=== PATIENT | female | born 1950 | race Caucasian/White ===

== ENCOUNTER 2017-01-28 19:26 | Inpatient (IN) | payer MEDICARE, OTHER ==
[~2017-01-28] VITALS: Ht 167.6 cm; Wt 48.1 kg
[~2017-01-28 19:26] MED LIST: BUDE1AER2 IH; FURO-570 PO; GLIP10TA12 PO; MULT1TAB12 PO; OMEP20EC6 PO; PRED10TA PO; SPIMDI INH; [UNRECOGNIZED DRUG - CODE] PO; [UNRECOGNIZED DRUG - CODE] PO
--- NOTE | 2017-01-28 19:26 | NUR ---
BIBA TO ER BED 3
[2017-01-28 19:32] VITALS: BP 112/84
[2017-01-28] MEDS ORDERED: NACL 0.9% 1,000 ML IV ONE (19:33)
--- NOTE | 2017-01-28 19:45 | NUR ---
PT IS 66/F BIBA TO ED C/O LOW BS 41MG/DL, D10% WAS GIVEN ENROUTE, WITH AGONAL RESPIRATIONS, DIAPHORETIC, SINUS TACHYCARDIA, GCS OF 3, 10 MINS AFER ADMINISTERING D10% BS OF 71MG/DL. NOW BS OF 107MG/DL, GCS 15. MED HX OF DM, HTN, COPD DENIES D; SKIN IS PINK/WARM/DRY; AAOX4 WITH EVEN AND STEADY GAIT; LUNGS CLEAR BL; HR EVEN AND REGULAR; PT DENIES ANY FEVER, CP, SOB AT THIS TIME; PATIENT STATES PAIN OF 0/10 AT THIS TIME; VSS; PATIENT POSITIONED FOR COMFORT; HOB ELEVATED; BEDRAILS UP X2; BED DOWN. ER MD MADE AWARE OF PT STATUS.
[2017-01-28 20:03] LABS: BASOPHILS % (AUTO) 0.4 % (0.0-2.0); EOSINOPHILS # (AUTO) 0.1 K/uL (0-0.4); EOSINOPHILS % (AUTO) 1.4 % (0.0-4.0); HEMATOCRIT 42.4 % (36-48); HEMOGLOBIN 13.9 g/dL (12.0-16.0); LYMPHOCYTES # (AUTO) 0.4 K/uL (2.5-16.5); LYMPHOCYTES % (AUTO) 6.5 % (20.5-51.1); MEAN CORPUSCULAR HEMOGLOBIN 29 pg (27-31); MEAN CORPUSCULAR HGB CONC 33 g/dL (33-37); MEAN CORPUSCULAR VOLUME 89 fL (80-94); MONOCYTES # (AUTO) 0.5 K/uL (0.8-1.0); MONOCYTES % (AUTO) 7.1 % (1.7-9.3); NEUTROPHILS # (AUTO) 5.7 K/uL (1.8-7.7); NEUTROPHILS % (AUTO) 84.6 % (42.2-75.2); PLATELET COUNT (AUTO) 262 K/uL (140-450); RED BLOOD CELL COUNT(AUTO) 4.77 MIL/uL (4.20-5.40); RED CELL DISTRIBUTION WIDTH 16.5 % (11.6-13.7); WHITE BLOOD COUNT (AUTO) 6.7 K/uL (4.8-10.8)
[2017-01-28 20:20] LABS: INR 1.1 (0.8-1.2); PROTHROMBIN TIME 10.5 secs (10.8-13.4)
[2017-01-28 20:23] LABS: LACTIC ACID 1.8 mmol/L (0.4-2.0)
[2017-01-28] MEDS ORDERED: ALBUTEROL SULFATE/IPRATROPIU 3 ML SOL IH ONE (20:30)
[2017-01-28 20:31] LABS: ANION GAP 9.2 (8-16); CALCIUM 8.5 mg/dL (8.5-10.1); CARBON DIOXIDE 33.7 mmol/L (21-32); CREATININE 0.5 mg/dL (0.6-1.3); POTASSIUM 3.9 mmol/L (3.5-5.1); TOTAL BILIRUBIN 0.2 mg/dL (0.0-1.0); TOTAL PROTEIN, SERUM 6.8 g/dL (6.4-8.2)
[2017-01-28] MEDS ORDERED: DEXTROSE 50% 50 ML SYR IVP ONE (20:35)
[2017-01-28] MEDS ORDERED: SULF500T6 PO (20:37)
--- NOTE | 2017-01-28 20:38 | NUR ---
PT BLOOD GLUCOSE 34. DR ESPINAL MADE AWARE. ORDERS RECIEVED.
[2017-01-28] MEDS ORDERED: methylPREDNISolone SS 80 MG in WATER STERILE 1 ML IV ONE (20:50)
--- NOTE | 2017-01-28 21:29 | NUR ---
Patient will be admitted to care of DR MANZANO . Admited to TELE. Will go to room 112B. Belongings list completed. Report to MARQUEZ SHANNON.
[2017-01-28 21:34] LABS: APPEARANCE,URINE CLEAR (CLEAR); BILIRUBIN,URINE NEGATIVE (NEGATIVE); BLOOD, URINE NEGATIVE (NEGATIVE); COLOR,URINE YELLOW (YELLOW); LEUKOCYTE ESTERASE ,URINE NEGATIVE (NEGATIVE); NITRITE, URINE NEGATIVE (NEGATIVE); PH,URINE 6.5 (5.0-9.0); PROTEIN,URINE NEGATIVE (NEGATIVE); UGLUCOSE TRACE (NEGATIVE); UROBILINOGEN,URINE 0.2 EU/dL (0.2 - 1)
--- NOTE | 2017-01-28 21:35 | NUR ---
PT ARRIVED ON UNIT IN STABLE CONDITION. NO SOB, NO SIGNS OF DISTRESS. PT IA AOX4, AMBULATES WITH ASSIST, GENERALIZED WEAKNESS. SISTER AT BEDSIDE. PT NOTED TO HAVE REDNESS TO UPPER BACK, BRUISE TO RT FRONTAL HEAD, AND BUE BRUISING. PT C/O BILATERAL ARM PAIN, WILL MEDICATE PER MD ORDER. PT WITH PRODUCTIVE COUGH. PT ON 4L O2 NC. PT C/O DIFFICULTY SWALLOWING, WILL MAKE MD AWARE. IV TO LT HAND 20G PATENT, ASYMPTOMATIC, INTACT, SALINE LOCKED. ORIENTED PT TO ROOM AND UNIT. PLAN OF CARE DISCUSSED WITH PT. SAFETY MEASURES IN PLACE. CALL LIGHT WITHIN REACH. WILL CONTINUE TO MONITOR.
[2017-01-28 21:51] LABS: BACTERIA,URINE FEW /HPF (None Seen); RBC,URINE NONE SEEN /HPF (0-5); SQUAMOUS EPITHELIAL CELL,UR None Seen /LPF (0-3 (FEW)); WBC,URINE 0-5 (RARE) /HPF (0-5)
[2017-01-28 22:26] VITALS: BP 150/68
[2017-01-28] MEDS ORDERED: [UNRECOGNIZED DRUG - CODE] PO (22:59)
[2017-01-28] MEDS ORDERED: DICL100T3 PO (23:06)
[2017-01-28] MEDS ORDERED: CEFU-18 PO (23:06)
[2017-01-28] MEDS ORDERED: [UNRECOGNIZED DRUG - CODE] PO (23:06)
[2017-01-28] MEDS ORDERED: LACT1CAP PO (23:06)
--- NOTE | 2017-01-28 23:10 | NUR ---
PT C/O PAIN, DIFFICULTY SWALLOWING, SOB, AND REQUESTING MED RECON TO BE REVIEWED BY MD. CAROL MANZANO TO MAKE AWARE. WAITING FOR CALL BACK.
--- NOTE | 2017-01-28 23:39 | NUR ---
SPOKE WITH MD Adam MANZANO, MD MADE AWARE OF PTS C/O PAIN, SOB, DIFFICULTY SWALLOWING, AND UPDATED MED RECON. MD GAVE ORDERS, WILL CARRY OUT.
[2017-01-28] MEDS ORDERED: KETOROLAC 30 MG/ML VIAL IM PRN (23:40)
[2017-01-29] VITALS: BP 144/70
[2017-01-29] MEDS: DEXT 5% /NACL 0.9% 1,000 ML IV SCH ×3 (00:02→19:40)
[2017-01-29] MEDS ORDERED: KETOROLAC 30 MG/ML VIAL IM/IVP PRN (00:05)
[2017-01-29] MEDS ORDERED: LORazepam 2 MG/ML VIAL IVP PRN (00:10)
[2017-01-29] MEDS ORDERED: IPRATROPIUM 0.02% 0.5 MG/2.5 ML NEBU INH PRN (00:10)
[2017-01-29] MEDS ORDERED: CARISOPRODOL 350 MG TAB PO PRN (00:10)
[2017-01-29] MEDS ORDERED: DEXTROSE 50% 50 ML SYR IVP PRN (00:10)
[2017-01-29] MEDS ORDERED: ONDANSETRON 4 MG/2 ML VIAL IVP PRN (00:10)
[2017-01-29] MEDS ORDERED: ALBUTEROL 0.083% 2.5 MG/3 ML NEBU INH PRN (00:10)
[2017-01-29] MEDS: ALBUTEROL SULFATE/IPRATROPIU 3 ML SOL IH PRN ×2 (00:15→05:11)
[2017-01-29] MEDS ORDERED: KETOROLAC 30 MG/ML VIAL IVP PRN (00:20)
--- NOTE | 2017-01-29 00:25 | NUR ---
CALL FROM ROLANDA IN RADIOLOGY, CAROTID US CANNOT BE DONE UNTIL AM, WILL ENDORSE TO AM NURSE.
--- NOTE | 2017-01-29 00:25 | NUR ---
ASLEEP EASILY AWAKENS BREATH SOUNDS COARSE LABORED BILATERAL SARTURATION 91% ON SUPPLEMENTAL OXYGEN AT 2 LPM VIA NC CXR DATED 01/28/2017 REVIEWED HHN PRN THERAPY GIVEN AT THIS TIME TOLERATED WELL WITHOUT INCIDENT SPECIMEN CUP AT BEDSIDE FOR POSSIBLE SPUTUM CULTURE MIRTHA/RN AWARE
--- NOTE | 2017-01-29 00:30 | NUR ---
VS STABLE. PT ON 3L O2 NC. PT STATES HER PAIN LEVEL IS DECEASING. SISTER AT BEDSIDE. NO SOB, NO SIGNS OF DISTRESS. IV SITE ASYMPTOMATIC, INTACT, IVF RUNNING. PLAN OF CARE DISCUSSED WITH PT AND HER SISTER. SAFETY MEASURES IN PLACE. CALL LIGHT WITHIN REACH. WILL CONTINUE TO MONITOR.
--- NOTE | 2017-01-29 02:34 | NUR ---
PT ASLEEP IN BED. NO SOB, NO SIGNS OF DISTRESS. PT ON 3L O2 NC. IV SITE ASYMPTOMATIC, INTACT, IVF RUNNING. SAFETY MEASURES IN PLACE. CALL LIGHT WITHIN REACH. WILL CONTINUE TO MONITOR.
--- NOTE | 2017-01-29 03:45 | NUR ---
VS STABLE. PT ON 3L O2 NC. PT DENIES PAIN AT THIS TIME. IV SITE ASYMPTOMATIC, INTACT, PATENT, IVF RUNNING. NO SOB, NO SIGNS OF DISTRESS. SAFETY MEASURES IN PLACE. CALL LIGHT WITHIN REACH. WILL CONTINUE TO MONITOR.
[2017-01-29 04:00] VITALS: BP 141/60
--- NOTE | 2017-01-29 04:00 | NUR ---
ASLEEP RESTING WELL NO DISTRESS NOTED
--- NOTE | 2017-01-29 05:05 | NUR ---
ASSISTED PT TO RESTROOM. PT WITH BM. PT C/O SOB. PAGED RT. RT TATI TO SEE PT.
--- NOTE | 2017-01-29 05:10 | NUR ---
ASLEEP EASILY AWAKEN PATIENT C/O OF SOB ASSESSMENT COMPLETED HHN PRN THERAPY GIVEN AT THIS TIME TOLERATED WELL WITHOUT INCIDENT MODERATE MOIST NPC
--- NOTE | 2017-01-29 06:50 | NUR ---
PULMICORT 0.5MG WAS NOT IN PIXIS FOR PT AT 0650
--- NOTE | 2017-01-29 07:09 | NUR ---
ENDORSED PT IN STABLE CONDITION TO MARQUEZ DUBOIS. ALL NEEDS HAVE BEEN MET AT THIS TIME.
--- NOTE | 2017-01-29 07:11 | NUR ---
RECEIVED REPORT FROM MARQUEZ SHANNON. PT IS SLEEPING BUT EASILY AWAKEN, AAO X4, PT HAS BRUISING IN BILATERAL UPPER EXTREMITIES, BRUISE ON RIGHT SIDE OF THE HEAD, IV ON LEFT HAND PATENT AND INTACT INFUSING FLUID WELL. ON O2 3L NC, NO S/S OF RESPIRATORY DISTRESS OR DISCOMFORT NOTED, DISCUSSED PLAN OF CARE, PT VERBALIZED UNDERSTANDING, SAFETY/FALL PRECAUTIONS IN PLACE, CALL LIGHT WITHIN REACH, WILL CONTINUE TO MONITOR.
[2017-01-29 07:12] LABS: BASOPHILS % (AUTO) 0.2 % (0.0-2.0); EOSINOPHILS # (AUTO) 0.1 K/uL (0-0.4); EOSINOPHILS % (AUTO) 1.1 % (0.0-4.0); HEMATOCRIT 36.1 % (36-48); HEMOGLOBIN 11.7 g/dL (12.0-16.0); LYMPHOCYTES # (AUTO) 0.6 K/uL (2.5-16.5); LYMPHOCYTES % (AUTO) 7.3 % (20.5-51.1); MEAN CORPUSCULAR HEMOGLOBIN 29 pg (27-31); MEAN CORPUSCULAR HGB CONC 32 g/dL (33-37); MEAN CORPUSCULAR VOLUME 89 fL (80-94); MONOCYTES # (AUTO) 0.4 K/uL (0.8-1.0); MONOCYTES % (AUTO) 5.2 % (1.7-9.3); NEUTROPHILS # (AUTO) 6.6 K/uL (1.8-7.7); NEUTROPHILS % (AUTO) 86.2 % (42.2-75.2); PLATELET COUNT (AUTO) 224 K/uL (140-450); RED BLOOD CELL COUNT(AUTO) 4.04 MIL/uL (4.20-5.40); RED CELL DISTRIBUTION WIDTH 16.5 % (11.6-13.7)
[2017-01-29 07:15] LABS: ANION GAP 10.9 (8-16); CALCIUM 7.6 mg/dL (8.5-10.1); CARBON DIOXIDE 27.5 mmol/L (21-32); CREATININE 0.5 mg/dL (0.6-1.3); POTASSIUM 3.4 mmol/L (3.5-5.1)
[2017-01-29] MEDS: BLOOD GLUCOSE MONITORING 1 DEV DEV FS SCH ×4 (07:19→21:00)
[2017-01-29 07:26] LABS: WHITE BLOOD COUNT (AUTO) 7.7 K/uL (4.8-10.8)
[2017-01-29 08:00] VITALS: BP 145/72
--- NOTE | 2017-01-29 08:28 | NUR ---
PATIENT HAS BEEN SCREENED AND CATEGORIZED HIGH NUTRITION RISK. PATIENT WILL BE SEEN WITHIN 1-2 DAYS OF ADMISSION. 01/29/17-01/30/[address]
[2017-01-29] MEDS ORDERED: MINERALS PO SCH (09:00)
[2017-01-29] MEDS ORDERED: NON-FORMULARY ITEM (Budesonide/Formoterol Fumarate* (Symbicort 80-4.5 Mcg Inhaler*) 2 PUFF IH SCH (09:00)
[2017-01-29] MEDS: METOPROLOL 50 MG TAB PO SCH ×2 (09:00→22:02)
[2017-01-29] MEDS ORDERED: NON-FORMULARY ITEM (Omeprazole 20 MG) PO SCH (09:00)
[2017-01-29] MEDS ORDERED: [UNRECOGNIZED DRUG - OTHER] PO SCH (09:00)
[2017-01-29] MEDS ORDERED: DICLOFENAC SODIUM 100 MG PO SCH (09:00)
[2017-01-29] MEDS: DICLOFENAC 25 MG TABEC PO SCH (09:00)
[2017-01-29] MEDS ORDERED: NON-FORMULARY ITEM (Tiotropium Bromide* (Spiriva Mdi*) 2 PUFF) INH SCH (09:00)
[2017-01-29] MEDS ORDERED: MULTIVITAMIN PO SCH (09:00)
[2017-01-29] MEDS ORDERED: [UNRECOGNIZED DRUG - OTHER] PO SCH (09:00)
[2017-01-29] MEDS: CYCLOBENZAPRINE 10 MG TAB PO SCH (09:00)
[2017-01-29] MEDS: FUROSEMIDE 40 MG TAB PO SCH (09:00)
[2017-01-29] MEDS ORDERED: PANTOPRAZOLE 40 MG TABEC PO SCH (09:00)
[2017-01-29] MEDS ORDERED: BUDESONIDE 9 MG PO SCH (09:00)
[2017-01-29] MEDS ORDERED: CYCLOBENZAPRINE HCL 15 MG PO SCH (09:00)
[2017-01-29] MEDS: MULTIVITAMIN/MINERALS 1 TAB PO SCH (09:00)
[2017-01-29] MEDS: SACCHAROMYCES 250 MG CAP PO SCH ×2 (09:00→22:03)
[2017-01-29] MEDS: methylPREDNISolone SS 40 MG/ML VIAL IVP SCH ×2 (09:38→22:02)
--- NOTE | 2017-01-29 09:41 | NUR ---
DUE MEDICATION GIVEN. PT TOLERATED WELL. X-RAY TECH AT BEDSIDE.
[2017-01-29] MEDS: BUDESONIDE 0.5 MG/2 ML NEBU INH SCH ×2 (10:27→20:16)
[2017-01-29] MEDS: IPRATROPIUM 0.02% 0.5 MG/2.5 ML NEBU INH SCH ×3 (10:27→20:14)
--- NOTE | 2017-01-29 11:56 | NUR ---
BLOOD SUGAR CHECKED, 149, NO INSULIN COVERAGE NEEDED, CALL LIGHT WITHIN REACH, WILL CONTINUE TO MONITOR.
[2017-01-29 12:00] VITALS: BP 138/66
--- NOTE | 2017-01-29 13:10 | NUR ---
PT IS SLEEPING AT THIS TIME, NO S/S OF RESPIRATORY DISTRESS OR DISCOMFORT NOTED, CALL LIGHT WITHIN REACH, WILL CONTINUE TO MONITOR.
[2017-01-29] MEDS: ALBUTEROL 0.083% 2.5 MG/3 ML NEBU INH SCH ×2 (13:23→20:18)
[2017-01-29 16:00] VITALS: BP 133/59
--- NOTE | 2017-01-29 16:33 | NUR ---
IV ON LEFT HAND LEAKING, DISCONTINUED AND REMOVED, CATHETER TIP INTACT. STARTED NEW IV ON RIGHT FA 22G, PT TOLERATED WELL.
--- NOTE | 2017-01-29 16:50 | NUR ---
BLOOD SUGAR CHECKED, INSULIN COVERAGE NOT GIVEN, PT HAS NO DIET AT THIS TIME.
[2017-01-29] MEDS ORDERED: POTASSIUM CHLORIDE 10 MEQ TABER PO SCH (16:51)
--- NOTE | 2017-01-29 17:03 | NUR ---
* ST NOTE * Bedside Dysphagia and Oral Mechanism exams completed at bedside with Nursing present during former half of evaluation. Pt tolerating 8/8 alternating PO trials of regular solid saltine crackers w/out s/s of aspiration or choking but exhibiting occasional to minimal residue on lingua after PO intake of regular solids. Pt and caregiver/Nursing education completed regarding safe swallow compensatory strategies pt can use to clear oral cavity of pocketed food/residue after PO intake, with pt exhibiting return demonstration of strategies as trained by clinician, and with caregiver/nursing verbalizing understanding of clinician's recommendations. Pt also tolerating 6/6 alternating PO trials of thin liquid apple juice via a straw w/out s/s of aspiration, exhibiting clear voicing WFL w/out wet or gargly vocal quality after PO intake of thin liquids. Because pt exhibiting minimal to occasional residue in oral cavity after PO intake of regular solids at this time, it is recommended pt's PO diet consistency be modified to Mechanical soft textures with thin liquids for all meals, with distal supervision by caregivers/staff during PO intake to assure aspiration precautions are in place. However if pt requests a diet upgrade at a later time, pt is safe for PO intake of regular solids with thin liquids with strict aspiration precautions. Pt and caregiver/nursing education completed regarding results of evaluation; benefits of abiding by recommended PO diet consistency and aspiration precautions; and prognosis for improvement; with pt and caregiver/nursing agreeable with and verbalizing understanding of clinician's recommendations. Pt also exhibiting return demonstration of aspiration precautions as trained by clinician. Recommend: - PO diet consistency of Mechanical soft textures with thin liquids for all meals - Pt is safe for PO intake of regular solids with thin liquids if pt requests for a diet upgrade - Distal supervision by caregivers/staff during PO intake to assure aspiration precautions are in place No further ST follow up recommended at this time. G8996 CJ G8997 CI G8998 CI NOMS Level 2 Time In/Out: 16:15 - 17:00
--- NOTE | 2017-01-29 17:40 | NUR ---
PT IS SLEEPING AT THIS TIME, NO S/S OF RESPIRATORY DISTRESS OR DISCOMFORT NOTED, CALL LIGHT WITHIN REACH, WILL CONTINUE TO MONITOR.
--- NOTE | 2017-01-29 19:15 | NUR ---
RECEIVED REPORT FROM MARQUEZ VIERA/CECELIA AT BEDSIDE. INITIAL ASSESSMENT COMPLETED. PT AAOX4. PT AMBULATES WITH ASSIST. PT HAS IV ACCESS TO RIGHT FOREARM G 22; ASYMPTOMATIC, PATENT AND INTACT INFUSING FLUIDS WELL. PT HAS SOME BRUISING ON BOTH ARMS AND BACK. PT ON 02 2L NC. EXPLAINED PLAN OF CARE TO PT AND SISTER. THEY WANT TO TALK TO DR. MANZANO WHEN HE COMES IN. WILL FOLLOW UP. SAFETY MEASURES IN PLACE. CALL LIGHT WITHIN REACH.
--- NOTE | 2017-01-29 19:15 | NUR ---
ENDORSED PT TO MARQUEZ WHITE. FOR CONTINUITY OF CARE. PT IS STABLE AT THIS TIME.
--- NOTE | 2017-01-29 19:50 | NUR ---
PT HAS SCDS AT BEDSIDE, BUT STATED THAT SHE DOES NOT NEED THEM. SHE STATED THAT SCDS MAKE HER HOT. I EXPLAINED TO HER THE RISKS/BENEFITS OF WEARING THE SCDS BUT PT STILL REFUSES TO WEAR THEM. WILL CONTINUE TO MONITOR PT.
--- NOTE | 2017-01-29 19:55 | NUR ---
PT'S SISTER UPSET STATED THAT PT HAS BEEN ASKING FOR PAIN MEDICATIONS SINCE EARLY IN THE DAY AND HAS NOT RECEIVED ANY; WILL MEDICATE PT ORDERED. CALL LIGHT WITHIN REACH.
[2017-01-29 20:00] VITALS: BP 148/81
--- NOTE | 2017-01-29 20:01 | NUR ---
PT COMPLAINING OF ABDOMINAL PAIN 06/27, VS STABLE WILL MEDICATE ORDERED.
[2017-01-29] MEDS: MORPHINE SULFATE 4 MG/ML SYR IVP PRN (20:03)
--- NOTE | 2017-01-29 20:20 | NUR ---
DR. MANZANO IN TO SEE PT. WILL FOLLOW UP ON ORDERS.
[2017-01-29] MEDS ORDERED: guaiFENesin DM SUGAR FREE 100 MG/5 ML UDBTL PO PRN (20:55)
--- NOTE | 2017-01-29 21:45 | NUR ---
CALLED DR. NATACHA Medina TO ASK HIM IF PT CAN HAVE A DIET. DR. JEAN ORDERED FOR MECHANICAL SOFT DIET. WILL CONTINUE TO MONITOR PT.
[2017-01-29] MEDS: INSULIN LISPRO SLIDING SCALE 100 UNITS/ML VIAL SUBQ PRN (22:14)
--- NOTE | 2017-01-29 22:17 | NUR ---
PT TOLERATED 2100 MEDS WELL. WILL CONTINUE TO MONITOR PT.
--- NOTE | 2017-01-29 22:25 | NUR ---
CALLED DR. NATACHA Medina TO ASK FOR ORDER FOR COUGH MEDICATION. ORDER ROBITUSSIN 10 ML Q6H PRN. WILL FOLLOW UP ON ORDERS.
--- NOTE | 2017-01-29 23:58 | NUR ---
PT COMPLAINING OF ABDOMINAL PAIN 07/28. VS STABLE, WILL MEDICATE ORDERED.
[2017-01-30] VITALS: BP 151/78
[2017-01-30] MEDS: guaiFENesin/CODEINE 100/10MG 5 ML UDC PO PRN (00:01)
[2017-01-30] MEDS: MORPHINE SULFATE 4 MG/ML SYR IVP PRN ×3 (00:01→16:09)
[2017-01-30] MEDS: DEXT 5% /NACL 0.9% 1,000 ML IV SCH ×2 (00:02→13:32)
--- NOTE | 2017-01-30 00:11 | NUR ---
PT MEDICATED FOR PAIN, ALSO PT REQUESTED COUGH MEDICATION. PT STABLE, CALL LIGHT WITHIN REACH.
--- NOTE | 2017-01-30 01:35 | NUR ---
RESPIRATORY THERAPIST AT BEDSIDE. PT STABLE, WILL CONTINUE TO MONITOR PT.
[2017-01-30] MEDS: ALBUTEROL 0.083% 2.5 MG/3 ML NEBU INH SCH ×2 (01:36→06:34)
--- NOTE | 2017-01-30 02:16 | NUR ---
PT AWAKE, WATCHING TV. PT DENIES ANY PAIN AT THIS TIME. CALL LIGHT WITHIN REACH. WILL CONTINUE TO MONITOR PT.
[2017-01-30 04:00] VITALS: BP 135/69
--- NOTE | 2017-01-30 04:10 | NUR ---
CHECKED ON PT VS ARE STABLE, PT STATED THAT SHE FELT HOT. TEMP IS 98.9. PT WAS COVERED WITH SEVERAL BLANKETS. BLANKETS REMOVED, PT COVERED WITH ONLY ONE SHEET. WILL CONTINUE TO MONITOR PT.
[2017-01-30] MEDS: PANTOPRAZOLE 40 MG TABEC PO SCH (05:56)
--- NOTE | 2017-01-30 06:03 | NUR ---
PT COMPLAINING OF ABDOMINAL PAIN 06/27. VS STABLE, WILL MEDICATE ORDERED.
[2017-01-30 06:18] LABS: BASOPHILS % (AUTO) 0.4 % (0.0-2.0); EOSINOPHILS # (AUTO) 0.1 K/uL (0-0.4); HEMATOCRIT 35.6 % (36-48); HEMOGLOBIN 11.4 g/dL (12.0-16.0); LYMPHOCYTES # (AUTO) 1.1 K/uL (2.5-16.5); LYMPHOCYTES % (AUTO) 13.3 % (20.5-51.1); MEAN CORPUSCULAR HEMOGLOBIN 29 pg (27-31); MEAN CORPUSCULAR HGB CONC 32 g/dL (33-37); MEAN CORPUSCULAR VOLUME 90 fL (80-94); MONOCYTES # (AUTO) 0.8 K/uL (0.8-1.0); MONOCYTES % (AUTO) 9.1 % (1.7-9.3); NEUTROPHILS # (AUTO) 6.4 K/uL (1.8-7.7); NEUTROPHILS % (AUTO) 76.2 % (42.2-75.2); PLATELET COUNT (AUTO) 200 K/uL (140-450); RED BLOOD CELL COUNT(AUTO) 3.94 MIL/uL (4.20-5.40); RED CELL DISTRIBUTION WIDTH 17.1 % (11.6-13.7); WHITE BLOOD COUNT (AUTO) 8.4 K/uL (4.8-10.8)
[2017-01-30 06:20] LABS: ANION GAP 8.2 (8-16); CALCIUM 7.5 mg/dL (8.5-10.1); CARBON DIOXIDE 29.9 mmol/L (21-32); CREATININE 0.4 mg/dL (0.6-1.3); POTASSIUM 3.1 mmol/L (3.5-5.1)
[2017-01-30] MEDS: BLOOD GLUCOSE MONITORING 1 DEV DEV FS SCH ×4 (06:21→21:04)
[2017-01-30] MEDS: IPRATROPIUM 0.02% 0.5 MG/2.5 ML NEBU INH SCH (06:34)
[2017-01-30] MEDS: BUDESONIDE 0.5 MG/2 ML NEBU INH SCH (06:45)
--- NOTE | 2017-01-30 06:54 | NUR ---
RT AT BEDSIDE PROVIDING BREATHING TREATMENT FOR PT.
--- NOTE | 2017-01-30 07:14 | NUR ---
ASSUMED CONTINUITY OF CARE. NO SIGNS AND SYMPTOMS OF ACUTE DISTRESS NOTED. INITIAL ASSESSMENT DONE. KEEP COMFORTABLE ON BED. EXPLAINED DIAGNOSIS, PLAN OF CARE, PAIN MANAGEMENT TEACHING, USE OF CALL LIGHT/BED/TV/BATHROOM. VERBALIZED UNDERSTANDING. FALL PRECAUTION APPLIED. CALL LIGHT WITHIN REACH.
--- NOTE | 2017-01-30 07:14 | NUR ---
ENDORSED PT IN STABLE CONDITION TO MARQUEZ ROSS FOR CONTINUITY OF CARE.
--- NOTE | 2017-01-30 07:15 | NUR ---
Patient's Plan of Care was discussed and reviewed with SKI TECHNICIAN: CODY Tidwell
[2017-01-30 08:00] VITALS: BP 141/59
[2017-01-30] MEDS: methylPREDNISolone SS 40 MG/ML VIAL IVP SCH ×2 (08:33→20:56)
[2017-01-30] MEDS: MULTIVITAMIN/MINERALS 1 TAB PO SCH (08:50)
[2017-01-30] MEDS: DICLOFENAC 25 MG TABEC PO SCH (08:50)
[2017-01-30] MEDS: SACCHAROMYCES 250 MG CAP PO SCH ×2 (08:50→20:57)
[2017-01-30] MEDS: METOPROLOL 50 MG TAB PO SCH ×2 (08:51→20:56)
[2017-01-30] MEDS: FUROSEMIDE 40 MG TAB PO SCH (08:51)
[2017-01-30] MEDS: CYCLOBENZAPRINE 10 MG TAB PO SCH (08:51)
--- NOTE | 2017-01-30 09:00 | NUR ---
CALLED DR DALEY'S OFFICE TO INFORM HER ABOUT THE CONSULTATION ORDERED FOR THE PATIENT
--- NOTE | 2017-01-30 09:12 | NUR ---
SPOKE WITH DR TAFOYA AND DR Kevyn MANZANO AND MADE THEM AWARE OF THE CONSULTATION ORDER FOR THE PATIENT. DR MANZANO TO SEE THE PATIENT TODAY
--- NOTE | 2017-01-30 09:23 | NUR ---
PAGED ENMA CRANE REGARDING PT. K LEVEL 3.1. LEFT CALL BACK NUMBER.
--- NOTE | 2017-01-30 09:32 | NUR ---
ENMA CRANE CALLED BACK, INFORMED OF PT. K LEVEL 3.1. GOT T.O., READ BACK AND VERIFIED.
--- NOTE | 2017-01-30 09:37 | NUR ---
SPOKE WITH DR. Adam MANZANO TO CHANGE HHN TX FROM ATROVENT 0.5MG QID AND ALBUTEROL 2.5MG TO DUONEB 3ML Q6
[2017-01-30] MEDS ORDERED: POTASSIUM CHLORIDE 20% 40 MEQ/15 ML UDC PO SCH (10:00)
--- NOTE | 2017-01-30 10:16 | NUR ---
PHYSICAL THERAPIST CAME FOR PT. PT TREATMENT. TOLERATED WELL. NO C/O PAIN. KEEP FREE FROM INJURY.
[2017-01-30] MEDS: INSULIN LISPRO SLIDING SCALE 100 UNITS/ML VIAL SUBQ PRN ×2 (11:39→16:30)
[2017-01-30 12:00] VITALS: BP 143/70
[2017-01-30] MEDS: ALBUTEROL SULFATE/IPRATROPIU 3 ML SOL IH SCH ×2 (12:48→19:16)
--- NOTE | 2017-01-30 13:05 | NUR ---
ENMA CRANE CAME, CHECK PT. CHART, AND SEEN PT..
--- NOTE | 2017-01-30 14:32 | NUR ---
DR. TAFOYA CAME, CHECKED PT. CHART, AND SEEN PT..
[2017-01-30 16:00] VITALS: BP 148/73
--- NOTE | 2017-01-30 16:50 | NUR ---
01/31/16 RD INITIAL ASSESSMENT COMPLETED PLEASE REFER TO NUTRITION ASSESSMENT UNDER CARE ACTIVITY FOR ESTIMATED NUTRITIONAL NEEDS. RD RECOMMENDATIONS: 1. CONTINUE MECHANICAL SOFT DIET TOLERATED PER MD 2. RD TO ADD HEALTH SHAKES TID FOR ADDITIONAL 900 KCAL AND 27 GM PROTEIN DAILY TO AID IN INCREASED KCAL AND PROTEIN INTAKE D/T PT UNDERWEIGHT 3. ENCOURAGE INCREASED PO INTAKES 4. IF/WHEN PT PO INTAKES >50% CONSIDER ADDING CCHO 60 GM TO CURRENT DIET 5. RD PROVIDED PT WITH DM AND ULCERATIVE COLITIS DIET EDUCATION. PT ACCEPTED. 6. RD WILL F/U 3-5 DAYS; MODERATE RISK. JEAN PIERRE REYEZ RD
--- NOTE | 2017-01-30 17:15 | NUR ---
ENMA CRANE CAME, CHECKED PT. CHART, AND SEEN PT.. NO ORDER RECEIVED.
--- NOTE | 2017-01-30 19:03 | NUR ---
BEDSIDE REPORT GIVEN TO CHRISTOPHER PRECIADO -MARQUEZ. IVF INFUSING WELL. IN STABLE CONDITION.
--- NOTE | 2017-01-30 19:15 | NUR ---
RECEIVED REPORT FROM MARQUEZ ROSS AT BEDSIDE. INITIAL ASSESSMENT COMPLETED. PT AAOX4. PT AMBULATES WITH ASSIST. PT HAS IV ACCESS TO RIGHT FOREARM G 22; ASYMPTOMATIC, PATENT AND INTACT INFUSING FLUIDS WELL. PT HAS SOME BRUISING ON BOTH ARMS AND BACK, PT STATED THAT SHE BRUISES EASILY. PT ON 02 2L NC. EXPLAINED PLAN OF CARE TO PT AND SHE VERBALIZES UNDERSTANDING. FALL/SAFETY MEASURES IN PLACE. CALL LIGHT WITHIN REACH. CALL LIGHT WITHIN REACH.
[2017-01-30 20:00] VITALS: BP 140/66
--- NOTE | 2017-01-30 21:04 | NUR ---
PT TOLERATED 2100 MEDS WELL. VS STABLE, PT STABLE; WILL CONTINUE TO MONITOR PT.
--- NOTE | 2017-01-30 23:30 | NUR ---
PT ASKED TO HAVE IV DISCONNECTED TO AMBULATE TO THE RESTROOM. PT BACK IN BED NOW. RESTING COMFORTABLY. CALL LIGHT WITHIN REACH.
[2017-01-31] VITALS: BP 138/75
[2017-01-31] MEDS: ALBUTEROL SULFATE/IPRATROPIU 3 ML SOL IH SCH ×4 (00:14→20:33)
[2017-01-31] MEDS: DEXT 5% /NACL 0.9% 1,000 ML IV SCH ×2 (01:29→11:40)
--- NOTE | 2017-01-31 01:36 | NUR ---
PT SLEEPING AT THIS TIME, NO SIGNS OF DISTRESS NOTED. WILL CONTINUE TO MONITOR PT.
--- NOTE | 2017-01-31 02:29 | NUR ---
PT SLEEPING AT THIS TIME. NO SIGNS OF DISTRESS/DISCOMFORT NOTED. WILL CONTINUE TO MONITOR PT.
[2017-01-31 04:00] VITALS: BP 142/79
--- NOTE | 2017-01-31 04:05 | NUR ---
PT AWAKE, WATCHING TV. PT DENIES PAIN OR DISCOMFORT AT THIS TIME, WILL CONTINUE TO MONITOR PT.
[2017-01-31] MEDS: PANTOPRAZOLE 40 MG TABEC PO SCH (05:46)
--- NOTE | 2017-01-31 05:53 | NUR ---
PT COMPLAINING OF ABDOMINAL PAIN 06/27. VS ARE STABLE, WILL CONTINUE TO MONITOR PT.
[2017-01-31] MEDS: MORPHINE SULFATE 4 MG/ML SYR IVP PRN ×2 (06:00→13:33)
[2017-01-31 06:05] LABS: BASOPHILS % (AUTO) 0.1 % (0.0-2.0); EOSINOPHILS # (AUTO) 0.1 K/uL (0-0.4); HEMATOCRIT 34.6 % (36-48); HEMOGLOBIN 11.2 g/dL (12.0-16.0); LYMPHOCYTES # (AUTO) 0.8 K/uL (2.5-16.5); LYMPHOCYTES % (AUTO) 13.1 % (20.5-51.1); MEAN CORPUSCULAR HEMOGLOBIN 29 pg (27-31); MEAN CORPUSCULAR HGB CONC 32 g/dL (33-37); MEAN CORPUSCULAR VOLUME 89 fL (80-94); MONOCYTES # (AUTO) 0.4 K/uL (0.8-1.0); MONOCYTES % (AUTO) 6.1 % (1.7-9.3); NEUTROPHILS # (AUTO) 4.8 K/uL (1.8-7.7); NEUTROPHILS % (AUTO) 79.7 % (42.2-75.2); PLATELET COUNT (AUTO) 214 K/uL (140-450); RED CELL DISTRIBUTION WIDTH 16.2 % (11.6-13.7); WHITE BLOOD COUNT (AUTO) 6.1 K/uL (4.8-10.8)
[2017-01-31 06:18] LABS: ANION GAP 6.7 (8-16); CALCIUM 7.9 mg/dL (8.5-10.1); CARBON DIOXIDE 33.2 mmol/L (21-32); CREATININE 0.4 mg/dL (0.6-1.3)
[2017-01-31 06:38] LABS: POTASSIUM 2.9 mmol/L (3.5-5.1)
--- NOTE | 2017-01-31 06:49 | NUR ---
CALLED DR. NATACHA Medina TO NOTIFY HIM OF PT'S CRITICAL LAB VALUE OF K 2.9. WILL FOLLOW UP ON ORDERS.
--- NOTE | 2017-01-31 07:10 | NUR ---
AWAKE AND ALERT RESPONSIVE ENCOURAGED DEEP BREATH AND COUGH PATIENT UNABLE TO PTODUCE SECRETIONS PATIENT SWALLOWING SECRETIONS PATIENT C/O NASAL DRYNESS WIHT SUPPLEMENTAL OXYGEN USE POST THERAPY ADDED HUMIDIFIER
[2017-01-31] MEDS: BLOOD GLUCOSE MONITORING 1 DEV DEV FS SCH ×4 (07:23→20:41)
--- NOTE | 2017-01-31 07:30 | NUR ---
Patient's Plan of Care was discussed and reviewed with JAKE: CODY.
--- NOTE | 2017-01-31 07:35 | NUR ---
ENDORSED PT IN STABLE CONDITION TO MARQUEZ ROSS FOR CONTINUITY OF CARE.
[2017-01-31 08:00] VITALS: BP 155/68
[2017-01-31] MEDS ORDERED: KCL 20 MEQ/WATER INJ PREMIX 200 ML IV SCH (08:00)
[2017-01-31] MEDS: methylPREDNISolone SS 40 MG/ML VIAL IVP SCH ×2 (08:32→20:42)
[2017-01-31] MEDS: SACCHAROMYCES 250 MG CAP PO SCH (08:34)
[2017-01-31] MEDS: METOPROLOL 50 MG TAB PO SCH ×2 (08:34→20:43)
[2017-01-31] MEDS: MULTIVITAMIN/MINERALS 1 TAB PO SCH (08:34)
[2017-01-31] MEDS: CYCLOBENZAPRINE 10 MG TAB PO SCH (08:34)
[2017-01-31] MEDS: FUROSEMIDE 40 MG TAB PO SCH ×2 (08:35→08:57)
[2017-01-31] MEDS: DICLOFENAC 25 MG TABEC PO SCH (08:35)
--- NOTE | 2017-01-31 09:07 | NUR ---
PHYSICAL THERAPIST CAME FOR PT. PT TREATMENT. PT. WENT TO PT UNIT FOR PT. EVAL AND TREATMENT.
--- NOTE | 2017-01-31 09:25 | NUR ---
PT. CAME BACK FROM PT EVAL AND TREATMENT. PT JOSEPH REPORTED THAT PT. TOLERATED PT TREATMENT WELL AND HAD 94% TO 95% O2 AT ROOM AIR.
--- NOTE | 2017-01-31 11:12 | NUR ---
SS NOTE: I SPOKE WITH PT BEDSIDE REGARDING HER HOME OXYGEN. SHE STATED THAT SHE ONLY HAS THE CONCENTRATOR AT HOME BECAUSE SHE PREVIOUSLY RECEIVED THE PORTABLE TANK BUT FELT THAT IT WAS TOO HEAVY SO SHE SENT IT BACK. SHE ALSO STATED THAT JONIBRUCE PROVIDED HER CONCENTRATOR. I INQUIRED ABOUT PT GOING TO MD APPTS AND OUTSIDE OF HER HOME, SHE REPORTED THAT SHE FEELS FINE WITHOUT THE OXYGEN AND DOES NOT WANT A PORTABLE TANK SENT TO HER HOUSE. SHE ALSO REPORTED THAT SHE WILL TALK TO HER PCP ABOUT GETTING THE PORTABLE OXYGEN TANK THAT SHE SEES ON TV.
--- NOTE | 2017-01-31 11:58 | NUR ---
RAIN CRANE CAME, CHECKED PT. CHART, SEEN PT.. ALSO INFORMED RAIN CRANE OF LATEST VS AND VS AT 0800. NO ORDER RECEIVED. INFORMED CHARGE NURSE SONYA HARLEY.
[2017-01-31 12:00] VITALS: BP 151/74
[2017-01-31] MEDS ORDERED: POTASSIUM CHLORIDE 20 MEQ, LIDOCAINE 1% 25 MG in NACL 0.9% 250 ML IV SCH (12:00)
--- NOTE | 2017-01-31 13:30 | NUR ---
DR. DALEY CAME, CHECKED PT. CHART AND SEEN PT..
--- NOTE | 2017-01-31 14:16 | NUR ---
CALLED DR. FORRESTER AT AND SPOKE TO CARMINA AND INFORMED OF PT. CONSULT. LEFT MESSAGE AND CALL BACK NUMBER. INFORMED CHARGE NURSE SONYA HARLEY.
[2017-01-31 16:00] VITALS: BP 131/80
--- NOTE | 2017-01-31 16:14 | NUR ---
PAGED ENMA CRANE REGARDING PT. NOT ABLE TO TOLERATE K-RIDER. LEFT CALL BACK NUMBER. INFORMED CHARGE NURSE SONYA HARLEY.
[2017-01-31] MEDS: INSULIN LISPRO SLIDING SCALE 100 UNITS/ML VIAL SUBQ PRN (17:08)
--- NOTE | 2017-01-31 19:20 | NUR ---
BEDSIDE REPORT GIVEN TO ANGELA GARCIA -MARQUEZ. IN STABLE CONDITION. ALSO ENDORSED ABOUT K-RIDER THAT WAS NOT TOLERATED BY PT. AND ENMA CRANE WAS PAGED.
[2017-01-31 20:00] VITALS: BP 150/74
[2017-01-31] MEDS: MORPHINE SULFATE 2 MG/ML SYR IVP PRN (20:43)
--- NOTE | 2017-01-31 20:52 | NUR ---
PM MEDS ADMINISTERED, PATIENT TOLERATED WELL, PATIENT AND SISTER AND BEDSIDE UPSET BECAUSE THE PATIENT COULD NOT TOLERATE THE K-RIDER D/T PAIN, PER DAY SHIFT BACK TENDER PULP DRIER THE DR WAS PAGED. PATIENT AND SISTER ASKING IF PATIENT CAN TAKE POTASSIUM PILLS INSTEAD. IF DOCTOR DOESN'T RESPOND OR NOTHING IS ORDERED, PATIENT'S SISTER SAID SHE WOULD LIKE TO SPEAK TO THE CHARGE NURSE. INFORMED CHARGE NURSE TAMMY BOWER PAGE
--- NOTE | 2017-01-31 21:00 | NUR ---
PAGED DR ENMA MANZANO, AWAITING CALL BACK.
--- NOTE | 2017-01-31 21:22 | NUR ---
NO CALL BACK FROM ENMA CHA, PAGED Kevyn CHA WILL WAIT FOR CALL BACK.
--- NOTE | 2017-01-31 21:50 | NUR ---
NO CALL BACK FROM Kevyn MANZANO, CALLED MD'S CELL, EXPLAINED PATIENT IS UPSET WITH ABOUT NOT BEING SEEN AND WOULD LIKE POTASSIUM PILLS INSTEAD OF THE IV K-RIDER. MD ORDERED K DUR 40 MEQ PO X1. WILL FOLLOW UP WITH ORDER, EXPLAINED TO PATIENT THE DR PUT IN THE ORDER, PATIENT'S SISTER VOICED DISSATISFACTION WITH MD Keith MANZANO BECAUSE "HE HAS BARELY COME IN TO SEE THE PATIENT AND HE WAS NOT DOING ANYTHING ABOUT THE POTASSIUM." AND STATED SHE WOULD LIKE HER SISTER TO HAVE DR Kevyn MANZANO THE PATIENT'S PRIMARY DOCTOR WHILE SHE IS HERE. LET CHARGE NURSE CHELI KNOW THE PATIENT'S SISTERS WISHES AND LET THEM KNOW WE CAN LET THE DOCTORS KNOW IN THE MORNING.
[2017-01-31] MEDS ORDERED: POTASSIUM CHLORIDE 10 MEQ TABER PO SCH (22:00)
[2017-01-31] MEDS: guaiFENesin/CODEINE 100/10MG 5 ML UDC PO PRN (22:24)
[2017-02-01] VITALS: BP 136/61
--- NOTE | 2017-02-01 00:15 | NUR ---
VITAL SIGNS STABLE, NO SOB OR SIGN OF DISTRESS AT THIS TIME. CALL LIGHT WITHIN REACH. WILL CONTINUE TO MONITOR.
[2017-02-01] MEDS: ALBUTEROL SULFATE/IPRATROPIU 3 ML SOL IH SCH ×3 (01:05→12:20)
--- NOTE | 2017-02-01 02:15 | NUR ---
PATIENT SLEEPING, NO SOB OR SIGN OF DISTRESS AT THIS TIME, CALL LIGHT WITHIN REACH. WILL CONTINUE TO MONITOR.
[2017-02-01 04:00] VITALS: BP 150/85
--- NOTE | 2017-02-01 04:30 | NUR ---
PATIENT SLEEPING, NO SOB OR SIGN OF DISTRESS AT THIS TIME VITAL SIGNS STABLE, CALL LIGHT WITHIN REACH. WILL CONTINUE TO MONITOR.
--- NOTE | 2017-02-01 06:00 | NUR ---
BS CHECK 115 NO COVERAGE NEEDED.
[2017-02-01] MEDS: PANTOPRAZOLE 40 MG TABEC PO SCH (06:12)
[2017-02-01] MEDS: BLOOD GLUCOSE MONITORING 1 DEV DEV FS SCH ×3 (06:12→16:32)
--- NOTE | 2017-02-01 07:15 | NUR ---
ENDORSED PATIENT TO DAY SHIFT RN AT BEDSIDE, PATIENT IN STABLE CONDITION, RECEIVING BREATHING TX.
--- NOTE | 2017-02-01 07:16 | NUR ---
RECEIVED REPORT FROM MARQUEZ MILLER. PT IS AAO X4, PT HAS BRUISING IN BILATERAL UPPER EXTREMITIES, BRUISE ON RIGHT SIDE OF THE HEAD, IV ON RIGHT WRIST, PATENT AND INTACT INFUSING FLUID WELL. ON O2 2L NC, NO S/S OF RESPIRATORY DISTRESS OR DISCOMFORT NOTED, DISCUSSED PLAN OF CARE, PT VERBALIZED UNDERSTANDING, SAFETY/FALL PRECAUTIONS IN PLACE, CALL LIGHT WITHIN REACH, WILL CONTINUE TO MONITOR.
[2017-02-01 08:00] VITALS: BP 157/70
[2017-02-01 08:15] LABS: ANION GAP 9.4 (8-16); CALCIUM 8.2 mg/dL (8.5-10.1); CARBON DIOXIDE 33.9 mmol/L (21-32); CREATININE 0.5 mg/dL (0.6-1.3); POTASSIUM 3.3 mmol/L (3.5-5.1)
[2017-02-01] MEDS: FUROSEMIDE 40 MG TAB PO SCH (09:00)
[2017-02-01] MEDS ORDERED: LACTOBACILLUS RHAMNOSUS GG 1 EACH CAP PO SCH (09:00)
[2017-02-01 09:04] LABS: BASOPHILS # (AUTO) 0.1 K/uL (0.00-0.22); BASOPHILS % (AUTO) 2.1 % (0.0-2.0); EOSINOPHILS # (AUTO) 0.1 K/uL (0-0.4); EOSINOPHILS % (AUTO) 1.4 % (0.0-4.0); HEMATOCRIT 33.9 % (36-48); HEMOGLOBIN 11.1 g/dL (12.0-16.0); LYMPHOCYTES # (AUTO) 0.7 K/uL (2.5-16.5); LYMPHOCYTES % (AUTO) 13.4 % (20.5-51.1); MEAN CORPUSCULAR HEMOGLOBIN 29 pg (27-31); MEAN CORPUSCULAR HGB CONC 33 g/dL (33-37); MEAN CORPUSCULAR VOLUME 89 fL (80-94); MONOCYTES # (AUTO) 0.3 K/uL (0.8-1.0); MONOCYTES % (AUTO) 5.8 % (1.7-9.3); NEUTROPHILS # (AUTO) 3.8 K/uL (1.8-7.7); NEUTROPHILS % (AUTO) 77.3 % (42.2-75.2); PLATELET COUNT (AUTO) 194 K/uL (140-450); RED BLOOD CELL COUNT(AUTO) 3.79 MIL/uL (4.20-5.40); RED CELL DISTRIBUTION WIDTH 16.2 % (11.6-13.7)
[2017-02-01] MEDS: METOPROLOL 50 MG TAB PO SCH (09:15)
--- NOTE | 2017-02-01 09:15 | NUR ---
DUE MEDICATIONS GIVEN. PT TOLERATED WELL. CALL LIGHT WITHIN REACH. WILL CONTINUE TO MONITOR.
[2017-02-01] MEDS: methylPREDNISolone SS 40 MG/ML VIAL IVP SCH (09:16)
[2017-02-01] MEDS: MULTIVITAMIN/MINERALS 1 TAB PO SCH (09:16)
[2017-02-01] MEDS: CYCLOBENZAPRINE 10 MG TAB PO SCH (09:17)
[2017-02-01] MEDS: MORPHINE SULFATE 2 MG/ML SYR IVP PRN ×2 (09:18→15:11)
[2017-02-01] MEDS: DICLOFENAC 25 MG TABEC PO SCH (09:19)
[2017-02-01] MEDS ORDERED: POTASSIUM CHLORIDE 10 MEQ TABER PO SCH (10:17)
[2017-02-01] MEDS ORDERED: PRED10TA5 PO (10:20)
[2017-02-01] MEDS ORDERED: ROBAC PO (10:20)
[2017-02-01] MEDS ORDERED: PRED20TA5 PO (10:20)
--- NOTE | 2017-02-01 11:25 | NUR ---
PT IS RESTING ON BED WATCHING TV, ALL NEEDS MET AT THIS TIME, NO S/S OF RESPIRATORY DISTRESS OR DISCOMFORT NOTED, CALL LIGHT WITHIN REACH, WILL CONTINUE TO MONITOR.
--- NOTE | 2017-02-01 11:29 | NUR ---
P.T. NOTES D/C FROM P.T. AFTER TX TODAY; NURSING TO AMBU PATIENT AD ALICIA; O2 SAT ROOM AIR=92%
[2017-02-01 12:00] VITALS: BP 152/84
[2017-02-01] MEDS: INSULIN LISPRO SLIDING SCALE 100 UNITS/ML VIAL SUBQ PRN (12:11)
--- NOTE | 2017-02-01 13:11 | NUR ---
PT IS SLEEPING AT THIS TIME, NO S/S OF RESPIRATORY DISTRESS OR DISCOMFORT NOTED, CALL LIGHT WITHIN REACH, WILL CONTINUE TO MONITOR.
[2017-02-01 16:00] VITALS: BP 157/74
--- NOTE | 2017-02-01 16:00 | NUR ---
PATIENT SISTER KIMBERLYN CALLED AND DISAGREEING ON D/C, SHE SAID THAT PATIENT IS NOT STABLE TO D/C YET AND SHE CANNOT AMBULATE BY HERSELF AND TOO WEAK. SEEN BY PT TODAY AND CHECK NOTES THAT PATIENT IS COOPERATIVE AND AMBULATE WELL. SPOKE TO THE PATIENT THAT SHE REFUSED THE HOME HEALTH THAT THEY OFFERED HER, BUT RIGHT NOW SHE WANTS IT LONG NOT ON SNF. CALLED DR. Kevyn MANZANO AND ORDER TO GO HOME WITH HOME HEALTH. [facility] CALLED .
--- NOTE | 2017-02-01 16:17 | NUR ---
CALLED KIMBERLYN AND MADE AWARE OF THE SET UP, SHE WILL SNOW FENCE ERECTOR PATIENT IN 1 HOUR.
--- NOTE | 2017-02-01 17:00 | NUR ---
INSULIN COVERAGE NOT GIVEN, PT IS DISCHARGED AND WILL BE LEAVING SOON.
--- NOTE | 2017-02-01 17:45 | NUR ---
DISCHARGE INSTRUCTIONS AND PRESCRIPTIONS GIVEN, PT VERBALIZED UNDERSTANDING. REMOVED TELE, ID WRISTBAND, AND IV, CATHETER TIP INTACT, PROVIDED PT WITH NAME AND PHONE NUMBER OF HOME HEALTH. PT LEFT THE UNIT VIA WHEELCHAIR ACCOMPANIED BY SISTER. PT STABLE UPON DISCHARGE.
== END 2017-02-01 17:45 | disposition home or self-care (01) | DRG 191 ==
LOC: MED 19:26 → MTU 20:58
PROVIDERS: ADMIT Preventive Medicine Preventive Medicine/Occupational Environmental Medicine; ATTEND Preventive Medicine Preventive Medicine/Occupational Environmental Medicine
DX: J44.1 Chronic obstructive pulmonary disease with (acute) exacerbation (principal); K51.90 Ulcerative colitis, unspecified, without complications; Z68.1 Body mass index [BMI] 19.9 or less, adult; E44.0 Moderate protein-calorie malnutrition; E11.649 Type 2 diabetes mellitus with hypoglycemia without coma; R22.1 Localized swelling, mass and lump, neck; J32.9 Chronic sinusitis, unspecified; D64.9 Anemia, unspecified; E87.5 Hyperkalemia; I11.9 Hypertensive heart disease without heart failure; E83.52 Hypercalcemia; Z79.52 Long term (current) use of systemic steroids; Z79.84 Long term (current) use of oral hypoglycemic drugs; Z79.899 Other long term (current) drug therapy; Z88.8 Allergy status to other drugs, medicaments and biological substances; Z87.891 Personal history of nicotine dependence; Z83.3 Family history of diabetes mellitus
CPT/HCPCS: 36415; 70450; 71010; 72125; 80048; 80053; 81001; 82948; 83036; 83605; 83690; 83880; 84443; 84484; 85025; 85610; 85651; 86140; 87040; 87081; 87086; 92526; 93005; 93880; 94640; 96361; 96374; 97110; 97116; 97530; 99291; J1815; J1885; J2001; J2270; J2920; J3480; J7030; J7042; J7613; J7620; J7626; J7644; Q0092

== ENCOUNTER 2017-07-30 16:45 | Inpatient (IN) | payer OTHER ==
[~2017-07-30] VITALS: Ht 170.2 cm; Wt 36.3 kg
[~2017-07-30 16:45] MED LIST changes: +CEFU-18 PO; +DICL100T5 PO; -GLIP10TA12 PO; +LACT1CAP PO; -PRED10TA PO; +PRED10TA5 PO; +PRED20TA5 PO; +ROBAC PO; +[UNRECOGNIZED DRUG - CODE] PO; +[UNRECOGNIZED DRUG - CODE] PO; +[UNRECOGNIZED DRUG - CODE] PO; +[UNRECOGNIZED DRUG - CODE] PO; -[UNRECOGNIZED DRUG - CODE] PO; -[UNRECOGNIZED DRUG - CODE] PO
--- NOTE | 2017-07-30 16:52 | NUR ---
Patient BIBA ACLS, transferred to bed 4. Dr. Laurent and RN evaluating patient at bedside.
[2017-07-30] MEDS ORDERED: MAG SULF 2000 MG/WATER PREMIX 50 ML IV ONE (16:55)
[2017-07-30] MEDS ORDERED: IPRATROPIUM 0.02% 0.5 MG/2.5 ML NEBU INH ONE (16:55)
[2017-07-30] MEDS ORDERED: ALBUTEROL 0.083% 2.5 MG/3 ML NEBU INH ONE (16:55)
[2017-07-30] MEDS ORDERED: methylPREDNISolone SS 125 MG/2 ML VIAL IVP ONE (16:55)
[2017-07-30] MEDS ORDERED: LEVOFLOXACIN 750 MG/D5W PREMIX 150 ML IV ONE (16:55)
--- NOTE | 2017-07-30 16:55 | NUR ---
67 F BIBA FOR EVALUATION OF SOB X3 DAYS WITH DRY COUGH; PT HAS HX OF COPD, ON 2L ON NC; RR ARE EVEN AND TACHYPNIC; NAD; PATIENT DENIES ANY RECENT FEVERS; PT ALSO C/O DIFFICULTY EATING SOLID FOOD; PT REPORTS HX OF HIATAL HERNIA; DENIES N/V/D; AOX4; LUNGS CLEAR BL; HR EVEN AND REGULAR; PT DENIES ANY FEVER, CP, SOB, OR COUGH AT THIS TIME; PATIENT STATES PAIN OF 0/10 AT THIS TIME; VSS; PATIENT POSITIONED FOR COMFORT; HOB ELEVATED; BEDRAILS UP X2; BED DOWN. ER MD MADE AWARE OF PT STATUS. RT PAGED. WILL CONTINUE TO MONITOR
[2017-07-30 17:01] VITALS: BP 113/62
--- NOTE | 2017-07-30 17:29 | NUR ---
Breathing treatment administered at bedside by respiratory therapist.
[2017-07-30 17:37] LABS: HEMATOCRIT 36.6 % (36-48); HEMOGLOBIN 11.4 g/dL (12.0-16.0); MEAN CORPUSCULAR HEMOGLOBIN 27 pg (27-31); MEAN CORPUSCULAR HGB CONC 31 g/dL (33-37); MEAN CORPUSCULAR VOLUME 85 fL (80-94); PLATELET COUNT (AUTO) 521 K/uL (140-450); RED CELL DISTRIBUTION WIDTH 15.4 % (11.6-13.7); WHITE BLOOD COUNT (AUTO) 6.5 K/uL (4.8-10.8)
[2017-07-30 17:52] LABS: PROTHROMBIN TIME 11.1 secs (10.8-13.4)
[2017-07-30 17:56] LABS: ANION GAP 16.8 (8-16); CARBON DIOXIDE 22.7 mmol/L (21-32); POTASSIUM 3.5 mmol/L (3.5-5.1); TOTAL BILIRUBIN 0.5 mg/dL (0.0-1.0)
[2017-07-30 18:01] LABS: CREATININE 0.3 mg/dL (0.6-1.3); LYMPHOCYTES % (MANUAL) 21 % (20-46); MONOCYTES % (MANUAL) 4 % (5-12)
--- NOTE | 2017-07-30 18:02 | NUR ---
Patient resting with eyes closed in bed. Vital Signs within normal limits. Respirations even and unlabored.
--- NOTE | 2017-07-30 19:20 | NUR ---
Patient will be admitted to care of [facility]. Admited to Tele. Will go to room 119b. Belongings list completed. Report to Angeline ZAYAS.
--- NOTE | 2017-07-30 19:25 | NUR ---
RECEIVED FROM ER PER ROCIO AWAKE AND ALERT. NO SOB. DENIES PAIN AT THIS TIME. PT. WITH IVF SITE TO LAC PATENT AND GOOD BLOOD RETURN. PT. DX OF COPD EXACERBATION AND CHEST PAIN. TELEMETRY MONITORING. CALL LIGHT WITH IN REACH AND CARE PLANS FOR THE NIGHT DISCUSSED WITH HER. PT. ABLE TO WALK BY HERSELF. INDEPENDENT. WITH 02 AT 2LPM/NC WITH 02 SAT. NO WOUNDS NOTED. SKIN INTACT. TELEMETRY MONITORING. AFEBRILE.
[2017-07-30] MEDS: DEXT 5% /NACL 0.9% 1,000 ML IV SCH (20:10)
[2017-07-30] MEDS ORDERED: LORazepam 2 MG/ML VIAL IVP PRN (20:10)
[2017-07-30] MEDS ORDERED: CARISOPRODOL 350 MG TAB PO PRN (20:10)
[2017-07-30] MEDS ORDERED: ONDANSETRON 4 MG/2 ML VIAL IVP PRN (20:10)
[2017-07-30] MEDS ORDERED: LEVOFLOXACIN 500 MG/D5W PREMIX 100 ML IV SCH (20:15)
[2017-07-30] MEDS ORDERED: NON-FORMULARY ITEM (Budesonide/Formoterol Fumarate* (Symbicort 80-4.5 Mcg Inhaler*) 2 PUFF IH SCH (21:00)
[2017-07-30] MEDS: METOPROLOL 50 MG TAB PO SCH (21:00)
--- NOTE | 2017-07-30 21:09 | NUR ---
SISTER AT BEDSIDE. PT. ABLE TO VERBALIZE NEEDS WELL. ON 02 AT 2LPM/NC. 92 % 02 SAT. BREATHING TREATMENTS ON GOING.
--- NOTE | 2017-07-30 21:30 | NUR ---
PT. REFUSED TO TAKE METOPROLOL MEDICATION RT" NO, I AM NOT TAKING THAT BECAUSE THAT IS NOT MY MEDICINE" ALERT AND AWAKE. ORIENTED X 4. SISTER AT BEDSIDE STATING TOO THAT THE MEDICATION IS NOT HER SISTER"S. EXPLAINED PROS AND CONS OF IT. TELEMETRY MONITORING.
[2017-07-30] MEDS: MORPHINE SULFATE 2 MG/ML SYR IVP PRN (22:08)
[2017-07-31] VITALS: BP 127/57
[2017-07-31] MEDS: ALBUTEROL 0.083% 2.5 MG/3 ML NEBU IH SCH ×4 (00:04→19:17)
[2017-07-31] MEDS: IPRATROPIUM 0.02% 0.5 MG/2.5 ML NEBU IH SCH ×4 (00:04→19:17)
--- NOTE | 2017-07-31 00:12 | NUR ---
LABELED SPUTUM CUP LEFT AT BEDSIDE. INSTRUCTED PATIENT TO COUGH UP SPUTUM NTO CUP AND CALL THE NURSE. PATIENT STATED SHE DOES NOT HAVE COUGH OR PHLEGM
[2017-07-31 01:30] LABS: CREATINE KINASE MB 1.7 ng/mL (0-3.6)
--- NOTE | 2017-07-31 01:30 | NUR ---
TALKED TO RAIN MANZANO/MARKETING FINANCE MANAGER RE: TROPONIN OF PT. AT THIS TIME IS 0.304. " OK" NO FURTHER ORDERS GIVEN. "I WILL SEE HER IN THE MORNING. TELEMETRY MONITORING.
--- NOTE | 2017-07-31 02:15 | NUR ---
PT. SLEEPING WELL. NO RESTLESSNESS NOTED. NO SOB. ON AT 2LPM/NC. CALL LIGHT WITH IN REACH. BED ALARM ON.
[2017-07-31 02:44] LABS: APPEARANCE,URINE CLEAR (CLEAR); BILIRUBIN,URINE 1+ (NEGATIVE); BLOOD, URINE NEGATIVE (NEGATIVE); COLOR,URINE YELLOW (YELLOW); LEUKOCYTE ESTERASE ,URINE NEGATIVE (NEGATIVE); NITRITE, URINE NEGATIVE (NEGATIVE); PH,URINE 5.5 (5.0-9.0); UGLUCOSE NEGATIVE (NEGATIVE)
[2017-07-31 03:45] LABS: RBC,URINE 0-5 (RARE) /HPF (0-5); WBC,URINE 0-5 (RARE) /HPF (0-5)
[2017-07-31 04:26] VITALS: BP 140/69
--- NOTE | 2017-07-31 04:36 | NUR ---
PT. AWAKE AND ALERT AT THIS TIME RT TOK VITAL SIGNS. REQUESTED FOR PAIN RELIEVER RT C/O ESOPHAGEAL BURNING SENSATION. WILL MEDICATE REQUESTED. INFORMED ETL PROGRAMMER OF PT.S NEED TO HAVE MEDICATION RT UNAVAILABILITY IN UNIT.
[2017-07-31] MEDS: MORPHINE SULFATE 2 MG/ML SYR IVP PRN ×3 (04:47→18:10)
--- NOTE | 2017-07-31 04:50 | NUR ---
MEDICATED WITH MORPHINE 2 MG IVP REQUESTED. AWAKE AND ALERT. NO SOB. ON 02 AT 2LPM/NC. BILATERAL SEQUENTIALS IN PLACE.
[2017-07-31] MEDS: DEXT 5% /NACL 0.9% 1,000 ML IV SCH ×2 (06:10→12:15)
--- NOTE | 2017-07-31 07:00 | NUR ---
SLEPT WELL THIS SHIFT. MEDICATED WITH PAIN RELIEVER X 2 . NO SOB EPISODE. ABLE TO VERBALIZE NEEDS WELL. ABLE TO USE CALL LIGHT FOR HELP. TELEMETRY MONITORING. PT. INDEPENDENT AND CAN STAND BY HERSELF. A/O X 4. ROM X 4.
--- NOTE | 2017-07-31 07:03 | NUR ---
RECEIVED REPORT FROM NIGHT RN AT BEDSIDE. PT RESTING IN BED. AAOX4. NO S/S OF ACUTE DISTRESS. IV SITE OUT ON ASSESSMENT. TIP INTACT. RIGHT UPPER CHEST SHANNAN NOTED. PT DENIES PAIN. PLAN OF CARE DISCUSSED WITH PT. TELE BOX IN PLACE. CALL LIGHT WITHIN REACH. WILL CONTINUE TO MONITOR.
[2017-07-31 07:50] VITALS: BP 150/75
--- NOTE | 2017-07-31 08:43 | NUR ---
PATIENT HAS BEEN SCREENED AND CATEGORIZED HIGH NUTRITION RISK. PATIENT WILL BE SEEN WITHIN 1-2 DAYS OF ADMISSION. 07/31/17-08/01/[address]
[2017-07-31] MEDS ORDERED: BUDESONIDE 9 MG PO SCH (09:00)
[2017-07-31] MEDS: FUROSEMIDE 40 MG TAB PO SCH (09:00)
[2017-07-31] MEDS ORDERED: CYCLOBENZAPRINE HCL 15 MG PO SCH (09:00)
[2017-07-31] MEDS ORDERED: NON-FORMULARY ITEM (Tiotropium Bromide* (Spiriva Mdi*) 2 PUFF) INH SCH (09:00)
[2017-07-31] MEDS ORDERED: [UNRECOGNIZED DRUG - OTHER] PO SCH (09:00)
[2017-07-31] MEDS ORDERED: predniSONE 10 MG TAB PO SCH (09:00)
[2017-07-31] MEDS ORDERED: DICLOFENAC 25 MG TABEC PO SCH (09:00)
[2017-07-31 09:40] LABS: HEMOGLOBIN 11.8 g/dL (12.0-16.0); MEAN CORPUSCULAR HEMOGLOBIN 27 pg (27-31); MEAN CORPUSCULAR HGB CONC 32 g/dL (33-37); MEAN CORPUSCULAR VOLUME 85 fL (80-94); PLATELET COUNT (AUTO) 427 K/uL (140-450); RED BLOOD CELL COUNT(AUTO) 4.34 MIL/uL (4.20-5.40); RED CELL DISTRIBUTION WIDTH 15.8 % (11.6-13.7); WHITE BLOOD COUNT (AUTO) 5.1 K/uL (4.8-10.8)
[2017-07-31 09:44] LABS: CREATINE KINASE MB 2.7 ng/mL (0-3.6)
[2017-07-31 09:46] LABS: ANION GAP 11.3 (8-16); CARBON DIOXIDE 28.1 mmol/L (21-32); CREATININE 0.4 mg/dL (0.6-1.3); MAGNESIUM 1.8 mg/dL (1.8-2.4); PHOSPHORUS 2.8 mg/dL (2.5-4.9); POTASSIUM 3.4 mmol/L (3.5-5.1); TOTAL BILIRUBIN 0.3 mg/dL (0.0-1.0)
[2017-07-31] MEDS: METOPROLOL 50 MG TAB PO SCH ×2 (09:59→21:06)
[2017-07-31] MEDS: PANTOPRAZOLE 40 MG TABEC PO SCH (10:00)
[2017-07-31] MEDS: MULTIVITAMIN/MINERALS 1 TAB PO SCH (10:00)
--- NOTE | 2017-07-31 10:00 | NUR ---
AM MEDICATIONS GIVEN WITH EDUCATION. PT TOLERATED WELL. WILL CONTINUE TO MONITOR.
[2017-07-31 10:05] LABS: LYMPHOCYTES % (MANUAL) 13 % (20-46); MONOCYTES % (MANUAL) 5 % (5-12)
[2017-07-31] MEDS ORDERED: MORPHINE TAB ER 30 MG TABER PO PRN (10:10)
--- NOTE | 2017-07-31 10:45 | NUR ---
DR. PECK IN TO SEE PT.
--- NOTE | 2017-07-31 11:47 | NUR ---
PT RESTING IN BED. NO S/S OF ACUTE DISTRESS. PT STATES PAIN IS REDUCED. CALL LIGHT WITHIN REACH. SAFETY MEASURES ENSURED. WILL CONTINUE TO MONITOR.
[2017-07-31 12:00] VITALS: BP 132/71
[2017-07-31] MEDS ORDERED: FLUCONAZOLE 100 MG/NS PREMIX 50 ML IV SCH (12:00)
--- NOTE | 2017-07-31 13:32 | NUR ---
07/31/17 RD INITIAL ASSESSMENT COMPLETED PLEASE REFER TO NUTRITION ASSESSMENT UNDER CARE ACTIVITY FOR ESTIMATED NUTRITIONAL NEEDS. 1. WHEN MEDICALLY FEASIBLE, INITIATE PO DIET - REGULAR DIET 2. RD TO FOLLOW-UP 2-3 DAYS, HIGH RISK SAMANTHA HUTSON RD
--- NOTE | 2017-07-31 13:43 | NUR ---
FOLLOWED UP ON SPUTUM SAMPLE. PT SAID SHE DOESN'T HAVE ANY FLEM. PT IS AWAKE AND ALERT. ALSO PT REFUSED TO DO ABG. I EXPLAINED PURPOSE AND REASON WHY IT WAS ORDERED BUT PT STILL REFUSED. HHN TX GIVEN. WILL CONTINUE TO MONITOR.
--- NOTE | 2017-07-31 15:11 | NUR ---
PT SLEEPING IN BED. NO S/S OF ACUTE DISTRESS. CALL LIGHT WITHIN REACH. SAFETY MEASURES ENSURED. WILL CONTINUE TO MONITOR.
[2017-07-31 16:00] VITALS: BP 131/77
--- NOTE | 2017-07-31 19:17 | NUR ---
ENDORSED PLAN OF CARE TO NIGHT RN. PT REMAINS STABLE.
--- NOTE | 2017-07-31 19:30 | NUR ---
RECEIVED REPORT FROM DAY RN AT BEDSIDE, PATIENT IS AAO X4 ON O2 @2L VIA NC. NO SOB OR SIGN OF DISTRESS. IV TO RIGHT AC PATENT AND INTACT. SKIN INTACT. PATIENT DENIES PAIN, JUST STATED SOME DISCOMFORT IN HER STOMACH. DISCUSSED PLAN OF CARE WITH PATIENT, PT VERBALIZED UNDERSTANDING, SAFETY MEASURES CHECKED, CALL LIGHT WITHIN REACH. WILL CONTINUE TO MONITOR.
--- NOTE | 2017-07-31 19:53 | NUR ---
DR SWANSON CALLED, ORDERED LEVAQUIN 500MG IV DAILY, WILL F/U WITH ORDERS.
[2017-07-31 20:00] VITALS: BP 135/69
[2017-07-31] MEDS ORDERED: methylPREDNISolone SS 40 MG/ML VIAL IVP SCH (21:00)
[2017-07-31] MEDS: SIMVASTATIN 40 MG TAB PO SCH (21:06)
[2017-07-31] MEDS: POTASSIUM CHLORIDE 10 MEQ TABER PO SCH (21:06)
--- NOTE | 2017-07-31 21:09 | NUR ---
Kevyn CHA IN TO SEE PATIENT.
--- NOTE | 2017-07-31 21:18 | NUR ---
PM MEDS ADMINISTERED, MEDS CRUSHED AND MIXED WITH PUDDING PER PATIENT REQUEST. PATIENT STATED WHEN SHE EATS ANYTHING IT HURTS IN HER STERNAL AREA. PATIENT STATES SHE WAS NOT ABLE TO FINISH HER DINNER. CALL LIGHT WITHIN REACH. WILL CONTINUE TO MONITOR
[2017-07-31] MEDS ORDERED: LEVOFLOXACIN 500 MG/D5W PREMIX 100 ML IV SCH (22:00)
--- NOTE | 2017-07-31 22:31 | NUR ---
CALLED DR PECK, LET HIM KNOW DR MANZANO CLEARED PATIENT TO HAVE EGD TOMORROW. DR PECK STATED "OKAY AND KEEP THE PATIENT NPO AFTER MIDNIGHT" WILL F/U WITH ORDERS.
[2017-08-01] VITALS: BP 124/68
[2017-08-01] MEDS: MORPHINE SULFATE 2 MG/ML SYR IVP PRN ×3 (00:35→18:04)
--- NOTE | 2017-08-01 00:35 | NUR ---
VITAL SIGNS STABLE, NO SOB OR SIGN OF DISTRESS, CALL LIGHT WITHIN REACH. WILL CONTINUE TO MONITOR
[2017-08-01] MEDS: ALBUTEROL 0.083% 2.5 MG/3 ML NEBU IH SCH ×4 (01:24→19:00)
[2017-08-01] MEDS: IPRATROPIUM 0.02% 0.5 MG/2.5 ML NEBU IH SCH ×4 (01:24→19:00)
[2017-08-01] MEDS: DEXT 5% /NACL 0.9% 1,000 ML IV SCH ×2 (02:10→03:40)
--- NOTE | 2017-08-01 02:18 | NUR ---
PATIENT SLEEPING, NO SIGN OF DISTRESS, CALL LIGHT WITHIN REACH. WILL CONTINUE TO MONITOR
[2017-08-01 04:00] VITALS: BP 125/68
--- NOTE | 2017-08-01 04:13 | NUR ---
VITAL SIGNS STABLE, NO SOB OR SIGN OF DISTRESS, CALL LIGHT WITHIN REACH. WILL CONTINUE TO MONITOR.
[2017-08-01 06:15] LABS: BASOPHILS # (AUTO) 0.1 K/uL (0.00-0.22); BASOPHILS % (AUTO) 2.1 % (0.0-2.0); EOSINOPHILS # (AUTO) 0.1 K/uL (0-0.4); HEMATOCRIT 36.9 % (36-48); HEMOGLOBIN 11.6 g/dL (12.0-16.0); LYMPHOCYTES % (AUTO) 16.3 % (20.5-51.1); MEAN CORPUSCULAR HEMOGLOBIN 27 pg (27-31); MEAN CORPUSCULAR HGB CONC 31 g/dL (33-37); MEAN CORPUSCULAR VOLUME 86 fL (80-94); MONOCYTES # (AUTO) 0.5 K/uL (0.8-1.0); MONOCYTES % (AUTO) 8.6 % (1.7-9.3); NEUTROPHILS # (AUTO) 4.2 K/uL (1.8-7.7); PLATELET COUNT (AUTO) 435 K/uL (140-450); RED BLOOD CELL COUNT(AUTO) 4.29 MIL/uL (4.20-5.40); RED CELL DISTRIBUTION WIDTH 15.3 % (11.6-13.7); WHITE BLOOD COUNT (AUTO) 5.9 K/uL (4.8-10.8)
[2017-08-01 06:36] LABS: ANION GAP 8.7 (8-16); CARBON DIOXIDE 30.2 mmol/L (21-32); CREATININE 0.4 mg/dL (0.6-1.3)
[2017-08-01 06:56] LABS: POTASSIUM 2.9 mmol/L (3.5-5.1)
--- NOTE | 2017-08-01 07:25 | NUR ---
ENDORSED PATIENT TO DAY RN AT BEDSIDE, PATIENT IN STABLE CONDITION Addendum: 08/01/17 at 0731 by Laury Connolly RN ENDORSED CRITICAL LAB VALUE OF K+ 2.9, REPORTED TO Kevyn CHA NEW ORDERS GIVEN TO DAY RN.
--- NOTE | 2017-08-01 07:27 | NUR ---
RECEIVED REPORT FROM NIGHT NURSE. PT IS AWAKE AND ALERT, SHOWING NO SIGNS OF ACUTE DISTRESS. IV ACCESS PATENT AND ASYMPTOMATIC, BOWEL SOUNDS PRESENT ON ALL FOUR QUADRANT. BOWEL AND BLADDER CONTINENCE. ON 02 2L VIA [place]. PLAN OF CARE DISCUSSED, PT VERBALIZED UNDERSTANDING. BED ON LOW POSITION, BILATERAL HALF SIDE RAILS UP, CALL LIGHT WITHIN REACH. WILL CONTINUE TO MONITOR.
[2017-08-01] MEDS ORDERED: COMMUNICATION ORDER MC ONE (08:40)
[2017-08-01] MEDS: MULTIVITAMIN/MINERALS 1 TAB PO SCH (08:43)
[2017-08-01] MEDS: PANTOPRAZOLE 40 MG TABEC PO SCH (08:44)
[2017-08-01] MEDS: FUROSEMIDE 40 MG TAB PO SCH (08:44)
[2017-08-01] MEDS: LACTOBACILLUS RHAMNOSUS GG 1 EACH CAP PO SCH (08:44)
[2017-08-01] MEDS: POTASSIUM CHLORIDE 10 MEQ TABER PO SCH ×2 (08:55→21:00)
[2017-08-01] MEDS: FELODIPINE 2.5 MG PO SCH (08:56)
[2017-08-01] MEDS: METOPROLOL 50 MG TAB PO SCH ×2 (08:57→21:00)
[2017-08-01] MEDS ORDERED: POTASSIUM CHLORIDE 60 MEQ, LIDOCAINE 1% 25 MG in NACL 0.9% 500 ML IV SCH (09:00)
--- NOTE | 2017-08-01 09:30 | NUR ---
PT IS SITTING UP IN BED, WATCHING TV. SHOWING NO SIGNS OF ACUTE DISTRESS. BED ON LOW POSITION, BILATERAL HALF SIDE RAILS UP, BED ON LOW POSITION, CALL LIGHT WITHIN REACH. WILL CONTINUE TO MONITOR.
[2017-08-01] MEDS ORDERED: fentaNYL 0.05 MG/ML VIAL ONE (10:29)
[2017-08-01] MEDS ORDERED: MIDAZOLAM 2 MG/2 ML VIAL ONE ×2 (10:29)
[2017-08-01] MEDS: POTASSIUM CHLORIDE 60 MEQ, LIDOCAINE 1% 25 MG in NACL 0.9% 500 ML IV SCH ×2 (10:34→21:34)
--- NOTE | 2017-08-01 11:15 | NUR ---
PT AWAKE AND ALERT, GAVE BEDSIDE REPORT TO OR NURSE. TAKEN TO OR VIA GURNEY.
[2017-08-01] MEDS ORDERED: diphenhydrAMINE 50 MG/ML VIAL ONE (11:55)
--- NOTE | 2017-08-01 12:56 | NUR ---
PT BACK FROM OR. RECEIVED REPORT FROM OR NURSE. PT IS GROGGY, SHOWING NO SIGNS OF ACUTE DISTRESS. ON 2L VIA NC. BED ON LOW POSITION, BED ALARM ACTIVATED, CALL LIGHT WITHIN REACH. WILL CONTINUE TO MONITOR.
--- NOTE | 2017-08-01 13:00 | NUR ---
PT AWAKE AND ALERT. REFUSED HHN TX. RN AWARE NO SOB OR DISTRESS NOTED. WILL CONTINUE TO MONITOR.
[2017-08-01] MEDS ORDERED: diphenhydrAMINE 50 MG/ML VIAL IVP ONE (13:10)
[2017-08-01] MEDS ORDERED: MIDAZOLAM 2 MG/2 ML VIAL IVP ONE (13:10)
[2017-08-01] MEDS ORDERED: fentaNYL 0.05 MG/ML VIAL IVP ONE (13:10)
[2017-08-01 13:43] VITALS: BP 106/69
--- NOTE | 2017-08-01 14:51 | NUR ---
PATIENT SLEEPING, NO SIGNS OF ACUTE DISTRESS. BED IN LOW POSITION WITH BILATERAL HALF SIDE RAILS UP, CALL LIGHT WITHIN REACH, BED ALARM ON, WILL CONTINUE TO MONITOR.
[2017-08-01 16:00] VITALS: BP 127/72
--- NOTE | 2017-08-01 16:37 | NUR ---
PT SLEEPING, NO SIGNS OF ACUTE DISTRESS. BED IN LOW POSITION, BED ALARM ON, BILATERAL HALF SIDE RAILS UP, CALL LIGHT WITHIN REACH. WILL CONTINUE TO MONITOR.
--- NOTE | 2017-08-01 18:04 | NUR ---
ADMINISTERED PAIN MEDICATION, PRN ORDERED. NO SIGNS OF ACUTE DISTRESS BED IN LOW POSITION, BILATERAL HALF SIDE RAILS UP, CALL LIGHT WITHIN REACH. WILL CONTINUE TO MONITOR.
--- NOTE | 2017-08-01 19:11 | NUR ---
PT REFUSED HHN, SHE SAID THAT WILL CALL IF NEEDED
--- NOTE | 2017-08-01 19:25 | NUR ---
PT AWAKE AND ALERT, NO SIGNS OF ACUTE DISTRESS. ENDORSED TO RATINGS ANALYST NURSE FOR CONTINUITY OF CARE. BED IN LOW POSITION, BILATERAL HALF SIDE RAILS UP, CALL LIGHT WITHIN REACH, BED ALARM ON.
--- NOTE | 2017-08-01 19:30 | NUR ---
RECEIVED REPORT FROM DAY RN AT BEDSIDE, PATIENT IS AAO X4 ON O2 @2L VIA NC. NO SOB OR SIGN OF DISTRESS. IV TO RIGHT AC PATENT AND INTACT. SKIN INTACT. PATIENT DENIES PAIN. DISCUSSED PLAN OF CARE WITH PATIENT, PT VERBALIZED UNDERSTANDING, SAFETY MEASURES CHECKED, CALL LIGHT WITHIN REACH. WILL CONTINUE TO MONITOR.
[2017-08-01 20:00] VITALS: BP 113/79
--- NOTE | 2017-08-01 20:45 | NUR ---
DR CHENG IN TO SEE PT WITH NEW ORDER BUT CANT ORDER IT DUE TO MEDICATION IS NOT IN THE LIST OF MEDS IN THE [facility]. [facility] WAS CALLED AND ASKED ABOUT THIS MEDICATION BUT WE DONT HAVE IT. PHARMACY ALSO TALKED TO DR CHENG. HEAD OF CONSERVATION WAS NOTIFIED AND STATED HE WILL CALL THE DIESEL SCOOP OPERATOR PHARMACIST.
--- NOTE | 2017-08-01 20:55 | NUR ---
RECEIVED CALL FROM STARR THE DIRECTOR FACILITIES MAINTENANCE PHARMACY AND TOLD HIM ABOUT THE MEDICATION, HE SAID HE WILL CALL MEAGAN THE CONDUCTOR AND ENGINEER.
[2017-08-01] MEDS: SIMVASTATIN 40 MG TAB PO SCH (21:00)
[2017-08-01] MEDS: SIMETHICONE 40 MG/0.6 ML PO SCH (21:00)
--- NOTE | 2017-08-01 21:00 | NUR ---
STARR CALLED BACK AND TALK TO THE CUFF TURNER MACHINE OPERATOR AND THEY WILL TAKE CARE OF IT IN THE MORNING.
[2017-08-01] MEDS ORDERED: LEVOFLOXACIN 250 MG/D5 PREMIX 50 ML IV SCH (22:00)
--- NOTE | 2017-08-01 22:00 | NUR ---
PATIENT REFUSED ALL PO MED, STATED SHE CANT SWALLOW THEM RIGHT NOW, IT HURTS HER TOO MUCH. WILL CONTINUE TO MONITOR
[2017-08-02] VITALS: BP 124/74
--- NOTE | 2017-08-02 00:15 | NUR ---
VITAL SIGNS STABLE, NO SOB OR SIGN OF DISTRESS, CALL LIGHT WITHIN REACH. WILL CONTINUE TO MONITOR
[2017-08-02] MEDS: MORPHINE SULFATE 2 MG/ML SYR IVP PRN ×3 (00:49→17:27)
[2017-08-02] MEDS: ALBUTEROL 0.083% 2.5 MG/3 ML NEBU IH SCH ×4 (01:00→19:10)
[2017-08-02] MEDS: IPRATROPIUM 0.02% 0.5 MG/2.5 ML NEBU IH SCH ×4 (01:00→19:10)
--- NOTE | 2017-08-02 02:20 | NUR ---
PT SLEEPING, NO DISTRESS, WILL CONTINUE TO MONITOR
[2017-08-02 04:00] VITALS: BP 117/73
--- NOTE | 2017-08-02 04:20 | NUR ---
VITAL SIGNS STABLE, NO SIGN OF DISTRESS, WILL CONTINUE TO MONITOR
--- NOTE | 2017-08-02 07:33 | NUR ---
ENDORSED PATIENT TO DAY RN AT BEDSIDE, PATIENT IN STABLE CONDITION
--- NOTE | 2017-08-02 07:34 | NUR ---
RECEIVED BEDSIDE REPORT FROM DENTURE WAXER RN. PT AWAKE AND ALERT, NO SIGNS OF ACUTE DISTRESS. BOWEL SOUNDS ACTIVE IN ALL 4 QUADRANTS. SKIN INTACT. AMBULATORY WITH STANDBY ASSIST. IV PATENT AND ASYMPTOMATIC. PATIENT DENIES PAIN AT THIS TIME. RE-ORIENTED TO HOSPITAL AND TO UNIT, PT VERBALIZED UNDERSTANDING. BED IN LOW POSITION WITH BILATERAL HALF SIDE RAILS UP, CALL LIGHT WITHIN REACH. WILL CONTINUE TO MONITOR.
[2017-08-02 08:00] VITALS: BP 119/76
[2017-08-02] MEDS: PANTOPRAZOLE 40 MG TABEC PO SCH (08:59)
[2017-08-02] MEDS: FUROSEMIDE 40 MG TAB PO SCH (09:00)
[2017-08-02] MEDS: POTASSIUM CHLORIDE 10 MEQ TABER PO SCH ×2 (09:00→21:35)
[2017-08-02] MEDS: METOPROLOL 50 MG TAB PO SCH ×2 (09:00→21:35)
[2017-08-02] MEDS: MULTIVITAMIN/MINERALS 1 TAB PO SCH (09:01)
[2017-08-02] MEDS: FELODIPINE 2.5 MG PO SCH (09:02)
[2017-08-02] MEDS: LACTOBACILLUS RHAMNOSUS GG 1 EACH CAP PO SCH (09:03)
[2017-08-02 09:04] LABS: HEMATOCRIT 38.2 % (36-48); HEMOGLOBIN 12.3 g/dL (12.0-16.0); MEAN CORPUSCULAR HEMOGLOBIN 27 pg (27-31); MEAN CORPUSCULAR HGB CONC 32 g/dL (33-37); MEAN CORPUSCULAR VOLUME 84 fL (80-94); PLATELET COUNT (AUTO) 469 K/uL (140-450); RED BLOOD CELL COUNT(AUTO) 4.55 MIL/uL (4.20-5.40); RED CELL DISTRIBUTION WIDTH 15.2 % (11.6-13.7); WHITE BLOOD COUNT (AUTO) 4.9 K/uL (4.8-10.8)
[2017-08-02] MEDS: SIMETHICONE 40 MG/0.6 ML PO SCH ×4 (09:04→21:00)
[2017-08-02 09:19] LABS: ANION GAP 7.8 (8-16); CARBON DIOXIDE 28.8 mmol/L (21-32); CREATININE 0.4 mg/dL (0.6-1.3); POTASSIUM 3.6 mmol/L (3.5-5.1)
--- NOTE | 2017-08-02 09:20 | NUR ---
PT IN BED WATCHING TV. SHOWING NO SIGNS OF ACUTE DISTRESS. BED IN LOW POSITION. BILATERAL HALF SIDE RAILS UP. CALL LIGHT WITHIN REACH. WILL CONTINUE TO MONITOR.
[2017-08-02 10:11] LABS: LYMPHOCYTES % (MANUAL) 20 % (20-46); MONOCYTES % (MANUAL) 6 % (5-12)
[2017-08-02] MEDS: DEXT 5% /NACL 0.9% 1,000 ML IV SCH (11:50)
--- NOTE | 2017-08-02 11:55 | NUR ---
PAGED DR. MANZANO, Niall. PT STATES SHE HAS DIARRHEA X4 TODAY. WILL WAIT FOR CALL BACK. WILL CONTINUE TO MONITOR.
[2017-08-02 12:00] VITALS: BP 98/51
--- NOTE | 2017-08-02 12:10 | NUR ---
PT SITTING UP IN BED, EATING LUNCH. SHOWING NO SIGNS OF ACUTE DISTRESS. BED IN LOW POSITION. BILATERAL HALF SIDE RAILS UP. CALL LIGHT WITHIN REACH. WILL CONTINUE TO MONITOR.
[2017-08-02] MEDS: HYDROcodone/APAP 5/325 MG 1 TAB TAB PO PRN (12:28)
--- NOTE | 2017-08-02 13:45 | NUR ---
08/02/17 RD FOLLOW-UP ASSESSMENT COMPLETED PLEASE REFER TO NUTRITION ASSESSMENT UNDER CARE ACTIVITY FOR ESTIMATED NUTRITIONAL NEEDS. 1. CONTINUE FULL LIQUID DIET, ADVANCE TOLERATED TO REGULAR DIET 2. RD TO FOLLOW-UP 3-5 DAYS, MODERATE RISK SAMANTHA HUTSON RD
[2017-08-02] MEDS ORDERED: NACL 0.9% IV SCH ×2 (14:00→15:00)
[2017-08-02] MEDS ORDERED: [UNRECOGNIZED DRUG - OTHER] IV SCH ×2 (14:00→15:00)
--- NOTE | 2017-08-02 15:00 | NUR ---
IV LINE ACCIDENTALLY PULLED OUT BY PT. WILL RE START A NEW IV ACCESS SITE.
--- NOTE | 2017-08-02 15:30 | NUR ---
NEW IV ACCESS STARTED BY SONYA CHARGE NURSE, ON RIGHT FOREARM 22G. LINE IS ASYMPTOMATIC AND PATENT. WILL CONTINUE TO MONITOR.
[2017-08-02 16:00] VITALS: BP 112/68
--- NOTE | 2017-08-02 17:10 | NUR ---
PT IS RESTING IN BED, SHOWING NO SIGNS OF ACUTE DISTRESS. BED IN LOW POSITION. BILATERAL HALF SIDE RAILS UP. CALL LIGHT WITHIN REACH. WILL CONTINUE TO MONITOR.
--- NOTE | 2017-08-02 18:44 | NUR ---
PAGED DR MANZANO, Y. AGAIN, NATACHA WAS ON UNIT EARLIER, DIDN'T SEE HIM. WILL CONTINUE TO MONITOR.
--- NOTE | 2017-08-02 19:08 | NUR ---
SPOKE WITH DR MANZANO, ORDERED C-DIFF TOXIN X3. PATIENT POSSIBLY TO TRANSFER TO [facility].
--- NOTE | 2017-08-02 19:45 | NUR ---
ENDORSED PT TO NIGHT NURSE. PT IN STABLE CONDITION.
--- NOTE | 2017-08-02 19:46 | NUR ---
RECEIVED REPORT FROM AM NURSE. PT RESTING IN BED, AOX4, AMBULATORY, ABLE TO VERBALIZE NEEDS. PT DENIES CHEST PAIN, SOB OR S/S OF ACUTE DISTRESS. HORTICULTURE INSTRUCTOR IN PLACE. O2 2L NC ON. SCDs ENSURED. IV ACCESS ASYMPTOMATIC, PATENT AND INTACT. IVF INFUSING WELL. DISCUSSED AND REVIEWED PLAN OF CARE WITH PT. PT VERBALIZED UNDERSTANDING. ALL NEEDS MET. SAFETY MEASURES ENSURED. CALL LIGHT WITHIN REACH. WILL CONTINUE TO MONITOR.
[2017-08-02 20:00] VITALS: BP 113/63
--- NOTE | 2017-08-02 20:45 | NUR ---
SPOKE TO [facility] BED CONTROL IN [facility], NO BED AT THIS TIME. Dr. Turner aware Addendum: 08/02/17 at 2048 by Danielle Conklin CM Spoke to Nataliya dobbs at 1700 about tele bed to transfer and she said no tele bed available, no chemo nurse available shawn
[2017-08-02] MEDS: SIMVASTATIN 40 MG TAB PO SCH (21:34)
--- NOTE | 2017-08-02 21:41 | NUR ---
PT REFUSED DUE MED MYLICON DESPITE EDUCATION, PT STATED "I DON'T NEED THAT RIGHT NOW." ADMINISTERED REMAINING DUE MEDS WITH EDUCATION. PT VERBALIZED UNDERSTANDING, TOLERATED MEDS WELL. ALL NEEDS MET. SAFETY MEASURES ENSURED. CALL LIGHT WITHIN REACH. WILL CONTINUE TO MONITOR.
[2017-08-03] VITALS: BP 104/62
[2017-08-03] MEDS: MORPHINE SULFATE 2 MG/ML SYR IVP PRN ×3 (00:06→17:32)
--- NOTE | 2017-08-03 00:12 | NUR ---
PT C/O PAIN. SEE PAIN ASSESSMENT. ADMINISTERED MORPHINE IVP PRN WITH EDUCATION ORDERED. PT VERBALIZED UNDERSTANDING, TOLERATED MEDS WELL. ALL NEEDS MET. SAFETY MEASURES ENSURED. CALL LIGHT WITHIN REACH. WILL CONTINUE TO MONITOR.
[2017-08-03] MEDS: ALBUTEROL 0.083% 2.5 MG/3 ML NEBU IH SCH ×3 (01:00→18:59)
[2017-08-03] MEDS: IPRATROPIUM 0.02% 0.5 MG/2.5 ML NEBU IH SCH ×3 (01:00→18:59)
--- NOTE | 2017-08-03 02:01 | NUR ---
PT SLEEPING COMFORTABLY, AROUSABLE. NO S/S OF ACUTE DISTRESS. ALL NEEDS MET. IVF INFUSING WELL. SAFETY MEASURES ENSURED. CALL LIGHT WITHIN REACH. WILL CONTINUE TO MONITOR.
--- NOTE | 2017-08-03 03:58 | NUR ---
PT SLEEPING COMFORTABLY, AROUSABLE. NO S/S OF ACUTE DISTRESS. PT SEEN WITH O2 2L NC AT BEDSIDE. PT REFUSED O2 2L NC DESPITE EDUCATION. SPO2 94% AT ROOM AIR, RR 18 UNLABORED. PT DENIES SOB, CONDITION STABLE. ALL NEEDS MET. IVF INFUSING WELL. SAFETY MEASURES ENSURED. CALL LIGHT WITHIN REACH. WILL CONTINUE TO MONITOR.
[2017-08-03 04:00] VITALS: BP 114/58
[2017-08-03] MEDS: SIMETHICONE 40 MG/0.6 ML PO SCH (07:01)
--- NOTE | 2017-08-03 07:02 | NUR ---
PT HAS REFUSED HER ABG FOR THE MORNING
--- NOTE | 2017-08-03 07:30 | NUR ---
ENDORSED PLAN OF CARE TO AM NURSE. CONDITION STABLE.
--- NOTE | 2017-08-03 07:30 | NUR ---
RECEIVED PT FROM ELECTRICAL CONTROLS DESIGNER RN, PT AOX4, ON O2 NC 2L/MIN, NO SOB, PT ABLE TO AMBULATE TO BATHROOM, IV SITE INTACT AND PATENT. NO C/O PAIN AT THIS TIME. POC EXPLAINED TO PT, PT VERBALIZED UNDERSTANDING, VITALS STABLE AT THIS TIME.WILL CONTINUE TO MONITOR PT.
[2017-08-03 08:00] VITALS: BP 106/61
[2017-08-03] MEDS: METOPROLOL 50 MG TAB PO SCH ×2 (08:30→21:19)
[2017-08-03] MEDS: MULTIVITAMIN/MINERALS 1 TAB PO SCH (08:31)
[2017-08-03] MEDS: LACTOBACILLUS RHAMNOSUS GG 1 EACH CAP PO SCH (08:31)
[2017-08-03] MEDS: POTASSIUM CHLORIDE 10 MEQ TABER PO SCH ×2 (08:31→21:21)
[2017-08-03] MEDS: FELODIPINE 2.5 MG PO SCH (08:32)
[2017-08-03] MEDS: PANTOPRAZOLE 40 MG TABEC PO SCH (08:32)
[2017-08-03] MEDS: FUROSEMIDE 40 MG TAB PO SCH (09:00)
--- NOTE | 2017-08-03 09:00 | NUR ---
PT REFUSED LASIX 40 MG , PT STATED SHE DOES NOT WANT TO GO BATHROOM FREQUENTLY, IT IS TIRED TO GO BATHROOM.
--- NOTE | 2017-08-03 11:42 | NUR ---
SPOKE WITH [facility] REGARDING TRANSFER PATIENT THEY HAVE ALL PATIENT'S INFORMATION BUT THERE IS NO BED AVAILABLE AT THIS TIME.
[2017-08-03] MEDS ORDERED: SIMETHICONE 80 MG TAB.CHEW PO SCH (11:44)
--- NOTE | 2017-08-03 11:55 | NUR ---
LUNCH TRAY SERVED.
[2017-08-03 12:00] VITALS: BP 118/59
[2017-08-03] MEDS: DEXT 5% /NACL 0.9% 1,000 ML IV SCH (12:10)
--- NOTE | 2017-08-03 13:15 | NUR ---
ASSISTED PT TO BATHROOM, PT HAD LIQUID STOOL, SEND SPECIMEN TO LAB FOR C-DIFF CHECK
[2017-08-03] MEDS: HYDROcodone/APAP 5/325 MG 1 TAB TAB PO PRN ×2 (13:18→21:20)
[2017-08-03 16:00] VITALS: BP 108/60
--- NOTE | 2017-08-03 16:10 | NUR ---
PT RESTING IN BED, NO S/S OF RESPIRATORY DISTRESS NOTED. VITALS TAKEN, IN NORMAL RANGE.
--- NOTE | 2017-08-03 17:15 | NUR ---
PT'S SISTER AT BEDSIDE.
[2017-08-03] MEDS: SIMETHICONE 80 MG TAB.CHEW PO SCH ×2 (17:31→21:00)
--- NOTE | 2017-08-03 19:30 | NUR ---
RECEIVED REPORT FROM AM NURSE. PT RESTING IN BED, AOX4, AMBULATORY, ABLE TO VERBALIZE NEEDS. PT DENIES CHEST PAIN, SOB OR S/S OF ACUTE DISTRESS. SALES OFFICE COORDINATOR IN PLACE. O2 2L NC ON. SCDs ENSURED. IV ACCESS ASYMPTOMATIC, PATENT AND INTACT. IVF INFUSING WELL. DISCUSSED AND REVIEWED PLAN OF CARE WITH PT. PT VERBALIZED UNDERSTANDING. ALL NEEDS MET. SAFETY MEASURES ENSURED. CALL LIGHT WITHIN REACH. WILL CONTINUE TO MONITOR.
--- NOTE | 2017-08-03 19:36 | NUR ---
RECEIVED REPORT FROM DAY NURSE. PT IS IN STABLE CONDITION. NO S/S OF DISTRESS NOTED. PT IS AA0X4, PT IS ON 2L 02 VIA NC, PT HAS IV TO R FA 20 G, INFUSING WELL, DRY AND INTACT. PT SKIN IS IN TACT. INITIAL ASSESSMENT COMPLETED, PLAN OF CARE DISCUSSED WITH PT. PT VERBALIZED UNDERSTANDING. ALL SAFETY PRECAUTIONS MET, CALL LIGHT WITHIN REACH, WILL CONTINUE TO MONITOR. Addendum: 08/04/17 at 2301 by Indiana Espinoza RN WRONG DATE, THIS IS FOR 08/04/17
[2017-08-03 20:00] VITALS: BP 123/68
[2017-08-03] MEDS: SIMVASTATIN 40 MG TAB PO SCH (21:20)
--- NOTE | 2017-08-03 21:23 | NUR ---
PT REFUSED DUE MED MYLICON DESPITE EDUCATION, PT STATED "HOLD THAT, I DON'T NEED THAT RIGHT NOW." ADMINISTERED REMAINING DUE MEDS WITH EDUCATION. PT VERBALIZED UNDERSTANDING. PT TOLERATED WELL. ALL NEEDS MET. SAFETY MEASURES ENSURED. CALL LIGHT WITHIN REACH. WILL CONTINUE TO MONITOR. Addendum: 08/03/17 at 2341 by Satish Ramirez RN PT C/O PAIN. SEE PAIN ASSESSMENT. ADMINISTERED NORCO PO PRN ORDERED. PT TOLERATED WELL.
--- NOTE | 2017-08-03 23:13 | NUR ---
PT RESTING COMFORTABLY, SPO2 97% AT O2 2L NC, NO SOB OR S/S OF ACUTE DISTRESS. ALL NEEDS MET. IVF INFUSING WELL. SAFETY MEASURES ENSURED. CALL LIGHT WITHIN REACH.
[2017-08-04] VITALS: BP 107/58
[2017-08-04] MEDS: HYDROcodone/APAP 5/325 MG 1 TAB TAB PO PRN ×2 (01:19→09:33)
--- NOTE | 2017-08-04 01:19 | NUR ---
PT C/O PAIN. SEE PAIN ASSESSMENT. ADMINISTERED PAIN MED ORDERED. PT TOLERATED WELL. ALL NEEDS MET. SAFETY MEASURES ENSURED. CALL LIGHT WITHIN REACH. WILL CONTINUE TO MONITOR.
[2017-08-04] MEDS: ALBUTEROL 0.083% 2.5 MG/3 ML NEBU IH SCH ×4 (02:09→18:59)
[2017-08-04] MEDS: IPRATROPIUM 0.02% 0.5 MG/2.5 ML NEBU IH SCH ×4 (02:09→18:59)
[2017-08-04 04:00] VITALS: BP 135/60
[2017-08-04] MEDS: MORPHINE SULFATE 2 MG/ML SYR IVP PRN ×2 (05:00→20:07)
[2017-08-04] MEDS: SIMETHICONE 80 MG TAB.CHEW PO SCH ×4 (06:49→20:15)
--- NOTE | 2017-08-04 07:15 | NUR ---
ENDORSED PLAN OF CARE TO AM NURSE. CONDITION STABLE.
--- NOTE | 2017-08-04 07:17 | NUR ---
RECEIVED PATIENT REPORT AT BEDSIDE FROM NIGHT NURSE. PATIENT IS AAOX4 AND SHOWS NO S/S OF ACUTE DISTRESS ON O2 @ 2L NC. PATIENT STATES 6/10 LOWER ABD PAIN AND ESOPHAGEAL PAIN. IV NOTED ON THE R FA WITH IVF'S INFUSING WELL. ST ON TELE MONITOR AND ASYMPTOMATIC. SKIN IS INTACT. PATIENT IS AWARE OF POC FOR TODAY AND VERBALIZED UNDERSTANDING. THE BED IS LOWERED WITH CALL LIGHT WITHIN REACH. WILL CONTINUE TO MONITOR.
[2017-08-04 07:33] LABS: BASOPHILS # (AUTO) 0.2 K/uL (0.00-0.22); BASOPHILS % (AUTO) 2.9 % (0.0-2.0); EOSINOPHILS % (AUTO) 0.7 % (0.0-4.0); HEMOGLOBIN 10.9 g/dL (12.0-16.0); LYMPHOCYTES # (AUTO) 1.5 K/uL (2.5-16.5); LYMPHOCYTES % (AUTO) 25.1 % (20.5-51.1); MEAN CORPUSCULAR HEMOGLOBIN 26 pg (27-31); MEAN CORPUSCULAR HGB CONC 31 g/dL (33-37); MEAN CORPUSCULAR VOLUME 85 fL (80-94); MONOCYTES # (AUTO) 0.6 K/uL (0.8-1.0); MONOCYTES % (AUTO) 10.5 % (1.7-9.3); NEUTROPHILS # (AUTO) 3.6 K/uL (1.8-7.7); NEUTROPHILS % (AUTO) 60.8 % (42.2-75.2); PLATELET COUNT (AUTO) 518 K/uL (140-450); RED BLOOD CELL COUNT(AUTO) 4.15 MIL/uL (4.20-5.40); RED CELL DISTRIBUTION WIDTH 15.4 % (11.6-13.7); WHITE BLOOD COUNT (AUTO) 5.9 K/uL (4.8-10.8)
[2017-08-04 07:43] LABS: ANION GAP 9.4 (8-16); CARBON DIOXIDE 28.3 mmol/L (21-32); POTASSIUM 3.7 mmol/L (3.5-5.1)
[2017-08-04 07:47] LABS: CREATININE 0.3 mg/dL (0.6-1.3)
[2017-08-04 08:00] VITALS: BP 135/63
[2017-08-04] MEDS: POTASSIUM CHLORIDE 10 MEQ TABER PO SCH ×2 (09:29→20:12)
[2017-08-04] MEDS: LACTOBACILLUS RHAMNOSUS GG 1 EACH CAP PO SCH (09:29)
[2017-08-04] MEDS: FUROSEMIDE 40 MG TAB PO SCH (09:30)
--- NOTE | 2017-08-04 09:30 | NUR ---
ADMINISTERED SCHEDULED MEDICATIONS ONE AT A TIME. PATIENT TOLERATED ACTIVITY WELL. PATIENT STATED PAIN OF 6/10 GAVE NORCO 5/325 MG PO. WILL REASSESS PAIN IN ONE HOUR.
[2017-08-04] MEDS: FELODIPINE 2.5 MG PO SCH (09:31)
[2017-08-04] MEDS: METOPROLOL 50 MG TAB PO SCH ×2 (09:31→20:15)
[2017-08-04] MEDS: PANTOPRAZOLE 40 MG TABEC PO SCH (09:31)
[2017-08-04] MEDS: MULTIVITAMIN/MINERALS 1 TAB PO SCH (09:32)
--- NOTE | 2017-08-04 10:30 | NUR ---
PATIENT STATED PAIN LEVEL IS THE SAME. PATIENT SAYS " I HAVE HAD CHRONIC PAIN SINCE THE . I'VE LIVED WITH IT MY WHOLE LIFE." PATIENT WAS ASKED IF SHE NEEDED A STRONGER PAIN MEDICATION. PATIENT REFUSED AND SAID SHE WOULD LET HCP KNOW IF SHE DECIDES TO HAVE A STRONGER PAIN MEDICATIONS. PATIENT STATED THAT SHE DID NOT WAS TO TAKE MORPHINE AND ONLY NORCO SHE IS OKAY WITH TAKING. WILL CONTINUE TO MONITOR.
--- NOTE | 2017-08-04 11:30 | NUR ---
PATIENT REFUSED MEDICATION. Addendum: 08/04/17 at 1215 by Sveta Burleson RN PATIENT REFUSED MYLICON [address] MANZANO WAS NOTIFIED. NO NEW ORDERS.
[2017-08-04 12:00] VITALS: BP 102/51
[2017-08-04] MEDS: DEXT 5% /NACL 0.9% 1,000 ML IV SCH (12:10)
--- NOTE | 2017-08-04 12:20 | NUR ---
PATIENT IS SITTING AT THE SIDE OF THE BED AND IS EATING LUNCH HOWEVER SHE STATES SHE CANNOT EAT TOMATO SOUP. [facility] WAS CALLED AND LEFT MESSAGE FOR AN ALTERNATIVE SOUP.
[2017-08-04] MEDS ORDERED: HYDROcodone/APAP 10/325 MG 1 TAB TAB PO PRN (13:25)
--- NOTE | 2017-08-04 13:34 | NUR ---
PATIENT C/O 8/10 LOWER ABD PAIN BUT DOES NOT WANT MORPHINE. PAGED DR MANZANO AND ORDERED NORCO 10/[address] ORDERS.
--- NOTE | 2017-08-04 14:07 | NUR ---
ADMINISTERED NORCO 10/325 MG HARLEY FOR LOWER ABD PAIN 06/27 WILL REASSESS IN ONE HR.
--- NOTE | 2017-08-04 15:05 | NUR ---
PATIENT STATES HER PAIN IS THE SAME AROUND 6-8 LOWER ABD PAIN AND DOES NOT CHANGE MUCH. PATIENT STATED SHE IS DOING WELL WITH PAIN MEDICATION AND WILL CALL WHEN SHE NEEDS PAIN MEDICATION. THE BED IS LOWERED WITH CALL LIGHT WITHIN REACH.
[2017-08-04 16:00] VITALS: BP 102/55
--- NOTE | 2017-08-04 17:30 | NUR ---
PATIENT IS SHOWS NO S/S OF ACUTE DISTRESS ON O2 @ 2L NC. THE BED IS LOWERED WITH CALL LIGHT WITHIN REACH. ALL NEEDS MET AT THIS TIME WILL CONTINUE TO MONITOR.
--- NOTE | 2017-08-04 19:35 | NUR ---
GAVE REPORT TO NIGHT NURSE AT BEDSIDE. PATIENT ENDORSED IN STABLE CONDITION.
--- NOTE | 2017-08-04 19:36 | NUR ---
RECEIVED REPORT FROM DAY NURSE. PT IS IN STABLE CONDITION. NO S/S OF DISTRESS NOTED. PT IS AA0X4, PT IS ON 2L 02 VIA NC, PT HAS IV TO R FA 20 G, INFUSING WELL, DRY AND INTACT. PT SKIN IS IN TACT. INITIAL ASSESSMENT COMPLETED, PLAN OF CARE DISCUSSED WITH PT. PT VERBALIZED UNDERSTANDING. ALL SAFETY PRECAUTIONS MET, CALL LIGHT WITHIN REACH, WILL CONTINUE TO MONITOR.
[2017-08-04 20:00] VITALS: BP 116/57
--- NOTE | 2017-08-04 20:07 | NUR ---
PT STATED SHE WAS IN 9/10 PAIN, WILL MEDICATE PER MD ORDERS.
[2017-08-04] MEDS: SIMVASTATIN 40 MG TAB PO SCH (20:12)
--- NOTE | 2017-08-04 20:12 | NUR ---
DUE MEDICATIONS GIVEN, PT TOLERATED WELL. METOPROLOL WAS HELD DUE TO PTS BP 116/57 AND BECAUSE MORPHINE WAS GIVEN 2006. MYLICON WAS NOT GIVEN BECAUSE PT REFUSED THE MEDICATION AND SAID, "I DO NOT FEEL LIKE I NEED THAT ONE, I HAVE NO GAS RIGHT NOW." PT EDUCATED ON MEDICATION AND VERBALIZED UNDERSTANDING. ALL SAFETY PRECAUTIONS MET, CALL LIGHT WITHIN REACH, WILL CONTINUE TO MONITOR.
--- NOTE | 2017-08-04 20:37 | NUR ---
CHECKED IN ON PT. PT RESTING COMFORTABLY IN BED. PT DENIES ANY PAIN. ALL SAFETY PRECAUTIONS MET, CALL LIGHT WITHIN REACH, WILL CONTINUE TO MONITOR.
--- NOTE | 2017-08-04 22:45 | NUR ---
ASSISTED PT IN THE RESTROOM, PT STATED SHE FELT TOO WEAK TO GET UP ON HER OWN. PT USED RESTROOM AND I ASSISTED WITH AMBULATION. PT NOW SAFELY BACK IN BED.
--- NOTE | 2017-08-04 22:56 | NUR ---
CAME AND ASKED ABOUT PT'S TRANSFER TO [facility].I SAID NO BED AVAILABLE YET.HE GAVE ME THE NAME OF ANOTHER MED THAT CAN GIVE IT TO PT INSTEAD OF [facility].THE NAME OF NEW MED IS FOSCAR[facility] IV.I WILL ENDORSE TO AM CHARGE NURSE.
[2017-08-05] VITALS: BP 120/41
[2017-08-05] MEDS: IPRATROPIUM 0.02% 0.5 MG/2.5 ML NEBU IH SCH ×4 (00:12→19:38)
[2017-08-05] MEDS: ALBUTEROL 0.083% 2.5 MG/3 ML NEBU IH SCH ×4 (00:12→19:38)
--- NOTE | 2017-08-05 01:40 | NUR ---
CHECKED IN ON PT. PT STATED SHE "FELT LIKE SHE IS HAVING TROUBLE BREATHING." PTS 02 SAT: 92%. PAGED RT TO COME ASSESS.
--- NOTE | 2017-08-05 01:55 | NUR ---
RT IN TO SEE PT. PATIENT PLACED ON 35% VENTURI MASK, O2 SAT: 92%, WILL CONTINUE TO MONITOR.
--- NOTE | 2017-08-05 01:58 | NUR ---
PATIENT PLACED ON 35% VENTURI MASK, BS CLEAR SAO2 92% HR 113 RR-24
--- NOTE | 2017-08-05 02:10 | NUR ---
WANTS WARM COMPRESS APPLIED ON HER ABDOMEN TO RELIEVE PAIN SHE DOES AT HOME. WILL CALL
[2017-08-05] MEDS: MORPHINE SULFATE 2 MG/ML SYR IVP PRN ×3 (02:17→17:28)
--- NOTE | 2017-08-05 02:17 | NUR ---
PT STATES SHE FEELS, "MUCH BETTER NOW WITH VENTURI MASK." PT STATED SHE IS IN PAIN 8/10 IN ABDOMEN, WILL MEDICATE PER MD ORDERS.
--- NOTE | 2017-08-05 02:48 | NUR ---
PT RESTING COMFORTABLY IN BED WITH NO C/O PAIN, CALL LIGHT WITHIN REACH, WILL CONTINUE TO MONITOR.
[2017-08-05 04:00] VITALS: BP 110/65
--- NOTE | 2017-08-05 04:10 | NUR ---
PT CALLED TO USE BEDPAN, PROVIDED PT WITH BEDPAN. PT HAD VERY SMALL AMOUNT OF BLOOD ON TISSUE AFTER WHIPPING AND SMALL AMOUNT NOTED IN UNDERWEAR. NO BLOOD IN THE URINE NOTED. NOTIFIED CHARGE NURSE JACKELYN, SHE SAID TO MONITOR FOR NOW. ALL SAFETY PRECAUTIONS MET, CALL LIGHT WITHIN REACH WILL CONTINUE TO MONITOR
--- NOTE | 2017-08-05 05:30 | NUR ---
PT CALLED FOR BEDPAN, BEDPAN PROVIDED, PT VOIDED, NO BLOOD NOTED AT THIS TIME. WILL CONTINUE TO MONITOR. CALL LIGHT WITHIN REACH.
[2017-08-05] MEDS: SIMETHICONE 80 MG TAB.CHEW PO SCH ×4 (06:34→20:53)
--- NOTE | 2017-08-05 07:19 | NUR ---
ENDORSED PLAN OF CARE TO DAY NURSE, PT IN STABLE CONDITION. NO S/S OF DISTRESS NOTED
--- NOTE | 2017-08-05 07:20 | NUR ---
RECEIVED PATIENT REPORT AT BEDSIDE FROM NIGHT NURSE. PATIENT IS AAOX4 AND SHOWS NO S/S OF ACUTE DISTRESS ON VENTURI MASK AT 11LPM. PATIENT HAS SLIGHT FEVER AT 100.0 F. PATIENT STATES 8/10 LOWER ABD PAIN AND ESOPHAGEAL PAIN. PATIENT BP IS LOW WILL REASSESS AND GIVE PRN PAIN MEDICATION WHEN APPROPRIATE. IV NOTED ON THE R FA WITH IVF'S INFUSING WELL. ST ON TELE MONITOR AND ASYMPTOMATIC. SKIN IS INTACT. PATIENT IS AWARE OF POC FOR TODAY AND VERBALIZED UNDERSTANDING. THE BED IS LOWERED WITH CALL LIGHT WITHIN REACH. WILL CONTINUE TO MONITOR.
[2017-08-05 08:00] VITALS: BP 110/49
[2017-08-05] MEDS: LACTOBACILLUS RHAMNOSUS GG 1 EACH CAP PO SCH (08:50)
[2017-08-05] MEDS: FUROSEMIDE 40 MG TAB PO SCH (08:51)
[2017-08-05] MEDS: POTASSIUM CHLORIDE 10 MEQ TABER PO SCH ×2 (08:51→20:54)
[2017-08-05] MEDS: METOPROLOL 50 MG TAB PO SCH ×2 (08:52→20:56)
[2017-08-05] MEDS: FELODIPINE 2.5 MG PO SCH (08:52)
[2017-08-05] MEDS: PANTOPRAZOLE 40 MG TABEC PO SCH (08:52)
[2017-08-05] MEDS: MULTIVITAMIN/MINERALS 1 TAB PO SCH (08:53)
[2017-08-05] MEDS: ACETAMINOPHEN 325 MG TAB PO PRN (08:53)
--- NOTE | 2017-08-05 08:55 | NUR ---
ADMINISTERED SCHEDULED MEDICATIONS. PATIENT TOOK ONE BY ONE WITH SIPS OF MILK. PATIENT WAS GIVEN ICE BAG FOR COOLING MEASURES FOR 100.0 F TEMPERATURE AND WAS ALSO GIVEN TYLENOL 650 MG PO. WILL CONTINUE TO MONITOR.
--- NOTE | 2017-08-05 10:30 | NUR ---
PATIENT TEMPERATURE IS NOW 98.6 FAHRENHEIT. PATIENT SHOWS NO S/S OF ACUTE DISTRESS WITH VENTURI MASK AT 35% AND 11 LPM. WILL CONTINUE TO MONITOR. THE BED IS IN LOW POSITION WITH CALL LIGHT WITHIN REACH.
[2017-08-05] MEDS: guaiFENesin/CODEINE 100/10MG 5 ML UDC PO PRN ×2 (11:10→17:32)
--- NOTE | 2017-08-05 11:10 | NUR ---
ADMINISTERED MORPHINE 2 MG IVP FOR 8/10 LOWER ABD PAIN. WILL REASSESS IN 30 MIN.
--- NOTE | 2017-08-05 11:39 | NUR ---
PATIENT STATES PAIN LEVEL IS 7/10 AT LOWER ABD. PATIENT STATES "I AM FINE AND THE MORPHINE HELPS, I'LL LET YOU KNOW WHEN I NEED ANOTHER PAIN MEDICATION." WILL CONTINUE TO MONITOR.
[2017-08-05 12:00] VITALS: BP 102/55
--- NOTE | 2017-08-05 13:11 | NUR ---
RT SAW PT AND PT IS NOW ON OXYMIZER NC WITH 6LPM. PATIENT IS AAOX4 AND SHOWS NO S/S OF ACUTE DISTRESS. WILL CONTINUE TO MONITOR.
[2017-08-05 13:16] LABS: HEMATOCRIT 35.9 % (36-48); HEMOGLOBIN 11.3 g/dL (12.0-16.0); MEAN CORPUSCULAR HEMOGLOBIN 27 pg (27-31); MEAN CORPUSCULAR HGB CONC 32 g/dL (33-37); MEAN CORPUSCULAR VOLUME 84 fL (80-94); PLATELET COUNT (AUTO) 570 K/uL (140-450); RED BLOOD CELL COUNT(AUTO) 4.25 MIL/uL (4.20-5.40); RED CELL DISTRIBUTION WIDTH 15.4 % (11.6-13.7); WHITE BLOOD COUNT (AUTO) 18.9 K/uL (4.8-10.8)
[2017-08-05 13:42] LABS: LYMPHOCYTES % (MANUAL) 4 % (20-46); MONOCYTES % (MANUAL) 3 % (5-12)
[2017-08-05 13:46] LABS: ALBUMIN 1.8 g/dL (3.4-5.0); ANION GAP 7.3 (8-16); CARBON DIOXIDE 30.4 mmol/L (21-32); CREATININE 0.5 mg/dL (0.6-1.3); POTASSIUM 3.7 mmol/L (3.5-5.1); TOTAL BILIRUBIN 0.7 mg/dL (0.0-1.0)
--- NOTE | 2017-08-05 14:15 | NUR ---
PATIENT IS SLEEPING AND SHOWS NO S/S OF ACUTE DISTRESS ON OXYMIZER 6 LPM. BED IS LOWERED WITH CALL LIGHT WITHIN REACH.
[2017-08-05 16:00] VITALS: BP 113/58
--- NOTE | 2017-08-05 17:38 | NUR ---
PATIENT STATED LOWER ABD PAIN AT 8/10. ADMINISTERED MORPHINE 2 MG IV. WILL REASSESS IN 30 MIN.
--- NOTE | 2017-08-05 19:30 | NUR ---
GAVE PATIENT REPORT AT BEDSIDE TO NIGHT NURSE. PATIENT ENDORSED IN STABLE CONDITION.
--- NOTE | 2017-08-05 19:31 | NUR ---
RECD. RESTING IN BED, AWAKE, A/OX4, ON 02 OXYMIZER AT 6 LITERS, 02 SAT - 97%. NO SOB NOTED. IV SALINE LOCK AT THE RIGHT FOREARM G22, PATENT AND INTACT. SAFETY MEASURES ENFORCED. INSTRUCTED TO CALL NURSE WHEN NEEDING HELP. PLAN OF CARE FOR THE SHIFT DISCUSSED. VERBALIZED UNDERSTANDING. DENIES PAIN 0/10.
--- NOTE | 2017-08-05 20:00 | NUR ---
Patient's Plan of Care was discussed and reviewed with ORDERING MACHINE OPERATOR: KAN LOYOLA
[2017-08-05] MEDS: PSEUDOEPHEDRINE 30 MG TAB PO SCH (20:54)
[2017-08-05] MEDS: SIMVASTATIN 40 MG TAB PO SCH (20:56)
[2017-08-05] MEDS ORDERED: AMITRIPTYLINE 25 MG TAB PO SCH (21:00)
--- NOTE | 2017-08-05 21:25 | NUR ---
DR. SWANSON CAME AND CHECKED PATIENT, WILL FOLLOW UP NEW ORDERS.
--- NOTE | 2017-08-05 21:30 | NUR ---
APPLIED HEATING PAD ON THE ABDOMEN. FEELS BETTER.
[2017-08-05 23:21] VITALS: BP 117/59
[2017-08-06] MEDS ORDERED: PIPERACILLIN/TAZOBACTAM 3.375 GM VIAL IV ONE ×2 (00:45→06:32)
[2017-08-06 00:50] VITALS: BP 123/57
[2017-08-06] MEDS: PIPER/TAZO 3.375GM/D5W PREMIX 50 ML IV SCH ×4 (00:50→17:29)
[2017-08-06] MEDS: MORPHINE SULFATE 2 MG/ML SYR IVP PRN ×3 (00:51→16:27)
[2017-08-06] MEDS: PROMETH/CODEINE 6.25-10MG/5ML 5 ML UDC PO PRN ×2 (00:59→09:31)
--- NOTE | 2017-08-06 01:00 | NUR ---
COMPLAINT OF UNABLE TO SLEEP DUE TO COUGHING. MEDICATED WITH PROMETHAZINE WITH CODEINE ORDERED.
[2017-08-06] MEDS: IPRATROPIUM 0.02% 0.5 MG/2.5 ML NEBU IH SCH ×4 (01:24→20:09)
[2017-08-06] MEDS: ALBUTEROL 0.083% 2.5 MG/3 ML NEBU IH SCH ×4 (01:25→20:09)
--- NOTE | 2017-08-06 02:00 | NUR ---
RESTING COMFORTABLY IN BED, NO COUGHING NOTED.
--- NOTE | 2017-08-06 06:00 | NUR ---
SENT UA SPECIMEN FOR URINE CULTURE TO LABORATORY.
[2017-08-06 06:14] LABS: APPEARANCE,URINE CLEAR (CLEAR); BILIRUBIN,URINE NEGATIVE (NEGATIVE); BLOOD, URINE NEGATIVE (NEGATIVE); COLOR,URINE YELLOW (YELLOW); LEUKOCYTE ESTERASE ,URINE NEGATIVE (NEGATIVE); NITRITE, URINE NEGATIVE (NEGATIVE); UGLUCOSE NEGATIVE (NEGATIVE)
[2017-08-06 06:17] LABS: HEMATOCRIT 33.7 % (36-48); HEMOGLOBIN 10.9 g/dL (12.0-16.0); MEAN CORPUSCULAR HEMOGLOBIN 28 pg (27-31); MEAN CORPUSCULAR HGB CONC 32 g/dL (33-37); MEAN CORPUSCULAR VOLUME 85 fL (80-94); PLATELET COUNT (AUTO) 546 K/uL (140-450); RED BLOOD CELL COUNT(AUTO) 3.96 MIL/uL (4.20-5.40); RED CELL DISTRIBUTION WIDTH 15.6 % (11.6-13.7)
[2017-08-06 06:40] LABS: ANION GAP 10.5 (8-16); CARBON DIOXIDE 29.1 mmol/L (21-32); CREATININE 0.5 mg/dL (0.6-1.3); POTASSIUM 3.6 mmol/L (3.5-5.1)
--- NOTE | 2017-08-06 06:57 | NUR ---
DUE ZOSYN FOR THE SHIFT INFUSED BY MARQUEZ RODAS. TOLERATED WELL. PATIENT RESTING COMFORTABLY IN BED.
--- NOTE | 2017-08-06 07:34 | NUR ---
HAD TO STOP HHN TX BECAUSE PT'S HR WENT FROM 106 TO 129. RN AWARE . PT IS AWAKE AND ALERT. BS RHONCHI. PT REFUSED SXN AND SAID GAVE HER COUGH MEDICINE. I EXPLAINED THAT COUGH MEDICINE IS NOT TO CLEAR SECRETIONS BUT PT SAID SHE DOESN'T WANT TO. WILL CONTINUE TO MONITOR.
--- NOTE | 2017-08-06 07:35 | NUR ---
REPORT Addendum: 08/06/17 at 1302 by Priya Villegas RN REPORT RECEIVED FROM SCRUM PROJECT MANAGER, PT AWAKE ALERT, RESP EVEN UNLABORED ON 6L O2 OXYMIZER, SKIN WARM DRY COLOR WNL, INITIAL ASSESSMENT COMPLETED, PLAN OF CARE REVIEWED, PT VERBALIZED FULL UNDERSTANDING, CALL JAVIER WITHIN REACH, SIDE RAILS UP, RESP TECH AT BEDSIDE AT THIS TIME.
[2017-08-06 07:58] LABS: RBC,URINE NONE SEEN /HPF (0-5); WBC,URINE 0-5 (RARE) /HPF (0-5)
[2017-08-06 08:00] VITALS: BP 125/83
[2017-08-06 08:22] LABS: LYMPHOCYTES % (MANUAL) 7 % (20-46); MONOCYTES % (MANUAL) 5 % (5-12)
[2017-08-06] MEDS: PSEUDOEPHEDRINE 30 MG TAB PO SCH (08:26)
[2017-08-06] MEDS: MULTIVITAMIN/MINERALS 1 TAB PO SCH (08:26)
[2017-08-06] MEDS: PANTOPRAZOLE 40 MG TABEC PO SCH (08:27)
[2017-08-06] MEDS: METOPROLOL 50 MG TAB PO SCH (08:27)
[2017-08-06] MEDS: LACTOBACILLUS RHAMNOSUS GG 1 EACH CAP PO SCH (08:27)
[2017-08-06] MEDS: SIMETHICONE 80 MG TAB.CHEW PO SCH ×3 (08:28→17:29)
[2017-08-06] MEDS: POTASSIUM CHLORIDE 10 MEQ TABER PO SCH (08:28)
[2017-08-06] MEDS ORDERED: LORATADINE 10 MG TAB PO SCH (09:00)
[2017-08-06] MEDS: FUROSEMIDE 40 MG TAB PO SCH (09:00)
[2017-08-06] MEDS: ACETAMINOPHEN 325 MG TAB PO PRN (09:30)
[2017-08-06] MEDS: FELODIPINE 2.5 MG PO SCH (10:55)
--- NOTE | 2017-08-06 13:03 | NUR ---
PER DR MORALEZ ON THE PHONE, CALLED FOR PATHOLOGY RESULT FOR ESOPHAGEAL BIOPSY LAST WEEK, NO ANSWER, MESSAGE LEFT AT [phone]. WILL CALL AGAIN.
--- NOTE | 2017-08-06 13:04 | NUR ---
IV SITE LEAKING, SMALL ECCHYMOSIS NOTED AT IV SITE, ANTIBIOTIC INFUSION STOPPED, WILL START NEW IV.
--- NOTE | 2017-08-06 16:10 | NUR ---
V/S WITHIN NORMAL LIMITS. PATIENT COMPLAINS OF ABDOMINAL PAIN 07/28. DENIES NAUSEA/VOMITING. ABDOMEN FLAT, SOFT, NON-DISTENDED. WILL MEDICATE WITH MORPHINE. PT REMAINS ON 6L OXIMIZER. RESPIRATIONS EVEN, UNLABORED. O2 SAT 93%. PATIENT TO BE TRANSFERRED TO [facility] WHEN BED READY. AWAITING CONFIRMATION FROM CASE MANAGEMENT. PATIENT AWARE OF PLAN. CALL JAVIER WITHIN REACH, SAFETY MEASURES IN PLACE. WILL CONTINUE TO MONITOR.
--- NOTE | 2017-08-06 18:15 | NUR ---
Patient will go to [facility] on the 4 th floor room 408B. orlando Joe will be the accepting doctor. occupational therapy co director at [facility]30 [facility]. spoke to Joanna and said to send after 730 pm.
--- NOTE | 2017-08-06 19:22 | NUR ---
REPORT GIVEN TO SQUARE CUTTER NURSE. PATIENT IN STABLE CONDITION.
--- NOTE | 2017-08-06 19:30 | NUR ---
RECEIVED REPORT FROM AM NURSE. PT RESTING IN BED, AOX4, AMBULATORY, ABLE TO VERBALIZE NEEDS. PT DENIES CHEST PAIN, SOB OR S/S OF ACUTE DISTRESS. SPO2 92% AT O2 5L OXYMIZER, RR 22 UNLABORED. SCDs ENSURED. IV ACCESS ASYMPTOMATIC, PATENT AND INTACT. SALINE LOCKED AT THIS TIME. DISCUSSED AND REVIEWED PLAN OF CARE WITH PT. PT TO BE TRANSFERRED TO [facility]. PT VERBALIZED UNDERSTANDING. ALL NEEDS MET. SAFETY MEASURES ENSURED. CALL LIGHT WITHIN REACH. WILL CONTINUE TO MONITOR.
[2017-08-06 20:00] VITALS: BP 104/45
[2017-08-06 20:35] VITALS: BP 104/45
--- NOTE | 2017-08-06 20:55 | NUR ---
CALLED REPORT TO MARQUEZ LY FROM [facility]. WAS MADE AWARE THAT PT IS GOING TO ROOM 497B, BUT IS SUBJECT TO CHANGE. DISCUSSED AND REVIEWED PLAN OF CARE, ENDORSED PLAN OF CARE TO RECEIVING RN.
--- NOTE | 2017-08-06 21:12 | NUR ---
REPORT GIVEN TO [facility] TRANSPORT HERE TO LAVATORY ATTENDANT PT. TRANSFER RECORDS WITH CD GIVEN. DISCHARGE INSTRUCTIONS GIVEN TO PT AND SIGNED. PT SPO2 93% AT O2 5L OXYMIZER, NO SOB, CONDITION STABLE. IV ACCESS ASYMPTOMATIC, PATENT AND INTACT, SALINE LOCKED. BELONGINGS CHECKED AND KEPT WITH PT.
--- NOTE | 2017-08-06 21:15 | NUR ---
PT DISCHARGED, PICKED UP BY [facility]SPORT AT THIS TIME. CONDITION STABLE.
== END 2017-08-06 21:15 | disposition short-term general hospital (02) | DRG 871 ==
LOC: MED 16:45 → MTU 20:12
PROVIDERS: ADMIT Preventive Medicine Preventive Medicine/Occupational Environmental Medicine; ATTEND Preventive Medicine Preventive Medicine/Occupational Environmental Medicine
PROC: 0DB58ZX Excision of Esophagus, Via Natural or Artificial Opening Endoscopic, Diagnostic (ICD-10-PCS; principal; 2017-08-01 11:30)
DX: A41.9 Sepsis, unspecified organism (principal); J96.00 Acute respiratory failure, unspecified whether with hypoxia or hypercapnia; E43 Unspecified severe protein-calorie malnutrition; J18.9 Pneumonia, unspecified organism; B25.8 Other cytomegaloviral diseases; K22.10 Ulcer of esophagus without bleeding; J44.1 Chronic obstructive pulmonary disease with (acute) exacerbation; E11.65 Type 2 diabetes mellitus with hyperglycemia; D75.89 Other specified diseases of blood and blood-forming organs; K21.0 Gastro-esophageal reflux disease with esophagitis; R12 Heartburn; R19.7 Diarrhea, unspecified; E83.51 Hypocalcemia; F17.210 Nicotine dependence, cigarettes, uncomplicated; E83.52 Hypercalcemia; D64.9 Anemia, unspecified; Y95 Nosocomial condition; I10 Essential (primary) hypertension; G89.4 Chronic pain syndrome; E78.5 Hyperlipidemia, unspecified; Z79.891 Long term (current) use of opiate analgesic; Z90.49 Acquired absence of other specified parts of digestive tract; Z88.8 Allergy status to other drugs, medicaments and biological substances
CPT/HCPCS: 36415; 71010; 74220; 80048; 80053; 81001; 82550; 82553; 83735; 83880; 84100; 84484; 85025; 85610; 85651; 85730; 86140; 87040; 87070; 87081; 87086; 88305; 88312; 88342; 93005; 94640; 96365; 96367; 96375; 99285; J1200; J1450; J1956; J2001; J2250; J2270; J2543; J2930; J3010; J3475; J3480; J7030; J7042; J7060; J7512; J7613; J7644; Q0092

== ENCOUNTER 2018-06-21 16:46 | Inpatient (IN) | payer OTHER ==
[~2018-06-21] VITALS: Ht 170.2 cm; Wt 45.4 kg
[2018-06-21 16:46] VITALS: BP 147/72
[~2018-06-21 16:46] MED LIST changes: +METO100T23 PO; -[UNRECOGNIZED DRUG - CODE] PO
--- NOTE | 2018-06-21 16:48 | NUR ---
PT BIBA ALS TO BED 3
--- NOTE | 2018-06-21 16:50 | NUR ---
68Y/ F BIBA C/O SOB. PT STATES " SHE CAME FROM HOME WITH SUDDEN ONSET OF SOB." ALBUTEROL/ATROV. RESP. TX GIVEN FIELD WITH RESP. WHEEZES. POX FIELD 96%-98% WITH TX. DAUGHTER AT BEDSIDE. PT DENIES N/V/D; SKIN IS PINK/WARM/DRY; AAOX4 WITH EVEN AND STEADY GAIT; HR EVEN AND REGULAR; PT DENIES ANY FEVER, CP, OR COUGH AT THIS TIME; PATIENT STATES PAIN OF 8/10 AT THIS TIME; VSS; PATIENT POSITIONED FOR COMFORT; HOB ELEVATED; BEDRAILS UP X1; BED DOWN. ER MD MADE AWARE OF PT STATUS. HX: COPD,HTN,HIGH CHOL. HOME O2 AT 3LNC. COMPLAINING EPIGASTRIC PAIN
--- NOTE | 2018-06-21 16:51 | NUR ---
PT CAME IN WITH IV SITE MANAGEMENT ON RIGHT FOREARM 20G
[2018-06-21] MEDS ORDERED: ALBU-118 IH (17:26)
[2018-06-21] MEDS ORDERED: AMLO5TAB PO (17:26)
[2018-06-21] MEDS ORDERED: POTA10TE30 PO (17:26)
[2018-06-21] MEDS ORDERED: ATRN INH (17:26)
[2018-06-21] MEDS ORDERED: SIMV40TA1 PO (17:26)
[2018-06-21] MEDS ORDERED: MSCON30 PO (17:26)
[2018-06-21] MEDS ORDERED: ALBU2.5V IH (17:26)
[2018-06-21] MEDS ORDERED: NACL 0.9% 2,000 ML IV SCH (17:29)
[2018-06-21] MEDS ORDERED: methylPREDNISolone SS 125 MG/2 ML VIAL IVP ONE (17:30)
[2018-06-21] MEDS ORDERED: ALBUTEROL 0.083% 2.5 MG/3 ML NEBU INH ONE ×2 (17:30)
[2018-06-21] MEDS ORDERED: MORPHINE SULFATE 2 MG/ML SYR IM ONE (17:30)
[2018-06-21] MEDS ORDERED: IPRATROPIUM 0.02% 0.5 MG/2.5 ML NEBU INH ONE ×2 (17:30)
[2018-06-21] MEDS ORDERED: AZITHROMYCIN 500 MG in DEXTROSE 5% 250 ML IV ONE (17:30)
[2018-06-21] MEDS ORDERED: PIPERACILLIN/TAZOBACTAM 3.375 GM in DEXT 5% MINI-BAG PLUS 50 ML IV ONE (17:30)
[2018-06-21] MEDS ORDERED: ONDANSETRON 4 MG/2 ML VIAL IVP ONE (17:30)
--- NOTE | 2018-06-21 17:34 | NUR ---
Patient being evaluated by physician at bedside.
[2018-06-21] MEDS ORDERED: PIPERACILLIN/TAZOBACTAM 3.375 GM VIAL IV ONE (17:43)
[2018-06-21] MEDS ORDERED: AZITHROMYCIN 500 MG INJ VIAL IV ONE (17:44)
--- NOTE | 2018-06-21 17:48 | NUR ---
PT HAS REFUSED ABG AND DR. SKINNER NOTIFIED
--- NOTE | 2018-06-21 18:01 | NUR ---
# 8 FR Urinary catheter inserted utilizing sterile technique. Immediate return of 30 mlYELLOW urine noted. Urine sample collected and sent to lab. Pt tolerated procedure WELL
--- NOTE | 2018-06-21 18:03 | NUR ---
PT ASSISTED ONTO BEDPAN, ONE SOFT STOOL NOTED.
[2018-06-21] MEDS ORDERED: NACL 0.9% 1,000 ML IV SCH (18:13)
[2018-06-21 18:14] LABS: BASOPHILS % (AUTO) 0.2 % (0.0-2.0); EOSINOPHILS % (AUTO) 0.2 % (0.0-4.0); HEMATOCRIT 39.4 % (36-48); HEMOGLOBIN 12.5 g/dL (12.0-16.0); LYMPHOCYTES # (AUTO) 0.7 K/uL (2.5-16.5); LYMPHOCYTES % (AUTO) 8.7 % (20.5-51.1); MEAN CORPUSCULAR HEMOGLOBIN 26 pg (27-31); MEAN CORPUSCULAR HGB CONC 32 g/dL (33-37); MEAN CORPUSCULAR VOLUME 83.4 fL (80-94); MONOCYTES # (AUTO) 0.6 K/uL (0.8-1.0); NEUTROPHILS # (AUTO) 6.8 K/uL (1.8-7.7); NEUTROPHILS % (AUTO) 83.9 % (42.2-75.2); PLATELET COUNT (AUTO) 242 K/uL (140-450); RED BLOOD CELL COUNT(AUTO) 4.73 MIL/uL (4.20-5.40); RED CELL DISTRIBUTION WIDTH 17.2 % (11.6-13.7); WHITE BLOOD COUNT (AUTO) 8.1 K/uL (4.8-10.8)
[2018-06-21] MEDS ORDERED: ONDANSETRON 4 MG/2 ML VIAL IM/IVP PRN (18:15)
[2018-06-21] MEDS ORDERED: DOCUSATE SODIUM 100 MG GELCAP PO PRN (18:15)
[2018-06-21] MEDS ORDERED: HYDROcodone/APAP 7.5/325 MG 1 TAB PO PRN (18:15)
[2018-06-21 18:25] LABS: PROTHROMBIN TIME 10.4 secs (10.8-13.4)
[2018-06-21 18:27] LABS: MAGNESIUM 1.5 mg/dL (1.8-2.4)
[2018-06-21 18:39] LABS: ANION GAP 13.4 (8-16); CARBON DIOXIDE 30.2 mmol/L (21-32); CREATININE 0.6 mg/dL (0.6-1.3); TOTAL BILIRUBIN 0.3 mg/dL (0.0-1.0)
[2018-06-21 18:43] LABS: POTASSIUM 2.6 mmol/L (3.5-5.1)
[2018-06-21] MEDS ORDERED: MAG SULF 2000 MG/WATER PREMIX 50 ML IV ONE (18:50)
[2018-06-21] MEDS ORDERED: POTASSIUM CHLORIDE 10 MEQ TABER PO ONE (18:50)
[2018-06-21] MEDS ORDERED: POTASSIUM CHL 40 MEQ/ D5-1/2NS 1,000 ML IV ONE ×2 (18:50)
[2018-06-21 18:55] LABS: APPEARANCE,URINE CLEAR (CLEAR); BILIRUBIN,URINE 1+ (NEGATIVE); BLOOD, URINE NEGATIVE (NEGATIVE); COLOR,URINE YELLOW (YELLOW); LEUKOCYTE ESTERASE ,URINE NEGATIVE (NEGATIVE); NITRITE, URINE NEGATIVE (NEGATIVE); UGLUCOSE NEGATIVE (NEGATIVE)
--- NOTE | 2018-06-21 18:57 | NUR ---
Note brock in ED - 06/21/18 at 1919 by MEDCS1 HUMPHREY TO MARQUEZ DOHERTY ABOUT FOLLOWING UP ON MAG AND K IV MEDS. K AND MAG MEDS NOT STARTED ON PT BECAUSE PT HAS ANTTIBIOTIC RUNNNING AT THIS TIME.
--- NOTE | 2018-06-21 18:57 | NUR ---
Patient will be admitted to care of DR. LIZ. Admited to TELE FLOOR. Will go to room 111-A. Belongings list completed. Report to MARQUEZ DOHERTY.
[2018-06-21 18:58] LABS: ACETONE, SERUM NEGATIVE (NEGATIVE)
[2018-06-21 19:04] LABS: RBC,URINE 0-5 (RARE) /HPF (0-5); WBC,URINE 0-5 (RARE) /HPF (0-5)
[2018-06-21 19:10] VITALS: BP 149/58
--- NOTE | 2018-06-21 19:10 | NUR ---
FROM ER. CAME BY LEIWILEY ACCOMPANIED BY SISTER. PT IS AWAKE,ALERT AND ORIENTED X4. WITH O23L/NC. PT SAID SHE IN ON O23L/AT HOME. ON TELE MONITOR. SKIN INTACT. NO SOB NOTED AT THIS TIME. PT HAS COPD EXACERBATION, AND PNEUMONITIS. ALSO WITH DEHYDRATION. MAGNESIUM AND K LEVEL ARE LOW. PLAN OF CARE DISCUSSED AND VERBALIZED UNDERSTANDING. HAS IV ZITHROMAX IVPB STILL INFUSING ON THE RT AC #20 IV ACCESS. ER NURSE SAID PT STILL NEED 1L NS BOLUS. ORIENTED TO HOSPITAL ROUTINE. BED ON LOWEST POSITION, CALL LIGHT PLACED WITHIN EASY REACH. PT WITH MILD WEAKNESS. INITIATE HIGH RISK FOR FALL PROTOCOL. INSTRUCTED TO CALL IF NEED ASSISTANCE. WILL CONTINUE TO MONITOR AND FOLLOW UP ALL ADMIT ORDERS.
[2018-06-21 19:41] LABS: MAGNESIUM 1.5 mg/dL (1.8-2.4); PHOSPHORUS 2.4 mg/dL (2.5-4.9); THYROID STIMULATING HORMONE 0.29 uIU/mL (0.34-3.74)
--- NOTE | 2018-06-21 20:00 | NUR ---
PT/FAMILY REQUESTED TO SEE MD. DR. STREET ,RESIDENT CAME AND TALKED TO BOTH PT/AND FAMILY.
--- NOTE | 2018-06-21 20:10 | NUR ---
MRSA NARES SPECIMEN COLLECTED AND SEND TO LAB.
[2018-06-21] MEDS ORDERED: LIDOCAINE VISCOUS 2% 20 ML UDC PO PRN (20:25)
[2018-06-21] MEDS: MORPHINE SULFATE 2 MG/ML SYR IVP PRN (20:29)
[2018-06-21] MEDS ORDERED: KCL 20 MEQ/WATER INJ PREMIX 200 ML IV SCH (20:30)
[2018-06-21] MEDS ORDERED: ALBUTEROL SULFATE/IPRATROPIU 3 ML SOL IH PRN (20:55)
[2018-06-21] MEDS ORDERED: MAG SULF 2000 MG/WATER PREMIX 100 ML IV SCH (21:00)
[2018-06-21] MEDS ORDERED: guaiFENesin DM 200/20 MG-10 ML 10 ML UDC PO PRN (21:00)
[2018-06-21] MEDS ORDERED: CARISOPRODOL 350 MG PO SCH (21:00)
[2018-06-21] MEDS ORDERED: BISMUTH SUBSALICYLATE 15 ML UDBTL PO SCH (21:30)
[2018-06-21] MEDS ORDERED: PANTOPRAZOLE 40 MG TABEC PO SCH (21:30)
[2018-06-21] MEDS: DEXT 5% / NACL 0.9% 500 ML IV SCH (21:30)
--- NOTE | 2018-06-21 21:30 | NUR ---
PEPTO BISMOL NOT AVAILABLE. DR. STREET MADE AWARE .HE SAID OK NOT TO GIVE TONIGHT AND LONG PT GET THE PROTONIX PO.
--- NOTE | 2018-06-21 22:30 | NUR ---
ASSISTED UP TO BATHROOM . VOIDED WELL. PT WITH MILD WEAKNESS. BUT ABLE TO AMBULATE WITH STANDBY ASSISTANCE.
--- NOTE | 2018-06-21 22:45 | NUR ---
SCD MACHINE APPLIED TO BOTH LOWER LEGS PER ORDER. PT MADE AWARE OF THE BENEFIT OF THE MACHINE AND VERBALIZED UNDERSTANDING.
--- NOTE | 2018-06-22 00:20 | NUR ---
AWAKE. NO C/O ANY PAIN NOTED. VITAL SIGNS STABLE.
[2018-06-22 00:21] VITALS: BP 141/57
[2018-06-22] MEDS ORDERED: KCL 20 MEQ/WATER INJ PREMIX 200 ML IV SCH (02:00)
--- NOTE | 2018-06-22 02:20 | NUR ---
CLARIFIED WITH DR. STREET,RESIDENT MD ABOUT THE SECOND 40MEQ RIDER . HE SAID TO CONTINUE GIVING THE OTHER 40 MEQ IVPB NOW.
[2018-06-22] MEDS: MORPHINE SULFATE 2 MG/ML SYR IVP PRN ×4 (02:29→21:55)
--- NOTE | 2018-06-22 02:40 | NUR ---
CALLED PHARMACY AND CLARIFIED ABOUT THE SOLU -MEDROL IVP ORDERED. THEY WILL ADJUST TIME .
[2018-06-22] MEDS: DEXT 5% / NACL 0.9% 500 ML IV SCH ×2 (03:09→06:32)
[2018-06-22] MEDS: BISMUTH SUBSALICYLATE 15 ML UDBTL PO SCH ×6 (04:00→20:13)
[2018-06-22 04:18] VITALS: BP 156/71
[2018-06-22 06:23] LABS: HEMATOCRIT 35.2 % (36-48); HEMOGLOBIN 11.2 g/dL (12.0-16.0); MEAN CORPUSCULAR HEMOGLOBIN 27 pg (27-31); MEAN CORPUSCULAR HGB CONC 32 g/dL (33-37); MEAN CORPUSCULAR VOLUME 83.4 fL (80-94); PLATELET COUNT (AUTO) 207 K/uL (140-450); RED BLOOD CELL COUNT(AUTO) 4.22 MIL/uL (4.20-5.40); WHITE BLOOD COUNT (AUTO) 7.4 K/uL (4.8-10.8)
--- NOTE | 2018-06-22 06:30 | NUR ---
INSTRUCTED PT THE NEED TO COLLECT SPUTUM FOR CULTURE. SPECIMEN BOTTLE AT BEDSIDE. VERBALIZED UNDERSTANDING.
[2018-06-22 06:33] LABS: ANION GAP 10.7 (8-16); CARBON DIOXIDE 29.4 mmol/L (21-32); CREATININE 0.4 mg/dL (0.6-1.3); POTASSIUM 4.1 mmol/L (3.5-5.1)
--- NOTE | 2018-06-22 06:34 | NUR ---
PATIENT HAS BEEN SCREENED AND CATEGORIZED HIGH NUTRITION RISK. PATIENT WILL BE SEEN WITHIN 1-2 DAYS OF ADMISSION. 06/21/18-06/22/18 CONNIE PETERSON MS, RDN
[2018-06-22] MEDS: ALBUTEROL SULFATE/IPRATROPIU 3 ML SOL IH SCH ×3 (06:41→19:05)
--- NOTE | 2018-06-22 06:44 | NUR ---
NEW IVF D5NS 270 ML STARTED AFTER THE K RIDER WAS ALL GIVEN.
[2018-06-22] MEDS: BUDESONIDE 0.5 MG/2 ML NEBU INH SCH ×2 (06:50→19:05)
--- NOTE | 2018-06-22 07:15 | NUR ---
ENDORSED PT IN STABLE CONDITION TO AM NURSE FOR CONTINUITY OF CARE.
--- NOTE | 2018-06-22 07:20 | NUR ---
RECEIVED REPORT FROM NIGHT RN AT PT BEDSIDE. PATIENT SLEEPING, AWAKENS TO NAME. DENIES DISCOMFORT AT THIS TIME. ALERT AND ORIENTED. FOLLOWS COMMANDS. PATIENT IS ON 2L NC, NO ACUTE DISTRESS NOTED. CALL LIGHT WITHIN REACH. OFFLOADED PRESSURE AREAS. IV SITE PATENT AND INTACT.
[2018-06-22] MEDS: LACTOBACILLUS RHAMNOSUS GG 1 EACH CAP PO SCH ×3 (07:30→15:26)
[2018-06-22 07:41] LABS: BASOPHILS % (MANUAL) 0 % (0-2); EOSINOPHILS % (MANUAL) 0 % (0-4); LYMPHOCYTES % (MANUAL) 6 % (20-46); MONOCYTES % (MANUAL) 2 % (5-12)
--- NOTE | 2018-06-22 07:53 | NUR ---
PT REFUSED ABG AND DR. NAVA NOTIFIED
[2018-06-22 08:00] VITALS: BP 146/66
--- NOTE | 2018-06-22 08:00 | NUR ---
ROUNDED WITH DR. LIZ. PATIENT RESTING IN BED. MADE AWARE OF CURRENT PLAN OF CARE. IN AGREEMENT. PATIENT MADE AWARE OF NPO STATUS FOR PROCEDURE. IN AGREEMENT.
[2018-06-22] MEDS: CARISOPRODOL 350 MG TAB PO SCH ×2 (09:00→20:25)
[2018-06-22] MEDS: amLODIPine 5 MG TAB PO SCH (09:00)
[2018-06-22] MEDS ORDERED: PANTOPRAZOLE 40 MG TABEC PO SCH (09:00)
[2018-06-22] MEDS: CALCIUM CARBONATE 500 MG TAB PO SCH (09:00)
[2018-06-22] MEDS ORDERED: PANTOPRAZOLE 40 MG INJ VIAL IVP SCH (09:00)
[2018-06-22] MEDS: methylPREDNISolone SS 40 MG/ML VIAL IVP SCH ×2 (09:00→15:30)
--- NOTE | 2018-06-22 09:48 | NUR ---
06/22/18 RD INITIAL ASSESSMENT COMPLETED PLEASE REFER TO NUTRITION ASSESSMENT UNDER CARE ACTIVITY FOR ESTIMATED NUTRITIONAL NEEDS. RD RECOMMENDATIONS: 1. CONTINUE ON PUREE DIET TOLERATED. DIETARY AND NURSING TO ENCOURAGE PO INTAKES TOLERATED. 2. CONSULT RDN PRN. 3. RD WILL F/U 2-3 DAYS; HIGH RISK. CONNIE PETERSON, , RDN
--- NOTE | 2018-06-22 10:20 | NUR ---
PATIENT SCHEDULED FOR CT ABD WITH CONTRAST. MD SPOKE WITH PATIENT REGARDING PLAN OF CARE, IN AGREEMENT. PATIENT KEPT NPO STATUS, DUE MEDICATIONS HELD AT THIS TIME.
--- NOTE | 2018-06-22 11:39 | NUR ---
PATIENT SLEEPING, NO ACUTE DISTRESS NOTED.
[2018-06-22 12:00] VITALS: BP 154/59
--- NOTE | 2018-06-22 13:14 | NUR ---
PT IS STILL UNABLE TO GIVE SPUTUM SAMPLE AT THIS TIME
[2018-06-22 13:34] LABS: CHOL/HDL RATIO 2.7 (1-4.5)
--- NOTE | 2018-06-22 14:00 | NUR ---
PATIENT TAKEN OFF UNIT FOR CT SCAN.
[2018-06-22] MEDS: DEXT 5% /NACL 0.9% 1,000 ML IV SCH ×2 (15:11→22:38)
--- NOTE | 2018-06-22 15:20 | NUR ---
PATIENT CONTINUED ON PUREE DIET. PATIENT TOLERATING PO DIET, NO ACUTE DISTRESS NOTED.
[2018-06-22 16:00] VITALS: BP 126/57
--- NOTE | 2018-06-22 17:45 | NUR ---
PATIENT SEEN BY DR. PECK AT BEDSIDE. PATIENT SCHEDULED FOR EGD TOMORROW. MD SPOKE WITH PATIENT REGARDING CURRENT PLAN OF CARE, IN AGREEMENT.
[2018-06-22] MEDS ORDERED: SIMETHICONE 80 MG TAB.CHEW PO SCH (19:00)
--- NOTE | 2018-06-22 19:23 | NUR ---
SBAR REPORT GIVEN TO RN BESSY AT PT BEDSIDE. PATIENT DENIES DYSPHAGIA AT THIS TIME. NO ACUTE DISTRESS NOTED.
--- NOTE | 2018-06-22 19:24 | NUR ---
RECEIVED PT IN STABLE CONDITION FROM AM NURSE. AWAKE,ALERT AND ORIENTED X4. ON TELE MONITOR -SR. WITH NO SOB NOTED. ON O22L/NC. DENIES ANY PAIN AT THIS TIME. HAS IVF INFUSING WELL ON THE RT AC#20. CLEAR AND PATENT. STILL WITH OCCASIONAL NON PRODUCTIVE COUGH. STILL NEED SPUTUM SPECIMEN FOR CULTURE. PLAN OF CARE DISCUSSED AND VERBALIZED UNDERSTANDING. BED ON ,OW POSITION. CALL LIGHT WITHIN EASY REACH. WILL CONTINUE TO MONITOR.
[2018-06-22 19:32] VITALS: BP 151/61
[2018-06-22] MEDS: PANTOPRAZOLE 40 MG INJ VIAL IVP SCH (20:14)
[2018-06-22] MEDS: SIMVASTATIN 40 MG TAB PO SCH (20:15)
[2018-06-22] MEDS: AMITRIPTYLINE 25 MG TAB PO SCH (20:16)
--- NOTE | 2018-06-22 21:43 | NUR ---
PT FOR EGD SANTOS . PT AWARE ABOUT THE PROCEDURE AND SIGNED CONSENT. TO BE NPO AFTER MIDNIGHT.
[2018-06-22] MEDS ORDERED: SIMETHICONE 40 MG/0.6 ML PO PRN (22:00)
--- NOTE | 2018-06-22 22:55 | NUR ---
MADE ROUNDS. PT IS ASLEEP. NO S/S OF ANY OF ANY DISCOMFORT NOR PAIN NOTED.
[2018-06-23] VITALS (7 sets, daily range): BP systolic 135–155; BP diastolic 53–70
[2018-06-23] MEDS: methylPREDNISolone SS 40 MG/ML VIAL IVP SCH (00:04)
--- NOTE | 2018-06-23 00:05 | NUR ---
PT INSTRUCTED TO BE NPO AFTER MN FOR EGD. PT VERBALIZED UNDERSTANDING.
--- NOTE | 2018-06-23 01:43 | NUR ---
PT HR ON THE MONITOR ON LOW 41. CHECKED ON PT. PT SAID SHE IS OK. NO S/S OF ANY DISTRESS NOTED. WILL CONTINUE TO MONITOR.
--- NOTE | 2018-06-23 04:10 | NUR ---
PT VITAL SIGNS STABLE . HR STILL ON LOW 48/MIN. PT SAID SHE IS OK NO CHEST PAIN OR ANY DISCOMFORT NOTED.
[2018-06-23] MEDS: DEXT 5% /NACL 0.9% 1,000 ML IV SCH (04:35)
--- NOTE | 2018-06-23 06:05 | NUR ---
IV ACCESS ON THE RT AC LEAKING, ALREADY PULLED OUT. NE IV ACCESS STARTED ON THE LT FA#22. CLEAR AND PATENT.
--- NOTE | 2018-06-23 06:40 | NUR ---
TRIED TO CALL DR. STREET , GOT THE MESSAGE AND WILL RELAY TO DR. STREET.FOR PT HR HAS BEEN RUNNING LOW ON 41-48/MIN. THOUGH ASYMPTOMATIC. WILL JUST CONTINUE TO MONITOR .
[2018-06-23] MEDS: ALBUTEROL SULFATE/IPRATROPIU 3 ML SOL IH SCH ×3 (06:59→19:19)
[2018-06-23] MEDS: BUDESONIDE 0.5 MG/2 ML NEBU INH SCH (07:07)
--- NOTE | 2018-06-23 07:15 | NUR ---
ENDORSED PT IN STABLE CONDITION TO AM NURSE FOR CONTINUITY OF CARE.
[2018-06-23 07:20] LABS: HEMATOCRIT 38.8 % (36-48); HEMOGLOBIN 12.3 g/dL (12.0-16.0); LYMPHOCYTES # (AUTO) 0.5 K/uL (2.5-16.5); LYMPHOCYTES % (AUTO) 8.7 % (20.5-51.1); MEAN CORPUSCULAR HEMOGLOBIN 27 pg (27-31); MEAN CORPUSCULAR HGB CONC 32 g/dL (33-37); MEAN CORPUSCULAR VOLUME 83.6 fL (80-94); MONOCYTES # (AUTO) 0.2 K/uL (0.8-1.0); MONOCYTES % (AUTO) 2.8 % (1.7-9.3); NEUTROPHILS % (AUTO) 88.5 % (42.2-75.2); PLATELET COUNT (AUTO) 221 K/uL (140-450); RED BLOOD CELL COUNT(AUTO) 4.64 MIL/uL (4.20-5.40); RED CELL DISTRIBUTION WIDTH 17.3 % (11.6-13.7); WHITE BLOOD COUNT (AUTO) 5.7 K/uL (4.8-10.8)
[2018-06-23 07:23] LABS: CREATININE 0.5 mg/dL (0.6-1.3)
[2018-06-23] MEDS: LACTOBACILLUS RHAMNOSUS GG 1 EACH CAP PO SCH ×3 (07:30→16:30)
--- NOTE | 2018-06-23 07:30 | NUR ---
RECEIVED ON BED AAOX4. NO OSB NOTED. NO C/O PAIN AT THIS TIME. IV TO LT FORE ARM PATENT AND INTACT. CHEST CLEAR. ABDOMEN SOFT, BOWEL SOUNDS PRESENT. NO EDEMA NOTED. NPO EXCEPT MEDS MAINTAINED FOR PLANNED PROCEDURE. INSTRUCTED PT TO CALL FOE ASSISTANCE, CALL LIGHT WITHIN REACH. PT VERBALIZED UNDERSTANDING. Addendum: 06/23/18 at 1022 by January De Leon RN *NO SOB NOTED* Addendum: 06/23/18 at 1044 by January De Leon RN DIMINISHED AIR ENTRY TO THE BASES, OTHERWISE CLEAR.
[2018-06-23 07:52] LABS: MAGNESIUM 1.7 mg/dL (1.8-2.4); PHOSPHORUS 2.8 mg/dL (2.5-4.9)
[2018-06-23] MEDS ORDERED: methylPREDNISolone SS 40 MG/ML VIAL IVP SCH (08:00)
[2018-06-23] MEDS: NICOTINE TRANSD SYS 14 MG/24 HR PATCH TD SCH (09:00)
[2018-06-23] MEDS ORDERED: SENNA 8.6 MG TAB PO SCH (09:00)
[2018-06-23] MEDS ORDERED: NICOTINE TRANSD SYS 14 MG/24 HR PATCH TD SCH ×3 (09:00)
[2018-06-23] MEDS: CARISOPRODOL 350 MG TAB PO SCH ×2 (09:00→21:13)
[2018-06-23] MEDS: CALCIUM CARBONATE 500 MG TAB PO SCH (09:00)
[2018-06-23] MEDS: PANTOPRAZOLE 40 MG INJ VIAL IVP SCH ×2 (09:20→20:51)
[2018-06-23] MEDS: amLODIPine 5 MG TAB PO SCH (09:21)
[2018-06-23] MEDS: MORPHINE SULFATE 2 MG/ML SYR IVP PRN ×2 (10:04→17:54)
[2018-06-23] MEDS ORDERED: MAG SULF 2000 MG/WATER PREMIX 50 ML IV ONE (11:25)
[2018-06-23] MEDS: MAGNESIUM SULFATE 1GM in DEXTROSE 5% 100 ML PREMIX IV SCH ×2 (13:37→15:28)
--- NOTE | 2018-06-23 13:45 | NUR ---
PT WHEELED TO SURGERY IN STABLE CONDITION. CONSENT SIGNED. PT VERBALIZED UNDERSTANDING.
[2018-06-23] MEDS ORDERED: MIDAZOLAM 2 MG/2 ML VIAL ONE (13:56)
[2018-06-23] MEDS ORDERED: diphenhydrAMINE 50 MG/ML VIAL ONE (13:56)
[2018-06-23] MEDS ORDERED: fentaNYL 0.05 MG/ML VIAL ONE (13:56)
--- NOTE | 2018-06-23 14:40 | NUR ---
PT BACK FROM EGD W/ BIOPSY, KASANDRA OR NURSE GAVE REPORT. PER MD, PT HAS SEVERE DEEP ULCERS, EXTENSIVE WHITE PATCHES IN ESOPHAGUS. TOOK BIOPSY TO R/O TOMAS. PT V/S WITHIN NORMAL RANGE. SPEECH THERAPIST HERE TO PERFORM SWALLOW STUDIES. WILL CONTINUE RELAY REPORT TO MARQUEZ OROZCO.
--- NOTE | 2018-06-23 15:11 | NUR ---
EDITOR IN CHIEF NEWSPAPER NOTE [id number] Bedside swallow evaluation completed following clearance by MARQUEZ Sin. Please refer to EDITOR IN CHIEF NEWSPAPER evaluation for full report. Recommend: -Puree texture + thin liquids, crush meds w/applesauce -Upright at 90 during and 20 min after PO intake -SMALL bites/sips, SLOW rate, ALTERNATE bites/sips 1:1 -Fitting Room Operator consult for pt preferences 2/2 pain (pt stated she does not want anything tomato based, and prefers hot tea vs. coffee). -No further EDITOR IN CHIEF NEWSPAPER intervention indicated. G8996: LUIZ G8997: LUIZ G8998: LUIZ Swallow NOMS 4
[2018-06-23] MEDS: FLUCONAZOLE 200 MG/NS PREMIX 100 ML IV SCH (17:55)
--- NOTE | 2018-06-23 18:15 | NUR ---
PT TOLERATED PUREE DIET FAIRLY.
--- NOTE | 2018-06-23 19:33 | NUR ---
PT AWAKE, ON SCHEDULED BREATHING TREATMENTS. NO SOB NOTED. NO COMPLAINTS MADE. ENDORSED TO NEXT SHIFT NURSE FOR CONTINUITY OF CARE.
--- NOTE | 2018-06-23 19:35 | NUR ---
RECEIVED REPORT FROM DAY SHIFT RN FOR CONTINUITY OF CARE. PT IS A/OX4, ON 2.5L OF O2 VIA NASAL CANNULA. PT IS ABLE TO MAKE NEEDS KNOWN, ABLE TO FOLLOW COMMANDS. RESPIRATIONS EVEN AND UNLABORED AT THE MOMENT. PT SKIN IS INTACT. PT HAS 20G IV TO LEFT FOREARM, ASYMPTOMATIC, INTACT AND PATENT. DISCUSSED PLAN OF CARE WITH PT AND FAMILY, FAMILY VERBALIZED UNDERSTANDING. VITAL SIGNS WITHIN NORMAL LIMITS. PT STABLE, NO SIGNS OF DISTRESS NOTED AT THIS TIME. BED IN LOWEST POSITION, BED ALARM ON. CALL LIGHT WITHIN REACH, WILL CONTINUE TO MONITOR.
[2018-06-23] MEDS: AMITRIPTYLINE 25 MG TAB PO SCH (20:42)
[2018-06-23] MEDS: SENNA 8.6 MG TAB PO SCH (20:54)
[2018-06-23] MEDS: SIMVASTATIN 40 MG TAB PO SCH (20:55)
--- NOTE | 2018-06-23 20:55 | NUR ---
ADMINISTERED SCHEDULED MEDICATIONS, PT TOLERATED WELL. PT REFUSED SENNA AND REQUESTED COLACE INSTEAD. SOMA NOT AVAILABLE, ASKED EDUCATION DIAGNOSTICIAN CHU IF SHE CAN BRING IT. WILL ADMINISTER SOON AVAILABLE/
--- NOTE | 2018-06-23 21:13 | NUR ---
ADMINISTERED SCHEDULED SOMA, PT TOLERATED WELL.
[2018-06-24] VITALS: BP 122/56
--- NOTE | 2018-06-24 | NUR ---
VITAL SIGNS WITHIN NORMAL LIMITS. PT STABLE, NO SIGNS OF DISTRESS NOTED AT THIS TIME. BED IN LOWEST POSITION, BED ALARM ON. CALL LIGHT WITHIN REACH, WILL CONTINUE TO MONITOR.
[2018-06-24] MEDS: MORPHINE SULFATE 2 MG/ML SYR IVP PRN ×4 (01:39→22:29)
--- NOTE | 2018-06-24 02:45 | NUR ---
PT RESTING,STABLE, NO SIGNS OF DISTRESS NOTED AT THIS TIME. BED IN LOWEST POSITION, BED ALARM ON. CALL LIGHT WITHIN REACH, WILL CONTINUE TO MONITOR.
[2018-06-24] MEDS: DEXT 5% /NACL 0.9% 1,000 ML IV SCH (03:39)
[2018-06-24 04:00] VITALS: BP 153/62
[2018-06-24 06:16] LABS: T4 (THYROXINE) 8.2 ug/dL (4.5-12.0)
[2018-06-24] MEDS: ALBUTEROL SULFATE/IPRATROPIU 3 ML SOL IH SCH ×3 (06:40→18:59)
--- NOTE | 2018-06-24 06:40 | NUR ---
PT REFUSED BREATHING TX AT THIS TIME WANTS TO SLEEP HAS NO SIGNS OF DISTRESS NOTED AT THIS TIME
[2018-06-24] MEDS: LACTOBACILLUS RHAMNOSUS GG 1 EACH CAP PO SCH ×3 (07:01→16:02)
--- NOTE | 2018-06-24 07:10 | NUR ---
RECEIVED PT FROM BELLOWS ASSEMBLER NURSE BARB, PT RESTING IN BED, HOB AT 45 DEGREES, ALERT ABLE TO FOLLOW COMMANDS. IV IN RIGHT AC 20 G PATENT, DRESSING INTACT. ON 2.5 L NC. BED IN LOWEST POSITION, CALL LIGHT WITHIN REACH, EXPLAINED PLAN OF CARE. WILL TAKE V/S AND GIVE DUE MEDICATIONS.
[2018-06-24 07:16] LABS: BASOPHILS % (AUTO) 0.2 % (0.0-2.0); EOSINOPHILS % (AUTO) 0.1 % (0.0-4.0); HEMATOCRIT 39.3 % (36-48); HEMOGLOBIN 12.5 g/dL (12.0-16.0); LYMPHOCYTES # (AUTO) 1.3 K/uL (2.5-16.5); LYMPHOCYTES % (AUTO) 21.2 % (20.5-51.1); MEAN CORPUSCULAR HEMOGLOBIN 27 pg (27-31); MEAN CORPUSCULAR HGB CONC 32 g/dL (33-37); MEAN CORPUSCULAR VOLUME 83.1 fL (80-94); MONOCYTES # (AUTO) 0.5 K/uL (0.8-1.0); MONOCYTES % (AUTO) 8.2 % (1.7-9.3); NEUTROPHILS # (AUTO) 4.4 K/uL (1.8-7.7); NEUTROPHILS % (AUTO) 70.3 % (42.2-75.2); PLATELET COUNT (AUTO) 223 K/uL (140-450); RED BLOOD CELL COUNT(AUTO) 4.73 MIL/uL (4.20-5.40); RED CELL DISTRIBUTION WIDTH 16.8 % (11.6-13.7); WHITE BLOOD COUNT (AUTO) 6.2 K/uL (4.8-10.8)
--- NOTE | 2018-06-24 07:25 | NUR ---
ENDORSED PT TO DAY SHIFT RN FOR CONTINUITY OF CARE. PT IN STABLE CONDITION.
[2018-06-24 07:54] LABS: CREATININE 0.4 mg/dL (0.6-1.3)
[2018-06-24 08:00] VITALS: BP 146/63
--- NOTE | 2018-06-24 08:00 | NUR ---
AMEND PT ON 2.5 L NC AT 0800 NOT RA,
[2018-06-24 08:03] LABS: MAGNESIUM 2.2 mg/dL (1.8-2.4); PHOSPHORUS 2.4 mg/dL (2.5-4.9)
[2018-06-24] MEDS: amLODIPine 5 MG TAB PO SCH (09:33)
[2018-06-24] MEDS: CALCIUM CARBONATE 500 MG TAB PO SCH (09:33)
[2018-06-24] MEDS: PANTOPRAZOLE 40 MG INJ VIAL IVP SCH ×2 (09:34→20:51)
[2018-06-24] MEDS: SENNA 8.6 MG TAB PO SCH ×2 (09:39→20:55)
[2018-06-24] MEDS: CARISOPRODOL 350 MG TAB PO SCH ×2 (10:19→20:52)
[2018-06-24] MEDS: NICOTINE TRANSD SYS 14 MG/24 HR PATCH TD SCH (10:20)
[2018-06-24] MEDS ORDERED: SODIUM PHOS / POTASSIUM PHOS 1 PKT PDR PO SCH ×2 (11:00→15:00)
[2018-06-24] MEDS ORDERED: POTASSIUM CHLORIDE 10 MEQ TABER PO SCH (11:00)
[2018-06-24 12:00] VITALS: BP 138/70
[2018-06-24] MEDS ORDERED: ALBUTEROL 0.083% 2.5 MG/3 ML NEBU INH PRN (13:35)
[2018-06-24 16:00] VITALS: BP 144/64
[2018-06-24] MEDS: FLUCONAZOLE 200 MG/NS PREMIX 100 ML IV SCH (16:01)
--- NOTE | 2018-06-24 19:20 | NUR ---
ENDORSED PT TO SUPERVISOR LIQUEFACTION NURSE LAINEY DAY.
[2018-06-24 20:00] VITALS: BP 139/65
[2018-06-24] MEDS: SIMVASTATIN 40 MG TAB PO SCH (20:51)
[2018-06-24] MEDS: AMITRIPTYLINE 50 MG TAB PO SCH (20:51)
--- NOTE | 2018-06-24 20:55 | NUR ---
ADMINISTERED SCHEDULED MEDICATIONS ORDERED, PT TOLERATED WELL. PT REQUESTED COLACE INSTEAD OF SENNA.
[2018-06-24] MEDS ORDERED: FLUCONAZOLE 200 MG/NS PREMIX 100 ML IV SCH (21:50)
[2018-06-25] VITALS: BP 128/79
--- NOTE | 2018-06-25 02:15 | NUR ---
PT STABLE, NO SIGNS OF DISTRESS NOTED AT THIS TIME. BED IN LOWEST POSITION, BED ALARM ON. CALL LIGHT WITHIN REACH, WILL CONTINUE TO MONITOR.
[2018-06-25 04:00] VITALS: BP 125/73
[2018-06-25] MEDS: LACTOBACILLUS RHAMNOSUS GG 1 EACH CAP PO SCH ×3 (06:37→15:37)
--- NOTE | 2018-06-25 06:37 | NUR ---
ADMINISTERED SCHEDULED MEDICATION, PT TOLERATED WELL.
[2018-06-25] MEDS: ALBUTEROL SULFATE/IPRATROPIU 3 ML SOL IH SCH ×3 (07:08→19:02)
--- NOTE | 2018-06-25 07:18 | NUR ---
AWAKE AND ALERT RESPONSIVE PATIENT C/O OF NASAL DRYNESS CORE CARRIER TO ADD HUMIDIFIER
--- NOTE | 2018-06-25 07:28 | NUR ---
ENDORSED PT TO DAY SHIFT RN FOR CONTINUITY OF CARE. PT IS IN STABLE CONDITION.
--- NOTE | 2018-06-25 07:35 | NUR ---
RECEIVED PT FROM SANITATION ASSOCIATE NURSE, PT IS AWAKE AND RT IS ON THE BEDSIDE. PT IS HAVING A BREATHING TREATMENT AT THIS TIME AND IS TOLERATING THE TREATMENT WELL. SIDE RAILS ARE UP AND BED IN LOW POSITION, AND CALL LIGHT WITHIN REACH. FALL PRECAUTION INITIATED. PT HAS AN IV LINE ON THE LEFT FOREARM G. 22, INTACT AND ON SALINE LOCK. NO SIGN OF DISTRESS NOTED ON THE PT AND WILL CONTINUE TO MONITOR.
[2018-06-25 07:36] LABS: BASOPHILS % (AUTO) 0.1 % (0.0-2.0); EOSINOPHILS % (AUTO) 0.5 % (0.0-4.0); HEMOGLOBIN 13.2 g/dL (12.0-16.0); LYMPHOCYTES # (AUTO) 1.5 K/uL (2.5-16.5); LYMPHOCYTES % (AUTO) 23.4 % (20.5-51.1); MEAN CORPUSCULAR HEMOGLOBIN 27 pg (27-31); MEAN CORPUSCULAR HGB CONC 32 g/dL (33-37); MEAN CORPUSCULAR VOLUME 83.1 fL (80-94); MONOCYTES # (AUTO) 0.5 K/uL (0.8-1.0); MONOCYTES % (AUTO) 8.5 % (1.7-9.3); NEUTROPHILS # (AUTO) 4.2 K/uL (1.8-7.7); NEUTROPHILS % (AUTO) 67.5 % (42.2-75.2); PLATELET COUNT (AUTO) 244 K/uL (140-450); RED BLOOD CELL COUNT(AUTO) 4.93 MIL/uL (4.20-5.40); WHITE BLOOD COUNT (AUTO) 6.2 K/uL (4.8-10.8)
--- NOTE | 2018-06-25 07:50 | NUR ---
PT IS AWAKE AND SEATED ON THE BED HAVING HER BREAKFAST. PT IS TOLERATING THE FOOD WELL, VITAL SIGNS TAKEN AND IS STABLE AND NO SIGN OF DISTRESS NOTED. WILL CONTINUE TO MONITOR PT.
[2018-06-25 08:00] VITALS: BP 130/69
--- NOTE | 2018-06-25 08:10 | NUR ---
DR. LIZ AND THE RESIDENT DOCTORS CAME TO THE PT'S ROOM AND SPOKE TO THE PT AND PT VERBALIZED UNDERSTANDING. NO SIGN OF DISTRESS NOTED ON THE PT AT THIS TIME. WILL CONTINUE TO MONITOR.
[2018-06-25 08:22] LABS: MAGNESIUM 1.7 mg/dL (1.8-2.4); PHOSPHORUS 2.7 mg/dL (2.5-4.9)
[2018-06-25] MEDS: PANTOPRAZOLE 40 MG INJ VIAL IVP SCH ×2 (08:31→21:26)
[2018-06-25 08:32] LABS: ANION GAP 6.6 (8-16); CARBON DIOXIDE 39.3 mmol/L (21-32); CREATININE 0.4 mg/dL (0.6-1.3)
[2018-06-25] MEDS: CALCIUM CARBONATE 500 MG TAB PO SCH (08:32)
[2018-06-25] MEDS: CARISOPRODOL 350 MG TAB PO SCH (08:32)
[2018-06-25] MEDS: amLODIPine 5 MG TAB PO SCH (08:32)
[2018-06-25] MEDS: SENNA 8.6 MG TAB PO SCH (08:32)
[2018-06-25] MEDS: NICOTINE TRANSD SYS 14 MG/24 HR PATCH TD SCH (08:33)
[2018-06-25] MEDS: MORPHINE SULFATE 2 MG/ML SYR IVP PRN (08:34)
--- NOTE | 2018-06-25 08:36 | NUR ---
BESSY FROM LAB CALLED AND REPORTED THE PT'S POTASSIUM LEVEL OF 2.9, ACKNOWLEDGED AND WILL INFORM THE MD.
[2018-06-25 08:37] LABS: POTASSIUM 2.9 mmol/L (3.5-5.1)
--- NOTE | 2018-06-25 08:45 | NUR ---
INFORMED DR. CLARK OF THE PT'S POTASSIUM LEVEL OF 2.9 THAT WAS REPORTED BY THE HONING MACHINE TRY OUT SETTER, BESSY. DR. CLARK ACKNOWLEDGED AND SAID THAT HE WILL PLACE AN ORDER FOR THE PT.
--- NOTE | 2018-06-25 08:57 | NUR ---
PT IS AWAKE AND HAD JUST GONE TO THE BATHROOM, ASSISTED BACK TO BED AND BP WAS CHECKED PER PARAMETER PRIOR TO MEDICATION ADMINISTRATION. MEDICATIONS GIVEN TO THE PT AND PT TOLERATED IT. NO SIGN OF DISTRESS NOTED. ASPIRATION PRECAUTION INITIATED. WILL CONTINUE TO MONITOR PT.
[2018-06-25] MEDS ORDERED: POTASSIUM CHLORIDE 10 MEQ TABER PO SCH ×2 (09:00→21:00)
--- NOTE | 2018-06-25 10:59 | NUR ---
DR. PECK CAME TO THE PT'S ROOM AND SPOKE TO THE PT. ADVISED THE PT TO SEE HIM IN THE CLINIC FOPR FOLLOW UP ONCE DISCHARGE,AND HANDED HIS CALLING CARD TO THE PT. PT VERBALIZED UNDERSTANDING OF WHAT DR. PECK TOLD HER. WILL MONITOR PT.
[2018-06-25] MEDS ORDERED: MAGNESIUM OXIDE 400 MG TAB PO SCH (11:00)
--- NOTE | 2018-06-25 11:05 | NUR ---
DR. PECK SAID TO NOT GIVE THE PT K-DUR TABLET BECAUSE THE MEDICATION CAUSES ULCER AND WILL AGGRAVATE THE PT'S ESOPHAGEAL PAIN. ACKNOWLEDGED WHAT DR. PECK SAID AND WILL FOLLOW THROUGH WITH DR. CLARK.
[2018-06-25 12:00] VITALS: BP 138/75
--- NOTE | 2018-06-25 13:14 | NUR ---
Chi HALL,SRT GIVING HHN THERAPY AND DOCUMENTING Pito LARA, TOWER ATTENDANT
--- NOTE | 2018-06-25 13:15 | NUR ---
PT IS HAVING BREATHING TREATMENT AT THIS TIME AND TOLERATING IT.
--- NOTE | 2018-06-25 15:00 | NUR ---
PT WAS ASSISTED TO THE BATHROOM, PT VOMITED AND IT SPILLED ON THE GOWN. PT MADE A BOWEL MOVEMENT ALSO AND WAS ASSISTED IN CLEANING UP.YELLOW GOWN WAS CHANGED AND ASSISTED BACK TO BED AND MADE COMFORTABLE. NO OTHER SIGN OF DISCOMFORT NOTED. WILL ADMINISTER MEDICATION.
[2018-06-25] MEDS: FLUCONAZOLE 200 MG/NS PREMIX 100 ML IV SCH (15:16)
--- NOTE | 2018-06-25 15:40 | NUR ---
PT IS AWAKE AND SEATED ON THE BED, MEDICATIONS GIVEN VIA IVPB, IV PUSH AND ORALLY AND PT TOLERATED IT. NO SIGN OF DISTRESS NOTED ON THE PT. WILL CONTINUE TO MONITOR.
[2018-06-25 16:00] VITALS: BP 116/70
--- NOTE | 2018-06-25 16:25 | NUR ---
06/25/18 RD FOLLOW UP COMPLETED PLEASE REFER TO NUTRITION PROGRESS NOTE UNDER CARE ACTIVITY FOR ESTIMATED NUTRITION NEEDS. RD RECOMMENDATIONS: 1. CONTINUE WITH PUREE DIET TOLERATED 2. PT WILL TRIAL ENSURE CLEAR; RD TO FOLLOW-UP 3. PROVIDED UNDERWEIGHT NUTRITION EDUCATION 4. CONTINUE TO MONITOR WEIGHT 5. CONTINUE TO ENCOURAGE INCREASED PO INTAKE 6. RD WILL F/U 2-3 DAYS; HIGH RISK JEAN PIERRE REYEZ RD
--- NOTE | 2018-06-25 18:11 | NUR ---
ACKNOWLEDGED AN ORDER FROM DR. DILL FOR A TRANSFER OF THE PT TO [facility]. WILL CARRY OUT ORDER.
--- NOTE | 2018-06-25 18:15 | NUR ---
PT'S HEART MONITOR WAS REMOVED AND PLACED IN THE BASKET BIN.
[2018-06-25] MEDS: HYDROcodone/APAP 7.5/325 MG 1 TAB PO PRN (18:31)
--- NOTE | 2018-06-25 19:42 | NUR ---
ENDORSED PT TO ARC TRIMMER NURSE FOR CONTINUITY OF CARE. PT IS STABLE AT THIS TIME.
--- NOTE | 2018-06-25 19:43 | NUR ---
RECEIVED PT FROM WALTER ZAYAS PT IS AAOX4 AMBULATORY ON 2.5 LTS VIA NCIV ON LEFT FA WILL BE DC AND A NEW I WILL BE INSERTED ON RT FA GAUGE #22 PT HAS A CHRONIC COUGH DENIES ANY PAIN AT THIS TIME INITIAL ASSESSMENT DONE
[2018-06-25 20:00] VITALS: BP 141/86
[2018-06-25] MEDS: POTASSIUM CHLORIDE 20% 40 MEQ/15 ML UDC PO SCH (21:27)
[2018-06-25] MEDS: AMITRIPTYLINE 50 MG TAB PO SCH (21:27)
[2018-06-25] MEDS: SIMVASTATIN 40 MG TAB PO SCH (21:28)
--- NOTE | 2018-06-25 21:30 | NUR ---
A NEW IV IS INSERTED ON RT FA GAUGE # 22
[2018-06-26] VITALS: BP 126/71
--- NOTE | 2018-06-26 00:09 | NUR ---
PT ON 02 2.5 LTS VIA NC NOT SOB NOTED VOIDING WELL HL ON RT FA PATENT REMAINSTABLE AT THIS TIME
--- NOTE | 2018-06-26 04:00 | NUR ---
SPONGE BATH GIVEN LINEN CHANGED PT REMAIN STABLE DENIES ANY PAIN
[2018-06-26] MEDS: LACTOBACILLUS RHAMNOSUS GG 1 EACH CAP PO SCH ×3 (06:53→15:59)
--- NOTE | 2018-06-26 06:54 | NUR ---
PT AWAKE VOIDING WELL DENIES ANY DISCOMFORT AT THIS TIME
--- NOTE | 2018-06-26 07:10 | NUR ---
RECEIVED BEDSIDE REPORT FROM RN TIRSO, PT RESTING IN BED, ON 2.5 L NC, ABLE TO MAKE NEEDS KNOWN AND FOLLOW COMMANDS. IV SL ON RIGHT ARM, 22 G, SECURED WITH TAPE, UPDATED BOARD, EXPLAINED PLAN OF CARE, BED IN LOWEST POSITION, CALL LIGHT WITHIN REACH, WILL CONTINUE TO MONITOR.
[2018-06-26 07:22] LABS: BASOPHILS % (AUTO) 0.2 % (0.0-2.0); EOSINOPHILS # (AUTO) 0.2 K/uL (0-0.4); EOSINOPHILS % (AUTO) 2.5 % (0.0-4.0); HEMATOCRIT 39.9 % (36-48); HEMOGLOBIN 12.7 g/dL (12.0-16.0); LYMPHOCYTES # (AUTO) 1.6 K/uL (2.5-16.5); MEAN CORPUSCULAR HEMOGLOBIN 26 pg (27-31); MEAN CORPUSCULAR HGB CONC 32 g/dL (33-37); MEAN CORPUSCULAR VOLUME 83.3 fL (80-94); MONOCYTES # (AUTO) 0.5 K/uL (0.8-1.0); MONOCYTES % (AUTO) 8.2 % (1.7-9.3); NEUTROPHILS # (AUTO) 3.7 K/uL (1.8-7.7); NEUTROPHILS % (AUTO) 62.1 % (42.2-75.2); PLATELET COUNT (AUTO) 223 K/uL (140-450); RED BLOOD CELL COUNT(AUTO) 4.79 MIL/uL (4.20-5.40); WHITE BLOOD COUNT (AUTO) 5.9 K/uL (4.8-10.8)
[2018-06-26] MEDS: ALBUTEROL SULFATE/IPRATROPIU 3 ML SOL IH SCH ×2 (07:32→12:51)
[2018-06-26 07:40] LABS: ANION GAP 7.2 (8-16); CARBON DIOXIDE 35.9 mmol/L (21-32); CREATININE 0.4 mg/dL (0.6-1.3); POTASSIUM 4.1 mmol/L (3.5-5.1)
[2018-06-26 07:47] LABS: MAGNESIUM 2.1 mg/dL (1.8-2.4); PHOSPHORUS 3.3 mg/dL (2.5-4.9)
[2018-06-26 08:00] VITALS: BP 123/76
[2018-06-26] MEDS: amLODIPine 5 MG TAB PO SCH (09:39)
[2018-06-26] MEDS: HYDROcodone/APAP 7.5/325 MG 1 TAB PO PRN ×2 (09:39→15:59)
[2018-06-26] MEDS: CALCIUM CARBONATE 500 MG TAB PO SCH (09:39)
[2018-06-26] MEDS: POTASSIUM CHLORIDE 20% 40 MEQ/15 ML UDC PO SCH (09:40)
[2018-06-26] MEDS: NICOTINE TRANSD SYS 14 MG/24 HR PATCH TD SCH (09:40)
[2018-06-26] MEDS: PANTOPRAZOLE 40 MG INJ VIAL IVP SCH (09:40)
--- NOTE | 2018-06-26 09:59 | NUR ---
PT C/O PAIN IN ABDOMINAL AREA 06/27, WILL MEDICATE ACCORDING TO DRS ORDER.
[2018-06-26] MEDS ORDERED: SUCR1TAB35 PO (10:27)
[2018-06-26] MEDS ORDERED: FLUC200T PO (10:27)
--- NOTE | 2018-06-26 10:42 | NUR ---
PT RESTING IN BED, NO SIGNS OF ACUTE DISTRESS, CALL LIGHT WITHIN REACH, WILL CONTINUE TO MONITOR.
[2018-06-26 11:17] VITALS: BP 123/76
--- NOTE | 2018-06-26 12:00 | NUR ---
PT RESTING IN NO SIGNS OF DISTRESS, CALL LIGHT WITHIN REACH, WILL CONTINUE TO MONITOR.
[2018-06-26] MEDS ORDERED: PHEN30SP10 MM (12:03)
[2018-06-26] MEDS ORDERED: POTA20PA PO (13:23)
[2018-06-26] MEDS ORDERED: FLUT1BLS3 IH (13:59)
[2018-06-26] MEDS: FLUCONAZOLE 200 MG/NS PREMIX 100 ML IV SCH (15:58)
--- NOTE | 2018-06-26 15:59 | NUR ---
PT IN PAIN WILL MEDICATE ACCORDING TO DRS ORDER.
[2018-06-26 16:00] VITALS: BP 120/70
[2018-06-26] MEDS ORDERED: PNEUMOCOCCAL VACCINE 23 MCG/0.5 ML VIAL IMVAC SCH (16:30)
--- NOTE | 2018-06-26 16:31 | NUR ---
P.T. NOTES P.T. EVAL ORDER CANCELLED PER MD.
--- NOTE | 2018-06-26 16:39 | NUR ---
PT REQUESTED TO HAVE PNEUMONIA VACCINE, WILL MEDICATE ACCORDING TO HEVER MEZA.
--- NOTE | 2018-06-26 17:56 | NUR ---
D/C IV IN RIGHT ARM CATH INTACT. CUT WRIST BANDS, PT LEFT VIA WC TO PRIVATE VEHICLE.
== END 2018-06-26 17:56 | disposition home or self-care (01) | DRG 380 ==
LOC: MED 16:46 → MTU 18:13
PROVIDERS: ADMIT General Practice; ATTEND General Practice
PROC: 0DB58ZX Excision of Esophagus, Via Natural or Artificial Opening Endoscopic, Diagnostic (ICD-10-PCS; principal; 2018-06-23 14:00)
DX: K22.10 Ulcer of esophagus without bleeding (principal); E43 Unspecified severe protein-calorie malnutrition; I50.41 Acute combined systolic (congestive) and diastolic (congestive) heart failure; J18.9 Pneumonia, unspecified organism; J44.1 Chronic obstructive pulmonary disease with (acute) exacerbation; E87.0 Hyperosmolality and hypernatremia; F11.20 Opioid dependence, uncomplicated; R06.03 Acute respiratory distress; E87.6 Hypokalemia; E86.0 Dehydration; E83.42 Hypomagnesemia; I11.0 Hypertensive heart disease with heart failure; E05.90 Thyrotoxicosis, unspecified without thyrotoxic crisis or storm; Z72.0 Tobacco use; K27.7 Chronic peptic ulcer, site unspecified, without hemorrhage or perforation; Z90.49 Acquired absence of other specified parts of digestive tract
CPT/HCPCS: 36415; 71045; 80048; 80053; 81001; 82009; 82553; 83036; 83605; 83690; 83735; 83880; 84100; 84436; 84443; 84479; 84484; 84550; 85025; 85610; 85730; 87040; 87081; 87086; 88305; 88312; 90732; 92610; 93005; 94640; 96365; 96367; 96375; 97799; 99285; C1758; C9113; J0456; J1200; J1450; J2250; J2270; J2405; J2543; J2920; J2930; J3010; J3475; J3480; J7030; J7042; J7613; J7620; J7626; J7644; Q0092; Q9967

== ENCOUNTER 2019-06-05 00:49 | Inpatient (IN) | payer OTHER, MEDICARE ==
[~2019-06-05] VITALS: Ht 170.2 cm; Wt 51.7 kg
[~2019-06-05 00:49] MED LIST changes: +ALBU-118 IH; +AMLO5TAB PO; -BUDE1AER2 IH; -CEFU-18 PO; -DICL100T5 PO; +FLUC200T PO; +FLUT1BLS3 IH; -FURO-570 PO; -LACT1CAP PO; -METO100T23 PO; -MULT1TAB12 PO; +OMEP-113 PO; -OMEP20EC6 PO; +POTA20PA PO; -PRED10TA5 PO; -PRED20TA5 PO; -ROBAC PO; +SIMV40TA1 PO; -SPIMDI INH; -[UNRECOGNIZED DRUG - CODE] PO; -[UNRECOGNIZED DRUG - CODE] PO
--- NOTE | 2019-06-05 00:49 | NUR ---
PT BIBA BLS TO ER BED 11
[2019-06-05 00:50] VITALS: BP 165/80
--- NOTE | 2019-06-05 00:50 | NUR ---
PATIENT BIBA FROM HOME, C/O POSSIBLE FOREIGN BODY IN THROAT S/P FOOD INGESTION. PATIENT GCS 15, AAOX4. PATIENT BREATHING IS EVEN AND UNLABORED, EQUAL RISE AND FALL OF CHEST. PATIENT SA02 90-93% ON 3L NC. PATIENT STATES SHE IS ON OXYGEN AT HOME D/T EMPHYSEMA. PATIENT IS ABLE TO SPEAK IN FULL COMPLETE SENTENCES. NO ACUTE DISTRESS NOTED. DR VACA MADE AWARE. WILL CONTINUE TO MONITOR
--- NOTE | 2019-06-05 02:00 | NUR ---
SAIMA HENSON- FAILED, IMMEDIATE GAG REFLEX
--- NOTE | 2019-06-05 02:00 | NUR ---
DR VACA MADE AWARE
[2019-06-05] MEDS ORDERED: GLUCAGON 1 MG VIAL IVP ONE ×2 (02:05→03:05)
[2019-06-05 02:21] LABS: BASOPHILS % (AUTO) 0.3 % (0.0-2.0); EOSINOPHILS # (AUTO) 0.1 K/uL (0-0.4); EOSINOPHILS % (AUTO) 1.1 % (0.0-4.0); HEMATOCRIT 37.9 % (36-48); HEMOGLOBIN 12.1 g/dL (12.0-16.0); LYMPHOCYTES # (AUTO) 1.6 K/uL (2.5-16.5); LYMPHOCYTES % (AUTO) 20.9 % (20.5-51.1); MEAN CORPUSCULAR HEMOGLOBIN 27 pg (27-31); MEAN CORPUSCULAR HGB CONC 32 g/dL (33-37); MONOCYTES # (AUTO) 0.7 K/uL (0.8-1.0); MONOCYTES % (AUTO) 8.9 % (1.7-9.3); NEUTROPHILS # (AUTO) 5.2 K/uL (1.8-7.7); NEUTROPHILS % (AUTO) 68.8 % (42.2-75.2); PLATELET COUNT (AUTO) 217 K/uL (140-450); RED BLOOD CELL COUNT(AUTO) 4.46 MIL/uL (4.20-5.40); RED CELL DISTRIBUTION WIDTH 18.2 % (11.6-13.7); WHITE BLOOD COUNT (AUTO) 7.6 K/uL (4.8-10.8)
--- NOTE | 2019-06-05 02:56 | NUR ---
SAIMA HENSON AGAIN- FAILED + GAG REFLEX- DR VACA MADE AWARE
[2019-06-05] MEDS ORDERED: ONDANSETRON 4 MG/2 ML VIAL IVP ONE (03:00)
[2019-06-05 03:06] LABS: ANION GAP 9.2 (8-16); CARBON DIOXIDE 38.3 mmol/L (21-32); CREATININE 0.5 mg/dL (0.6-1.3); POTASSIUM 3.5 mmol/L (3.5-5.1)
[2019-06-05] MEDS ORDERED: ACETAMINOPHEN 325 MG TAB PO PRN (03:10)
[2019-06-05] MEDS ORDERED: ONDANSETRON 4 MG/2 ML VIAL IM/IVP PRN (03:10)
[2019-06-05 03:12] LABS: ALBUMIN 3.3 g/dL (3.4-5.0); TOTAL BILIRUBIN 0.4 mg/dL (0.0-1.0)
--- NOTE | 2019-06-05 03:30 | NUR ---
Patient will be admitted to care of DR LIZ. Admited to MS. Will go to room 122B. Belongings list completed. Report to DELL.
--- NOTE | 2019-06-05 03:30 | NUR ---
ADMITTED 69 YEARS OLD FEMALE FROM ER VIA RNEY IN 121B, CC: FOREIGN BODY. DX: TRACHEA FOREIGN BODY. SEE NURSING ADMISSION AND HISTORY. ORIENTED TO ROOM AND UNIT ROUTINES. CARE BOARD UPDATED. PLAN OF CARE DISCUSSED WITH PATIENT AT BEDSIDE, VERBALIZED UNDERSTANDING WELL. CALL LIGHT WITHIN REACH.
[2019-06-05 03:36] LABS: PROTHROMBIN TIME 9.3 secs (10.8-13.4)
[2019-06-05 03:37] LABS: CHOL/HDL RATIO 2.4 (1-4.5); MAGNESIUM 1.8 mg/dL (1.8-2.4); PHOSPHORUS 3.6 mg/dL (2.5-4.9); THYROID STIMULATING HORMONE 3.89 uIU/mL (0.34-3.74)
[2019-06-05 04:30] VITALS: BP 186/82
[2019-06-05] MEDS ORDERED: ALBUTEROL SULFATE/IPRATROPIU 3 ML SOL IH SCH (04:30)
[2019-06-05] MEDS: NACL 0.9% 1,000 ML IV SCH ×2 (04:56→18:47)
[2019-06-05] MEDS ORDERED: amLODIPine 5 MG TAB PO SCH (05:00)
[2019-06-05] MEDS ORDERED: hydrALAZINE 20 MG/ML VIAL IVP SCH (05:00)
[2019-06-05] MEDS: ALBUTEROL SULFATE/IPRATROPIU 3 ML SOL IH PRN ×2 (05:36→11:42)
[2019-06-05] MEDS: METOCLOPRAMIDE 10 MG TAB PO SCH ×3 (06:38→16:30)
[2019-06-05] MEDS ORDERED: AMLO10TA PO (06:49)
[2019-06-05] MEDS ORDERED: PANT40EC PO (06:50)
[2019-06-05] MEDS ORDERED: SPIR50TA PO (06:51)
[2019-06-05] MEDS ORDERED: GABA400C PO (06:52)
[2019-06-05] MEDS ORDERED: METO-485 PO (06:53)
[2019-06-05] MEDS ORDERED: ELA10 PO (06:53)
--- NOTE | 2019-06-05 07:13 | NUR ---
ENDORSED CARE AT BEDSIDE WITH LEON ZAYAS, PATIENT IN STABLE CONDITION.
--- NOTE | 2019-06-05 07:14 | NUR ---
RECEIVED REPORT FROM OUTER DIAMETER TECHNICIAN NURSE MANNIE FOR CONTINUITY OF CARE. PT IN STABLE CONDITION. RESPIRATIONS EVEN AND UNLABORED. IV INTACT AND PATENT. SAFETY MEASURES IN PLACE. CALL LIGHT AT BEDSIDE. BED IN LOW POSITION. WILL CONTINUE TO MONITOR.
[2019-06-05 08:00] VITALS: BP 142/60
[2019-06-05] MEDS ORDERED: ALBUTEROL HFA MDI 90 MCG/ACTUATION 8 GM INH SCH (08:00)
[2019-06-05] MEDS: ASCORBIC ACID 500 MG TAB PO SCH (09:00)
[2019-06-05] MEDS: FOLIC ACID 1 MG TAB PO SCH (09:00)
[2019-06-05] MEDS: VITAMIN D 400 IU TAB PO SCH (09:00)
[2019-06-05] MEDS: amLODIPine 5 MG TAB PO SCH (09:00)
[2019-06-05] MEDS: SPIRONOLACTONE 25 MG TAB PO SCH (09:00)
[2019-06-05] MEDS ORDERED: GABAPENTIN 100 MG CAP PO SCH (09:00)
[2019-06-05] MEDS: GABAPENTIN 300 MG CAP PO SCH ×2 (09:00→21:00)
[2019-06-05] MEDS ORDERED: PANTOPRAZOLE 40 MG TABEC PO SCH (09:00)
--- NOTE | 2019-06-05 09:01 | NUR ---
PT SITTING IN BED IN STABLE CONDITION. RESPIRATIONS EVEN AND UNLABORED. CALL LIGHT AT BEDSIDE. BED IN LOW POSITION. BED ALARM ON. WILL CONTINUE TO MONITOR.
[2019-06-05 10:57] LABS: APPEARANCE,URINE CLEAR (CLEAR); BILIRUBIN,URINE NEGATIVE (NEGATIVE); BLOOD, URINE NEGATIVE (NEGATIVE); COLOR,URINE YELLOW (YELLOW); LEUKOCYTE ESTERASE ,URINE NEGATIVE (NEGATIVE); NITRITE, URINE NEGATIVE (NEGATIVE); UGLUCOSE NEGATIVE (NEGATIVE)
[2019-06-05 11:02] LABS: BARBITURATE, URINE NEG. ng/ml (NEG <=200); BENZODIAZEPINE, URINE NEG. ng/mL (NEG <=200); CANNABINOID, URINE NEG. ng/mL (NEG <=50); COCAINE, URINE NEG. ng/mL (NEG <=300); OPIATE, URINE NEG. ng/mL (NEG <=2000); PHENCYCLIDINE SCREEN,URINE NEG. ng/mL (NEG <=25)
--- NOTE | 2019-06-05 11:16 | NUR ---
PT USING BATHROOM WILL RETURN FOR PRN BREATHING TX. NURSE MADE AWARE.
--- NOTE | 2019-06-05 11:30 | NUR ---
PT SITTING IN BED WITH FAMILY AT BEDSIDE IN STABLE CONDITION. RESPIRATIONS EVEN AND UNLABORED. CALL LIGHT AT BEDSIDE. BED IN LOW POSITION. BED ALARM ON. WILL CONTINUE TO MONITOR.
[2019-06-05 12:00] VITALS: BP 136/64
--- NOTE | 2019-06-05 12:46 | NUR ---
CALLED CT FOR IMAGING ORDER PLACED.
[2019-06-05] MEDS: KETOROLAC 30 MG/ML VIAL IVP PRN ×2 (12:51→18:53)
--- NOTE | 2019-06-05 13:01 | NUR ---
ASSISTED TO RESTROOM WITH O2 3.5L VIA NC. PT TOLERATED WELL. RESPIRATIONS EVEN AND UNLABORED. CALL LIGHT AT BEDSIDE. BED IN LOW POSITION. BED ALARM ON. WILL CONTINUE TO MONITOR.
--- NOTE | 2019-06-05 14:00 | NUR ---
OFF UNIT FOR CT CHEST W/O CONTRAST AND CT SOFT TISSUE NECK W/O CONTRAST. PT IN STABLE CONDITION.
--- NOTE | 2019-06-05 14:45 | NUR ---
PT BACK ON UNIT AFTER CT SCAN. PT IN STABLE CONDITION. RESPIRATIONS EVEN AND UNLABORED. CALL LIGHT AT BEDSIDE. BED IN LOW POSITION. BED ALARM ON. WILL CONTINUE TO MONITOR.
[2019-06-05 16:00] VITALS: BP 138/62
--- NOTE | 2019-06-05 16:16 | NUR ---
PT SLEEPING AT THIS TIME. RESPIRATIONS EVEN AND UNLABORED. CALL LIGHT AT BEDSIDE. BED IN LOW POSITION. BED ALARM ON. WILL CONTINUE TO MONITOR.
--- NOTE | 2019-06-05 18:27 | NUR ---
ALONZO MONTAÑO TORDean PROTONIX 40MG IVP BID. ENDOSCOPY 06/06/2019 AT 0945.
--- NOTE | 2019-06-05 19:19 | NUR ---
GAVE REPORT TO DOCUMENT MANAGEMENT SPECIALIST NURSE PREMA FOR CONTINUITY OF CARE. PT IN STABLE CONDITION.
--- NOTE | 2019-06-05 19:20 | NUR ---
Received endorsement from AM shift RN; patient A/Ox4, able to make needs known, Georgian speaking, on bedrest. Introduced self, updated board. No SOB or distress noted, on O2 3.5 LPM via nasal cannula. IV site on left hand, 24 gauge, running IVF at 60mL/hr. Skin intact. Bed in the lowest position, call light within reach. Initial assessment done. Will continue to monitor.
--- NOTE | 2019-06-05 20:10 | NUR ---
Vitals taken, no SOB or distress noted.
[2019-06-05] MEDS ORDERED: AMITRIPTYLINE 10 MG TAB PO SCH (21:00)
[2019-06-05] MEDS ORDERED: SIMVASTATIN 40 MG TAB PO SCH (21:00)
[2019-06-05] MEDS ORDERED: FLUCONAZOLE 200 MG/NS PREMIX 100 ML IV SCH (21:00)
[2019-06-05] MEDS: PANTOPRAZOLE 40 MG INJ VIAL IVP SCH (21:16)
--- NOTE | 2019-06-05 21:35 | NUR ---
Due meds given, tolerated well.
--- NOTE | 2019-06-05 23:50 | NUR ---
Vitals taken, no distress noted. Patient asleep, visible chest rise and fall noted.
[2019-06-06] VITALS: BP 132/69
--- NOTE | 2019-06-06 00:20 | NUR ---
IV site infiltrated; new IV site on right forearm, 22 gauge, flushed, intact and patent with no s/sx of swelling or redness.
--- NOTE | 2019-06-06 01:55 | NUR ---
Rounds done; patient asleep, eyes closed, visible chest rise and fall noted.
--- NOTE | 2019-06-06 02:00 | NUR ---
Patient verbalized obstruction in trachea was "gone, not there anymore". Asked if she can have some water; water given and patient stated she had no problems and no pain when swallowing.
[2019-06-06] MEDS: KETOROLAC 30 MG/ML VIAL IVP PRN ×2 (02:15→17:13)
--- NOTE | 2019-06-06 04:26 | NUR ---
Vitals taken, no SOB or distress noted.
[2019-06-06] MEDS: METOCLOPRAMIDE 10 MG TAB PO SCH ×3 (06:11→17:03)
[2019-06-06 06:36] LABS: HEMATOCRIT 38.5 % (36-48); HEMOGLOBIN 12.3 g/dL (12.0-16.0); MEAN CORPUSCULAR HEMOGLOBIN 27 pg (27-31); MEAN CORPUSCULAR HGB CONC 32 g/dL (33-37); MEAN CORPUSCULAR VOLUME 85.4 fL (80-94); PLATELET COUNT (AUTO) 208 K/uL (140-450)
[2019-06-06 06:55] LABS: PROTHROMBIN TIME 9.7 secs (10.8-13.4)
[2019-06-06 06:58] LABS: CREATININE 0.5 mg/dL (0.6-1.3); TOTAL BILIRUBIN 1.2 mg/dL (0.0-1.0)
[2019-06-06 07:03] LABS: EOSINOPHILS % (MANUAL) 1 % (0-4); LYMPHOCYTES % (MANUAL) 9 % (20-46); MONOCYTES % (MANUAL) 5 % (5-12)
--- NOTE | 2019-06-06 07:19 | NUR ---
RECEIVED BEDSIDE REPORT FROM RN MAC. PT STABLE, AWAKE, ALERT AND ORIENTED X4. NO SIGNS OF DISTRESS NOTED. ON 3.5L O2 VIA NC. DENIES PAIN OR SOB. NO REDNESS, SWELLING, OR INFLAMMATION NOTED ON IV SITE. CALL JAVIER WITHIN REACH. BED IN LOWEST POSITION. SAFETY MEASURES IN PLACE. PLAN OF CARE REVIEWED.
--- NOTE | 2019-06-06 07:20 | NUR ---
Endorsed patient to AM shift RN for continuity of care; patient in stable condition.
--- NOTE | 2019-06-06 07:46 | NUR ---
SPOKE WITH DR PORTER ON THE TELEPHONE AND INFORMED MD THAT PT REPORTS FOREIGN BODY IS GONE AND PT DENIES ANY THROAT PAIN. PT WAS ABLE TO DRINK WATER WITH PM NURSE MAC. PER DR PORTER, HE WANTS TO GO THROUGH WITH THE EGD. INFORMED PT, PT VERBALIZED UNDERSTANDING AND AGREED.
[2019-06-06 08:00] VITALS: BP 143/82
[2019-06-06] MEDS: ALBUTEROL SULFATE/IPRATROPIU 3 ML SOL IH PRN ×2 (08:29→15:08)
--- NOTE | 2019-06-06 08:40 | NUR ---
CALLED TO THE BEDSIDE BY THE RN DUE TO PT SOB. SPO2 93% PT SITTING ON EDGE OF BED TRIPODING. GAVE PT PRN DUO. PT STATES SHE FEELS MUCH BETTER AND NOW SITTING BACK ON BED 45'. PT STATES HOME MED IS TRILOGY. WILL CONTINUE TO MONITOR PT.
--- NOTE | 2019-06-06 08:47 | NUR ---
PATIENT HAS BEEN SCREENED AND CATEGORIZED HIGH NUTRITION RISK. PATIENT WILL BE SEEN WITHIN 1-2 DAYS OF ADMISSION. 06/05/19-06/06/19
[2019-06-06] MEDS: VITAMIN D 400 IU TAB PO SCH (09:00)
[2019-06-06] MEDS ORDERED: PANTOPRAZOLE 40 MG TABEC PO SCH (09:00)
[2019-06-06] MEDS: GABAPENTIN 300 MG CAP PO SCH (09:00)
[2019-06-06] MEDS: SPIRONOLACTONE 25 MG TAB PO SCH (09:00)
[2019-06-06] MEDS: amLODIPine 5 MG TAB PO SCH (09:00)
[2019-06-06] MEDS: ASCORBIC ACID 500 MG TAB PO SCH (09:00)
[2019-06-06] MEDS: FOLIC ACID 1 MG TAB PO SCH (09:00)
--- NOTE | 2019-06-06 09:06 | NUR ---
RECEIVED TELEPHONE ORDER FROM DR ORELLANA FOR K-RIDER 40MEQ ONCE WITH LIDOCAINE AND K-DUR 40MEQ ONCE. WILL PUT IN ORDER.
[2019-06-06] MEDS: PANTOPRAZOLE 40 MG INJ VIAL IVP SCH (09:09)
--- NOTE | 2019-06-06 09:12 | NUR ---
ADMINISTERED SCHEDULED PROTONIX, ALL OTHER SCHEDULED PO MEDICATIONS NOT GIVEN DUE TO PT IS NPO AND PT REPORTS NOT FEELING COMFORTABLE TAKING ANY MEDICATIONS ON AN EMPTY STOMACH. WILL CONTINUE TO MONITOR PT.
[2019-06-06] MEDS ORDERED: POTASSIUM CHLORIDE 10 MEQ TABER PO SCH (09:24)
[2019-06-06] MEDS ORDERED: fentaNYL 0.05 MG/ML VIAL ONE (09:44)
[2019-06-06] MEDS ORDERED: MIDAZOLAM 2 MG/2 ML VIAL ONE ×2 (09:44→09:45)
[2019-06-06] MEDS ORDERED: diphenhydrAMINE 50 MG/ML VIAL ONE (09:45)
[2019-06-06] MEDS: MIDAZOLAM 2 MG/2 ML VIAL IVP ONE ×2 (09:56→10:39)
[2019-06-06] MEDS: fentaNYL 0.05 MG/ML VIAL IVP ONE ×2 (09:57→10:38)
[2019-06-06] MEDS ORDERED: POTASSIUM CHLORIDE 40 MEQ, LIDOCAINE MPF 1% - 5 mL VIAL 25 MG in NACL 0.9% 250 ML IV SCH (10:00)
--- NOTE | 2019-06-06 10:30 | NUR ---
PT CAME BACK FROM OR. PT STABLE, AWAKE, ALERT AND ORIENTED X4. NO SIGNS OF DISTRESS NOTED. WILL CONTINUE TO MONITOR.
[2019-06-06] MEDS: NACL 0.9% 1,000 ML IV SCH (11:27)
--- NOTE | 2019-06-06 11:30 | NUR ---
ADMINISTERED SCHEDULED MEDICATIONS, PT TOLERATED WELL. NO OTHER NEEDS AT THIS TIME.
--- NOTE | 2019-06-06 12:07 | NUR ---
06/06/19 RD INITIAL ASSESSMENT COMPLETED PLEASE REFER TO NUTRITION ASSESSMENT UNDER CARE ACTIVITY FOR ESTIMATED NUTRITIONAL NEEDS. 1. CONTINUE REGULAR DIET TOLERATED 2. RECOMMEND SWALLOW EVALUATION IF PATIENT IS UNABLE TO TOLERATE REGULAR TEXTURE 3. RD TO FOLLOW-UP 3-5 DAYS, MODERATE RISK SIDDHARTHA EDWARDS, RD
--- NOTE | 2019-06-06 13:25 | NUR ---
PE RESTING IN BED, NO OTHER NEEDS AT THIS TIME. WILL CONTINUE TO MONITOR.
--- NOTE | 2019-06-06 15:50 | NUR ---
VITAL SIGNS TAKEN, PT STABLE. NO SIGNS OF DISTRESS NOTED.
[2019-06-06 16:00] VITALS: BP 144/67
--- NOTE | 2019-06-06 17:17 | NUR ---
ADMINISTERED SCHEDULED MEDICATION AND PRN TORADOL FOR 7/10 NECK PAIN. PT TOLERATED WELL. WILL CONTINUE TO MONITOR.
--- NOTE | 2019-06-06 17:44 | NUR ---
PAGED DR CROW.
--- NOTE | 2019-06-06 17:45 | NUR ---
SPOKE WITH DR PORTER REGARDING PT'S PLAN OF CARE. PER MD, PATIENT IS STABLE TO BE DISCHARGED.
--- NOTE | 2019-06-06 17:50 | NUR ---
PAGED DR ORELLANA.
--- NOTE | 2019-06-06 18:00 | NUR ---
RECEIVED DISCHARGED ORDER FROM DR ORELLANA. PER DR ORELLANA, CONTINUE PT'S HOME MEDICATIONS AND FOLLOW UP WITH DR PECK FOR THE RESULT OF THE BIOPSY.
--- NOTE | 2019-06-06 18:45 | NUR ---
D/C INSTRUCTIONS AND PAPERWORK GIVEN, PT VERBALIZED UNDERSTANDING. QUESTIONS AND CONCERNS WERE ADDRESSED. D/C IV, CATHETER TIP INTACT, BLEEDING CONTROLLED. SKIN INTACT, PT RECEIVED PNA VACCINE IN AUG 2018 AND FLU VACCINE IN SEP 2018. PT AMBULATES WITH ASSIST. PT STABLE, AAOX4, COMMUNICATES APPROPRIATELY WITH STAFF. PT TOOK ALL OF BELONGINGS HOME. PT PICKED UP BY SISTER. ESCORTED PT AND FAMILY TO THE LOBBY. PT'S SISTER WILL DRIVE PATIENT BACK HOME.
== END 2019-06-06 18:45 | disposition home or self-care (01) | DRG 206 ==
LOC: MED 00:49 → MTU 03:14
PROVIDERS: ADMIT Internal Medicine; ATTEND Internal Medicine
PROC: 0DB38ZX Excision of Lower Esophagus, Via Natural or Artificial Opening Endoscopic, Diagnostic (ICD-10-PCS; principal; 2019-06-06 09:45)
DX: T17.428A Food in trachea causing other injury, initial encounter (principal); Z68.1 Body mass index [BMI] 19.9 or less, adult; G90.50 Complex regional pain syndrome I, unspecified; E44.1 Mild protein-calorie malnutrition; J96.10 Chronic respiratory failure, unspecified whether with hypoxia or hypercapnia; K29.70 Gastritis, unspecified, without bleeding; K44.9 Diaphragmatic hernia without obstruction or gangrene; Z88.1 Allergy status to other antibiotic agents; Z88.8 Allergy status to other drugs, medicaments and biological substances; Z90.49 Acquired absence of other specified parts of digestive tract; F17.210 Nicotine dependence, cigarettes, uncomplicated; I10 Essential (primary) hypertension; J44.9 Chronic obstructive pulmonary disease, unspecified; E78.5 Hyperlipidemia, unspecified; K59.09 Other constipation; X58.XXXA Exposure to other specified factors, initial encounter; Y93.89 Activity, other specified; Y92.89 Other specified places as the place of occurrence of the external cause; Y99.8 Other external cause status
CPT/HCPCS: 36415; 70360; 70490; 71045; 71250; 80053; 80305; 81003; 83735; 84100; 84436; 84443; 85025; 85610; 85730; 87081; 88305; 88312; 88313; 93005; 94640; 96374; 96375; 96376; 99285; C9113; J0360; J1200; J1450; J1610; J1885; J2001; J2250; J2405; J3010; J3480; J7030; J7620; J8597; Q0092

== ENCOUNTER 2019-09-12 18:15 | Inpatient (IN) | payer OTHER, MEDICARE ==
[~2019-09-12] VITALS: Ht 170.2 cm; Wt 44.9 kg
[~2019-09-12 18:15] MED LIST changes: +AMLO10TA PO; -AMLO5TAB PO; +ELA10 PO; -FLUC200T PO; +GABA400C PO; +METO-485 PO; -OMEP-113 PO; +PANT40EC PO; -POTA20PA PO; -SIMV40TA1 PO; +SPIR50TA PO; -[UNRECOGNIZED DRUG - CODE] PO
--- NOTE | 2019-09-12 18:17 | NUR ---
PT LISANDROA ALS AND PLACED IN BED 10.
[2019-09-12] MEDS ORDERED: MORPHINE SULFATE 4 MG/ML SYR IVP ONE (18:25)
[2019-09-12] MEDS ORDERED: ONDANSETRON 4 MG/2 ML VIAL IVP ONE (18:25)
[2019-09-12 18:27] VITALS: BP 132/86
--- NOTE | 2019-09-12 18:32 | NUR ---
X-Ray at bedside.
--- NOTE | 2019-09-12 18:43 | NUR ---
X RAY COMPLETED AT BEDSIDE.
--- NOTE | 2019-09-12 18:47 | NUR ---
PT BIB EMS FROM HOME WITH C/O FALL TO RIGHT HIP. PT LIVES ALONE. PT REPORTS RIGHT HIP PAIN 10/10. PT LEG FLEXED TO POSITION OF COMFORT PER PT. NO OBVIOUS DEFORMITES, SWELLING OR DISCOLORATION NOTED. PT IS ABLE TO ANSWER QUESTIONS WITH CLEAR SPEECH. PT DENIES ANY CP, SOB, OR COUGH AT THIS TIME; PATIENT POSITIONED FOR COMFORT; HOB ELEVATED; BEDRAILS UP X2; BED DOWN IN LOWEST POSITION. ER MD MADE AWARE OF PT STATUS. HX: COPD, RADS, ALS ALLERGY: DEMEROL, AMOXICILLIN
[2019-09-12 19:13] LABS: BASOPHILS # (AUTO) 0.1 K/uL (0.00-0.22); BASOPHILS % (AUTO) 0.3 % (0.0-2.0); HEMATOCRIT 34.2 % (36-48); HEMOGLOBIN 10.9 g/dL (12.0-16.0); LYMPHOCYTES # (AUTO) 0.6 K/uL (2.5-16.5); LYMPHOCYTES % (AUTO) 3.3 % (20.5-51.1); MEAN CORPUSCULAR HEMOGLOBIN 27 pg (27-31); MEAN CORPUSCULAR HGB CONC 32 g/dL (33-37); MEAN CORPUSCULAR VOLUME 85.5 fL (80-94); MONOCYTES # (AUTO) 1.1 K/uL (0.8-1.0); MONOCYTES % (AUTO) 6.1 % (1.7-9.3); NEUTROPHILS # (AUTO) 16.3 K/uL (1.8-7.7); NEUTROPHILS % (AUTO) 90.3 % (42.2-75.2); PLATELET COUNT (AUTO) 497 K/uL (140-450); RED CELL DISTRIBUTION WIDTH 16.3 % (11.6-13.7); WHITE BLOOD COUNT (AUTO) 18.1 K/uL (4.8-10.8)
[2019-09-12 19:22] LABS: ANION GAP 13.4 (8-16); CARBON DIOXIDE 32.1 mmol/L (21-32); CREATININE 0.7 mg/dL (0.6-1.3); POTASSIUM 3.5 mmol/L (3.5-5.1)
--- NOTE | 2019-09-12 19:27 | NUR ---
REPORT GIVEN TO YADIRA ZAYAS.
[2019-09-12 19:28] LABS: ALBUMIN 2.5 g/dL (3.4-5.0); TOTAL BILIRUBIN 0.8 mg/dL (0.0-1.0)
--- NOTE | 2019-09-12 19:44 | NUR ---
PT RETURNED TO CT VIA GURNEY WITH JEFFREY, EMT.
[2019-09-12] MEDS ORDERED: NACL 0.9% 1,000 ML IV ONE (19:50)
--- NOTE | 2019-09-12 20:20 | NUR ---
PT RESTING IN BED TALKING TO NEIGHBOR AT BEDSIDE. ALERT AND ORIENTED. ALL NEEDS MET AT THIS TIME. WILL CONTINUE TO MONITOR.
--- NOTE | 2019-09-12 20:46 | NUR ---
HR RANGING BETWEEN [phone]. ERMD MADE AWARE OF PT HR.
--- NOTE | 2019-09-12 21:15 | NUR ---
PT RESTING IN BED WITH SISTER KIMBERLYN AT BEDSIDE. ALL NEEDS MET AT THIS TIME. KIMBERLYN CONTACT NUMBER:
[2019-09-12] MEDS ORDERED: ACETAMINOPHEN 325 MG TAB PO PRN (21:35)
[2019-09-12] MEDS ORDERED: ONDANSETRON 4 MG/2 ML VIAL IVP PRN (21:35)
[2019-09-12 21:54] VITALS: BP 140/70
--- NOTE | 2019-09-12 21:54 | NUR ---
RECIEVED PT FROM ER /GRIFFIN , AA0X4 , WITH O2 3LPM/NC - O2 SAT 97% , ACCOMPANIED WITH HER SISTER . S/P FALL - TRANSFER TO BED BY 4 PERSON BY MANUALLY . ADMISSION ASSESSMENT DONE - MRSA SPECIMEN COLLECTED AND SENT TO LAB .ON FALL PRECAUTION PROTOCOL - BED ALARM ON , CALL LIGHT WITHIN REACH , PT IS CONTINENT BUT - PUT ON DIAPER FOR THE MEANTIME DUE TO HIP PAIN - SUSPECTED FRX. DUE TO RECENT FALL HX.PLAN OF CARE DISCUSSED AND VERBALIZE UNDERSTANDING . WILL CONT. TO MONITOR.
--- NOTE | 2019-09-12 21:55 | NUR ---
Transfer of care and report given to MARQUEZ Roberts
--- NOTE | 2019-09-12 21:55 | NUR ---
Patient will be admitted to care of Dr. Mello. Admited to Tele. Will go to room 122a. Belongings list completed. Report to MARQUEZ Roberts.
[2019-09-12] MEDS ORDERED: SIMV40TA1 PO (22:36)
[2019-09-12] MEDS ORDERED: ALBU-118 IH (22:36)
[2019-09-12] MEDS ORDERED: CHOL400T12 PO (22:36)
[2019-09-12] MEDS ORDERED: FOLI1TAB90 PO (22:36)
[2019-09-13] VITALS: BP 140/90
--- NOTE | 2019-09-13 01:32 | NUR ---
REFER TO DOCTOR COMPUTER OPERATIONS SPECIALIST ( DR DIXIE JOHNSON ) FOR FURTHER ORDERS MADE T.O AND CARRIED OUT . HE SAID THE ANTIBIOTIC C/O AP.
[2019-09-13] MEDS: NACL 0.45% 1,000 ML IV SCH ×2 (01:45→21:10)
[2019-09-13 04:00] VITALS: BP 140/90
--- NOTE | 2019-09-13 04:00 | NUR ---
SLEEPING , BUT EASILY AWAKABLE - AAOX4 , NO SIGNS OF DISTRESS NOTED AT THIS TIME.- RT ON DUTY CHECK THE O2 SET UP
--- NOTE | 2019-09-13 05:00 | NUR ---
SLEEPING - BUT EASILY AWAKEABLE - AAOX4 . NO SIGNS OF DISTRESS NOTED AT THIS TIME.
--- NOTE | 2019-09-13 06:00 | NUR ---
SLEEPING . BUT EASILY AWAKEABLE - AAOX4 , NO SIGNS OF DISTRESS NOTED AT THIS TIME.
--- NOTE | 2019-09-13 07:33 | NUR ---
ENDORSED TO AM SHIFT NURSE , EASILY AWAKEABLE - AAOX4 , WITH LATEST CARDIAC TRACING OF SR.- ON WALLPAPER HANGER.
--- NOTE | 2019-09-13 07:33 | NUR ---
Received report from shift foreman nurse. Pt in bed. no signs of distress. Call light in reach. [id number]
[2019-09-13 08:00] VITALS: BP 158/61
[2019-09-13 08:01] LABS: ANION GAP 11.1 (8-16); CARBON DIOXIDE 30.7 mmol/L (21-32); CREATININE 0.4 mg/dL (0.6-1.3)
--- NOTE | 2019-09-13 08:28 | NUR ---
PATIENT HAS BEEN SCREENED AND CATEGORIZED HIGH NUTRITION RISK. PATIENT WILL BE SEEN WITHIN 1-2 DAYS OF ADMISSION. 09/13/[address]
[2019-09-13 08:43] LABS: POTASSIUM 2.8 mmol/L (3.5-5.1)
[2019-09-13] MEDS: DOCUSATE SODIUM 250 MG GELCAP PO SCH ×2 (09:12→21:34)
[2019-09-13] MEDS: HYDROcodone/APAP 5/325 MG 1 TAB TAB PO PRN (09:24)
[2019-09-13] MEDS: KCL 20 MEQ/WATER INJ PREMIX 100 ML IV SCH ×2 (09:45→11:30)
--- NOTE | 2019-09-13 10:56 | NUR ---
Pt resting in bed. No signs of distress. No C/O pain. Call light in reach.
[2019-09-13 12:00] VITALS: BP 154/73
--- NOTE | 2019-09-13 12:29 | NUR ---
As per Dr. James. Discontinued the second bag of IV potassium. Dr James requested to continue potassium PO meds. Also notified Dr. James that K was infusing at 20 ml/hr due to pain at IV site.
[2019-09-13] MEDS: POTASSIUM CHLORIDE 10 MEQ TABER PO SCH ×3 (12:38→21:35)
[2019-09-13] MEDS: HYDROmorphone 1 MG/ML AMP IVP PRN ×3 (12:46→22:10)
--- NOTE | 2019-09-13 13:05 | NUR ---
Pt resting in bed. Pt did not want to eat lunch lunch. Says her stomach hurts when she eats. No signs of distress. Call light in reach.
--- NOTE | 2019-09-13 13:19 | NUR ---
09/13/19 RD INITIAL ASSESSMENT COMPLETED * PLEASE REFER TO NUTRITION ASSESSMENT UNDER CARE ACTIVITY FOR ESTIMATED NUTRITIONAL NEEDS. RD RECOMMENDATIONS: 1. RECOMMEND CONTINUE TO 2GM NA DIET. 2. RD WILL OFFER ONS AGAIN AT F/U. 3. RD WILL F/U 2-3DAYS; HIGH RISK. PAWAN MENDOZA RD
[2019-09-13] MEDS ORDERED: cloNIDine 0.1 MG TAB PO PRN (14:05)
--- NOTE | 2019-09-13 14:32 | NUR ---
Pt resting in bed.No distress. Call light in reach. [id number]
[2019-09-13 16:00] VITALS: BP 123/65
[2019-09-13] MEDS ORDERED: ALBUTEROL HFA MDI 90 MCG/ACTUATION 8 GM INH SCH (16:00)
[2019-09-13] MEDS: METOCLOPRAMIDE 10 MG TAB PO SCH (16:21)
[2019-09-13] MEDS: ALBUTEROL 0.083% 2.5 MG/3 ML NEBU INH PRN ×3 (17:14→22:09)
--- NOTE | 2019-09-13 17:25 | NUR ---
PLACED PT ON 3.5 L N\C PER PT
--- NOTE | 2019-09-13 18:40 | NUR ---
Pt is resting in bed. No signs of distress. Sister by bedside. Call light in reach. [id number] Addendum: 09/13/19 at 1920 by Megan Garcia RN Wrong patient.
--- NOTE | 2019-09-13 19:21 | NUR ---
Shift report endorsed to sales and service officer nurse. Pt resting in bed. No signs of distress. Call light in reach. [id number]
--- NOTE | 2019-09-13 19:22 | NUR ---
RECD. RESTING IN BED, AWAKE, A/OX4. RESPIRATION EVEN AND UNLABORED. IV OF 1/2 NS AT 50 ML/HR INFUSING, RIGHT HAND G20. 02 SAT - 96% ON 3 LITERS N/C. NOTED BRUISES ON BILATERAL UPPER EXTREMITIES, S/P FALL AT HOME, WITH RIGHT HIP FRACTURE. PLAN OF CARE FOR THE SHIFT DISCUSSED. VERBALIZED UNDERSTANDING. DENIES PAIN 0/10.
--- NOTE | 2019-09-13 19:40 | NUR ---
ANESTHESIOLOGIST DR. BRADFORD CALLED, WANTS ATTENDING MD TO ORDER CARDIOLOGY CONSULT FOR NEW ONSET ATRIL FIBRILLATION BEFORE SURGERY CAN BED DONE, INFORMED CHARGE NURSE JACKELYN.
[2019-09-13 20:00] VITALS: BP_SYST 137; BP_SYST 139; BP_DIAS 67; BP_DIAS 69
--- NOTE | 2019-09-13 20:00 | NUR ---
VERY UPSET, WANTS HER INHALER BACK, EXPLAINED THAT IT WILL BE GIVEN TO PHARMACY. INSISTED TO GET IT BACK, WILL ENDORSE TO AM NURSE TO GET IT BACK.
--- NOTE | 2019-09-13 21:09 | NUR ---
CALLED Kevyn ORTATALKED ABOUT PT'S HR,AND EKG RESULT.FAXED PT'S EKG AND LAST STRIP FOR HIM ALSO ORDERED.ECHO IN AM.HE WILL COME AM TO READ IT BEFORE SURGERY.
[2019-09-13] MEDS: SIMVASTATIN 40 MG TAB PO SCH (21:34)
[2019-09-13] MEDS: AMITRIPTYLINE 10 MG TAB PO SCH (21:35)
--- NOTE | 2019-09-13 22:12 | NUR ---
CALLED TO SEE PATIENT BY RN. PATIENT COMPLAINING OF FEELING SHORT OF BREATH AND HAVING DIFFICULTY BREATHING. PRN BREATHING TREATMENT ADMINISTERED. TOLERATED TX WELL WITHOUT ADVERSE SIDE EFFECTS. WILL CONTINUE TO MONITOR CLOSELY. Addendum: 09/13/19 at 2226 by Aurora Siddiqui RT PATIENT REPORTS THERE IS "SOME IMPROVEMENT" IN BREATHING POST TREATMENT.
--- NOTE | 2019-09-13 23:00 | NUR ---
GETS SOB, RT CALLED AND CAME TO GIVE BREATHING TX AND A D0SE 0F PATIENT'S INHALER.
[2019-09-14] VITALS: BP_SYST 139; BP_SYST 140; BP_DIAS 69; BP_DIAS 70
--- NOTE | 2019-09-14 | NUR ---
RESTING COMFORTABLY IN BED. NO SOB NOTED.
[2019-09-14] MEDS: NACL 0.45% 1,000 ML IV SCH ×3 (02:30→23:29)
--- NOTE | 2019-09-14 02:56 | NUR ---
Patient's Plan of Care was discussed and reviewed with JAKE: KAN
--- NOTE | 2019-09-14 03:00 | NUR ---
CLEANSED AND REPOSITIONED IN BED WITH PILLOWS.
[2019-09-14 04:30] VITALS: BP 133/73
--- NOTE | 2019-09-14 05:00 | NUR ---
AWAKE IN BED, NOTED PATIENT HARSH VOICE, COMPLAINING OF PROBLEM WITH HER THROAT, HARD TO SWALLOW.
[2019-09-14] MEDS: HYDROmorphone 1 MG/ML AMP IVP PRN ×3 (05:04→17:40)
[2019-09-14 06:54] LABS: PROTHROMBIN TIME 9.9 secs (10.8-13.4)
--- NOTE | 2019-09-14 07:25 | NUR ---
CONDITION REMAIN STABLE. ENDORSED TO AM SHIFT NURSE FOR CONTINUITY OF CARE.
--- NOTE | 2019-09-14 07:49 | NUR ---
RECIEVED REPORT FROM TAX SERVICES PROFESSIONAL NURSE. PT RESTING IN BED, AAOX4. RESPIRATIONS EVEN AND UNLABORED. IV OF 1/2 NS AT 50 ML/HR INFUSING, RIGHT HAND G20. 02 SAT IS 96% ON RA. NOTED BRUISES ON BILATERAL UPPER EXTREMITIES, S/P FALL AT HOME, WITH RIGHT HIP FRACTURE. PLAN OF CARE DISCUSSED WITH PT AND PT VERBALIZED UNDERSTANDING. BED IN LOW POSITION, CALL LIGHT WITHIN REACH. WILL ROUND FREQUENTLY ON PT.
[2019-09-14 08:10] VITALS: BP 133/71
[2019-09-14] MEDS ORDERED: POTASSIUM CHLORIDE 40 MEQ, LIDOCAINE MPF 1% 25 MG in NACL 0.9% 250 ML IV SCH (08:30)
[2019-09-14 08:43] LABS: ANION GAP 9.6 (8-16); CARBON DIOXIDE 32.1 mmol/L (21-32); CREATININE 0.4 mg/dL (0.6-1.3); POTASSIUM 4.7 mmol/L (3.5-5.1)
[2019-09-14] MEDS: METOCLOPRAMIDE 10 MG TAB PO SCH ×3 (09:00→17:00)
[2019-09-14] MEDS ORDERED: NON-FORMULARY ITEM (Folic Acid 1 MG) PO SCH (09:00)
[2019-09-14] MEDS: FOLIC ACID 1 MG TAB PO SCH (09:00)
[2019-09-14] MEDS ORDERED: NON-FORMULARY ITEM (Fluticasone/Umeclidin/Vilanter (Trelegy Ellipta 100-62.5-25) 1 EACH) IH SCH (09:00)
[2019-09-14] MEDS: DOCUSATE SODIUM 250 MG GELCAP PO SCH ×2 (09:00→21:00)
[2019-09-14] MEDS: PANTOPRAZOLE 40 MG TABEC PO SCH (09:00)
--- NOTE | 2019-09-14 09:24 | NUR ---
PT RESTING IN BED. ALL NEEDS MET. WILL CONTINUE TO ROUND FREQUENTLY ON PT. BED IN LOW POSITION, CALL LIGHT WITHIN REACH.
[2019-09-14] MEDS: SPIRONOLACTONE 25 MG TAB PO SCH (10:04)
[2019-09-14] MEDS: amLODIPine 5 MG TAB PO SCH (10:04)
--- NOTE | 2019-09-14 11:32 | NUR ---
PT RESTING IN BED. ALL NEEDS MET. WILL CONTINUE TO MONITOR PT CLOSELY.
[2019-09-14 12:00] VITALS: BP 135/70
--- NOTE | 2019-09-14 13:47 | NUR ---
PT WAS TURNED AND REPOSITIONED. PT WAS REFUSING BUT WAS ABLE TO CONVINCE HER. HAD 4 PEOPLE IN TOTAL TO MOVE PT.
--- NOTE | 2019-09-14 15:38 | NUR ---
PT SLEEPING. ALL NEEDS MET. WILL CONTINUE TO ROUND FREQUENTLY ON PT. BED IN LOW POSITION, CALL LIGHT WITHIN REACH.
[2019-09-14 16:00] VITALS: BP 135/52
--- NOTE | 2019-09-14 17:29 | NUR ---
PT EATING DINNER. ALL NEEDS MET. WILL CONTINUE TO ROUND FREQUENTLY ON PT. BED IN LOW POSITION, CALL LIGHT WITHIN REACH.
--- NOTE | 2019-09-14 19:29 | NUR ---
ENDORSED PT TO MEDICAL RADIATION TECH FOR CONTINUITY OF CARE. PT IN STABLE CONDITION.
[2019-09-14 20:10] VITALS: BP 117/63
--- NOTE | 2019-09-14 20:10 | NUR ---
SEEN PT AWAKE, ALERT AND ORIENTED APPEARS COMFORTABLE. PT ASKING FOR HER PAIN MEDICINE. INFORMED HER ITS NOT DUE YET. OFFERED NORCO BUT REFUSED. INITIAL ASSESSMENT DONE. VITAL SIGNS CHECKED. PT REFUSED TO BE REPOSITIONED AND SAID "I'M OK." PT DOESN'T HAVE ARMED BAND. WILL REQUEST FROM STUDENT SUPPORT COUNSELOR. CALL LIGHT W/IN REACH. SAFETY ENSURED.
--- NOTE | 2019-09-14 20:34 | NUR ---
RECEIVED PATIENT ON 3.5L NASAL CANNULA, PULSE OX SAT 94%. PATIENT DENIES SOB. PRN HHN NOT INDICATED AT THIS TIME. NO ACUTE RESPIRATORY DISTRESS NOTED AT THIS TIME. WILL CONTINUE TO MONITOR.
[2019-09-14] MEDS: AMITRIPTYLINE 10 MG TAB PO SCH (21:00)
[2019-09-14] MEDS: SIMVASTATIN 40 MG TAB PO SCH (21:05)
--- NOTE | 2019-09-14 21:05 | NUR ---
SEEN PT AWAKE. MEDICATIONS GIVEN. PT REFUSED COLACE AND ELAVIL AND SAID, "THESE MEDICATIONS GIVES ME UPSET STOMACH, I DON'T WANT TO TAKE IT." TEACHINGS PROVIDED BUT STILL REFUSED. PT DENIES ANY OTHER NEEDS.
--- NOTE | 2019-09-14 23:25 | NUR ---
PT AWAKE, APPEARS COMFORTABLE. PT REFUSED TO BE REPOSITIONED. VITAL SIGNS CHECKED. CALL LIGHT W/IN REACH. IVF INFUSING WELL.
[2019-09-15 00:25] VITALS: BP 132/74
--- NOTE | 2019-09-15 02:40 | NUR ---
SEEN PT W/ EYES CLOSED, APPEARS COMFORTABLE. IVF INFUSING WELL. WILL CONTINUE TO MONITOR.
[2019-09-15 04:40] VITALS: BP 142/80
--- NOTE | 2019-09-15 04:40 | NUR ---
SEEN PT APPEARS ASLEEP BUT EASILY AROUSABLE. VITAL SIGNS CHECKED. PT DENIES ANY PAIN. IVF INFUSING WELL. WILL CONTINUE TO MONITOR. SAFETY ENSURED. REMINDED PT THAT SHE'S NOTHING BY MOUTH. PT VERBALIZED UNDERSTANDING.
--- NOTE | 2019-09-15 05:42 | NUR ---
PT REFUSED TO BE REPOSITIONED. IVF INFUSING WELL. CALL LIGHT W/IN REACH.
[2019-09-15 06:20] LABS: PROTHROMBIN TIME 9.7 secs (10.8-13.4)
[2019-09-15 06:28] LABS: BASOPHILS % (AUTO) 0.3 % (0.0-2.0); EOSINOPHILS % (AUTO) 0.3 % (0.0-4.0); HEMOGLOBIN 9.3 g/dL (12.0-16.0); LYMPHOCYTES % (AUTO) 8.7 % (20.5-51.1); MEAN CORPUSCULAR HEMOGLOBIN 27 pg (27-31); MEAN CORPUSCULAR HGB CONC 32 g/dL (33-37); MEAN CORPUSCULAR VOLUME 85.8 fL (80-94); MONOCYTES # (AUTO) 0.8 K/uL (0.8-1.0); MONOCYTES % (AUTO) 6.5 % (1.7-9.3); NEUTROPHILS # (AUTO) 9.9 K/uL (1.8-7.7); NEUTROPHILS % (AUTO) 84.2 % (42.2-75.2); PLATELET COUNT (AUTO) 393 K/uL (140-450); RED BLOOD CELL COUNT(AUTO) 3.38 MIL/uL (4.20-5.40); RED CELL DISTRIBUTION WIDTH 16.5 % (11.6-13.7); WHITE BLOOD COUNT (AUTO) 11.8 K/uL (4.8-10.8)
[2019-09-15 06:30] LABS: ALBUMIN 1.9 g/dL (3.4-5.0); ANION GAP 15.2 (8-16); CARBON DIOXIDE 28.4 mmol/L (21-32); CREATININE 0.3 mg/dL (0.6-1.3); POTASSIUM 3.6 mmol/L (3.5-5.1); TOTAL BILIRUBIN 0.6 mg/dL (0.0-1.0)
--- NOTE | 2019-09-15 07:00 | NUR ---
REPORT GIVEN TO DAYSHIFT NURSE.
--- NOTE | 2019-09-15 07:38 | NUR ---
RECEIVED ENDORSEMENT FROM FILM LIBRARIAN FOR CONTINUITY OF CARE FROM YESTERDAY. PT IS IN STABLE CONDITION AT THIS TIME. WILL CONTINUE TO MONITOR PT CLOSELY.
[2019-09-15 08:00] VITALS: BP 148/84
[2019-09-15] MEDS: METOCLOPRAMIDE 10 MG TAB PO SCH ×3 (09:00→17:00)
[2019-09-15] MEDS: SPIRONOLACTONE 25 MG TAB PO SCH (09:00)
[2019-09-15] MEDS: FOLIC ACID 1 MG TAB PO SCH (09:00)
[2019-09-15] MEDS: PANTOPRAZOLE 40 MG TABEC PO SCH (09:00)
[2019-09-15] MEDS: DOCUSATE SODIUM 250 MG GELCAP PO SCH ×2 (09:00→21:59)
[2019-09-15] MEDS: amLODIPine 5 MG TAB PO SCH (09:31)
--- NOTE | 2019-09-15 09:42 | NUR ---
ADMINISTERED BP MED TO PT ONLY. PT REFUSING ALL OTHER MEDS AT THIS TIME DUE TO BEING NPO. ALL NEEDS MET. WILL CONTINUE TO ROUND FREQUENTLY ON PT.
[2019-09-15] MEDS: HYDROmorphone 1 MG/ML AMP IVP PRN ×2 (10:48→21:06)
--- NOTE | 2019-09-15 11:28 | NUR ---
PT RETING. ALL NEEDS MET. WILL CONTINUE TO ROUND FREQUENTLY ON PT. BED IN LOW POSITION, CALL LIGHT WITHIN RERACH.
[2019-09-15 12:00] VITALS: BP 139/79
--- NOTE | 2019-09-15 12:00 | NUR ---
PT TAKEN TO SURGERY. PT LEFT IN STABLE CONDITION.
[2019-09-15] MEDS ORDERED: fentaNYL 0.05 MG/ML VIAL ONE (12:05)
[2019-09-15] MEDS ORDERED: ONDANSETRON 4 MG/2 ML VIAL ONE (12:07)
[2019-09-15] MEDS ORDERED: KETOROLAC 15 MG/ML VIAL ONE (12:07)
[2019-09-15] MEDS ORDERED: DEXAMETHASONE 4 MG/ML VIAL ONE (12:07)
[2019-09-15] MEDS ORDERED: PROPOFOL 200 MG/20 ML VIAL IV ONE (12:07)
[2019-09-15] MEDS ORDERED: DESFLURANE 240 ML BTL INH ONE (12:07)
[2019-09-15] MEDS ORDERED: HYDROmorphone 1 MG/ML AMP IVP PRN (13:05)
[2019-09-15] MEDS ORDERED: ONDANSETRON 4 MG/2 ML VIAL IVP PRN (13:05)
--- NOTE | 2019-09-15 13:42 | NUR ---
09/15/19 RD FOLLOW UP COMPLETED PLEASE REFER TO NUTRITION ASSESSMENT UNDER CARE ACTIVITY FOR ESTIMATED NUTRITIONAL NEEDS. 1. CONTINUE NPO MEDICALLY NECESSARY 2. IF/WHEN PATIENT IS STABLE CONSIDER ADVANCING DIET TO REGULAR WITH ENSURE BID 3. ENCOURAGE INCREASING PO INTAKE 4. RD TO FOLLOW-UP 3-5 DAYS, MODERATE RISK SIDDHARTHA EDWARDS RD
--- NOTE | 2019-09-15 15:40 | NUR ---
PT RETURNED FROM SURGERY. PT IN STABLE CONDITION. BANDAGE OVER RIGHT HIP WHERE ORIF WAS DONE. VITALS STABLE. WILL CONTINUE TO ROUND FREQUENTLY ON PT.
[2019-09-15 16:00] VITALS: BP 129/63
[2019-09-15] MEDS: CLINDAMYCIN 300 MG in DEXTROSE 5% 50 ML IV SCH (17:22)
--- NOTE | 2019-09-15 19:45 | NUR ---
ENDORSED PT TO DIGITAL TRAFFIC COORDINATOR FOR CONTINUITY OF CARE. PT IN STABLE CONDITION
--- NOTE | 2019-09-15 21:33 | NUR ---
RECEIVED PATIENT ON 3L NASAL CANNULA, PULSE OX SAT 95%. PT DENIES SOB AT THIS TIME. PRN HHN NOT INDICATED. NO ACUTE RESPIRATORY DISTRESS NOTED. WILL CONTINUE TO MONITOR.
[2019-09-15] MEDS: AMITRIPTYLINE 10 MG TAB PO SCH (21:59)
[2019-09-15] MEDS: SIMVASTATIN 40 MG TAB PO SCH (21:59)
--- NOTE | 2019-09-16 | NUR ---
PT IN WITH ORIF DONE TODAY INCISION ON THE RIGHT HIP COVERED WITH DRSG . PT WAS DEDICATED WITH DILAUDID IMG FOR PAIN . PT SLEEPING NOW .V/S STABLE . ON SR- ST . ON IV 1/2NS AT 50CC/HR .
[2019-09-16] MEDS: CLINDAMYCIN 300 MG in DEXTROSE 5% 50 ML IV SCH ×2 (01:00→11:11)
[2019-09-16 04:59] VITALS: BP 137/74
[2019-09-16] MEDS: HYDROmorphone 1 MG/ML AMP IVP PRN ×3 (05:59→17:56)
--- NOTE | 2019-09-16 06:00 | NUR ---
PT C/O PAIN ,MEDICATED WITH DILAUDID 1MG PT PAIN /.DRSG INTACT .
--- NOTE | 2019-09-16 06:03 | NUR ---
PATIENT COMPLAINED OF HIP PAIN 06/27. PRN PAIN MED ADMINISTERED PER ORDER. WILL CONTINUE TO MONITOR.
[2019-09-16 07:11] LABS: CREATININE 0.4 mg/dL (0.6-1.3); POTASSIUM 3.9 mmol/L (3.5-5.1)
--- NOTE | 2019-09-16 07:30 | NUR ---
RECEIVED REPORT FROM ACCOUNTING ADMINISTRATIVE ASSISTANT NURSE PATIENT IS AWAKE AND ALERT. NO ACUTE DISTRESS NOTED.
[2019-09-16 07:55] LABS: CARBON DIOXIDE 25.9 mmol/L (21-32)
[2019-09-16 07:56] LABS: BASOPHILS % (AUTO) 0.1 % (0.0-2.0); HEMATOCRIT 29.3 % (36-48); HEMOGLOBIN 9.4 g/dL (12.0-16.0); LYMPHOCYTES # (AUTO) 0.6 K/uL (2.5-16.5); MEAN CORPUSCULAR HEMOGLOBIN 27 pg (27-31); MEAN CORPUSCULAR HGB CONC 32 g/dL (33-37); MEAN CORPUSCULAR VOLUME 84.8 fL (80-94); MONOCYTES # (AUTO) 0.7 K/uL (0.8-1.0); MONOCYTES % (AUTO) 5.4 % (1.7-9.3); NEUTROPHILS % (AUTO) 89.5 % (42.2-75.2); PLATELET COUNT (AUTO) 417 K/uL (140-450); RED BLOOD CELL COUNT(AUTO) 3.46 MIL/uL (4.20-5.40); WHITE BLOOD COUNT (AUTO) 12.3 K/uL (4.8-10.8)
[2019-09-16 08:00] VITALS: BP 132/65
[2019-09-16] MEDS: DOCUSATE SODIUM 250 MG GELCAP PO SCH (09:00)
--- NOTE | 2019-09-16 09:00 | NUR ---
IV TO LFA INFILTRATED, WILL ATTEMPT TO REINSERT IV.
[2019-09-16] MEDS: NACL 0.45% 1,000 ML IV SCH (09:10)
[2019-09-16] MEDS: HYDROcodone/APAP 5/325 MG 1 TAB TAB PO PRN (09:27)
[2019-09-16] MEDS: SPIRONOLACTONE 25 MG TAB PO SCH (09:28)
[2019-09-16] MEDS: FOLIC ACID 1 MG TAB PO SCH (09:29)
[2019-09-16] MEDS: METOCLOPRAMIDE 10 MG TAB PO SCH ×3 (09:29→17:55)
[2019-09-16] MEDS: PANTOPRAZOLE 40 MG TABEC PO SCH (09:29)
[2019-09-16] MEDS: amLODIPine 5 MG TAB PO SCH (09:29)
--- NOTE | 2019-09-16 10:30 | NUR ---
IV TO LFA INFILTRATED. NO IV ACCESS AT THIS TIME. WILL ATTEMPT TO INSERT IV.
--- NOTE | 2019-09-16 11:00 | NUR ---
IV INSERTED TO RIGHT HAND WITH 22G.
[2019-09-16] MEDS: ALBUTEROL 0.083% 2.5 MG/3 ML NEBU INH PRN (11:04)
[2019-09-16 12:00] VITALS: BP 141/54
--- NOTE | 2019-09-16 12:30 | NUR ---
PATIENT C/O PAIN TO RIGHT HIP INCISION 06/27. MEDICATED ORDERED. TOLERATED WELL.
--- NOTE | 2019-09-16 15:39 | NUR ---
PATIENT IN BED, ASLEEP. RESPIRATION EVEN AND UNLABORED. RIGHT HIP DRESSING DRY AND INTACT. IV TO RIGHT HAND 22G INTACT AND PATENT. CALL LIGHT WITHIN REACH.
--- NOTE | 2019-09-16 15:39 | NUR ---
PT ACCEPTED AT [facility] [phone] CAN GO TO ROOM 20 BUT PATIENT WANTED TO GO TO [facility], CALLED [facility] SPOKE WITH AMY STATED NO BED AVAILABLE TODAY AND WILL COME TOMORROW TO EVALUATE. EXPLAINED PATIENT THAT NO BED AVAILABLE AT [facility], PT WANTED HER SISTER TO CHECK [facility] , CALLED HER SISTER MAHOGANY AT [phone] STATED SHE IS ON HER WAY TO SEE IT BUT AT THE SAME TIME PREFERRED [facility] . FAXED ALL THE PAPER WORK TO [facility]. CM TO FOLLOW
[2019-09-16 16:00] VITALS: BP 127/54
--- NOTE | 2019-09-16 16:06 | NUR ---
Neurology Teacher Note: I faxed inquiry to [facility]. I called and spoke with Nicole at [facility] , she stated they will review inquiry and call me back.
--- NOTE | 2019-09-16 16:42 | NUR ---
Med Spa Manager Note: I received a call from patient's sister Anila , she stated she visited [facility] and [facility] . She stated she chose not to tour [facility] . She told me she spoke with patient and patient chose [facility] since there is a private room available. Addendum: 09/16/19 at 1650 by Caro RIZVI Anila is in agreement with patient's transfer to [facility] today, Wax Specialist Carly will arrange transportation.
--- NOTE | 2019-09-16 16:54 | NUR ---
ARRANGED TRANSPORT WITH [facility] ,GRAIN INSPECTOR TIME 7:15 PM PT IS GOING ROOM 20 # TO GIVE REPORT [phone] NOTIFIED MARQUEZ ALVARES
--- NOTE | 2019-09-16 17:30 | NUR ---
REPORT GIVEN TO JAKE BUTTERFIELD IN REGARDS TO TRANSFER FOR CONTINUITY OF CARE AT [facility].
--- NOTE | 2019-09-16 19:05 | NUR ---
REPORT GIVEN TO NURSE MONITORING NURSE THAT PATIENT IS AWAITING TO BE TRANSFERRED TO [facility] FOR CONTINUITY OF CARE. TRANSPORT VIA [facility].
--- NOTE | 2019-09-16 19:06 | NUR ---
RECEIVED BEDSIDE REPORT FROM DAY RN. PT IS AAOX4. PT ON NC WITH 4L. RESPIRATIONS ARE EQUAL AND UNLABORED. PT DENIES PAIN. R ORIF YESTERDAY DRESSING IS C/D/I. PT WITH SENSATION ON BOTH LEGS. PEDAL PULSES PALPABLE BILATERAL. SKIN IS WARM TO TOUCH. COLOR APPROPRIATE FOR ETHNICITY. IV ON R HAND 20G SL. OTHER THAN SURGICAL INCISION SLIN IS INTACT. PT FROM HOME BEING D/C TO [facility] FOR PT. D/C PAPERS SIGN AND DAY RN ALREADY GAVE REPORT PT GOING TO ROOM #120. POC DISCUSSED WITH PT. CALL LIGHT IS WITHIN REACH. WILL CONTINUE TO MONITOR.
[2019-09-16 20:00] VITALS: BP 129/60
--- NOTE | 2019-09-16 20:00 | NUR ---
RT IS AT BEDSIDE. VITAL SIGNS ARE WITHIN NORMAL LIMITS. PT DENIES ANY PAIN. CALL LIGHT IS WITHIN REACH.
--- NOTE | 2019-09-16 20:40 | NUR ---
PATIENT WAS PICKED UP BY MIC TO GO TO [facility]. ALL BELONGINGS WITH PT. D/C PAPERS GIVEN. IV REMOVED CATH INTACT. ARM BAND REMOVED. TELE MONITOR REMOVED. PT LEFT ON LEIRNEY WITH NC ON O2. PT IN STABLE CONDITION. Addendum: 09/17/19 at 0309 by Malena Yoder RN PT REQUIRES OXYGEN. MIC WAS NOT PREPARED AND ASKED TO BORROW O2 TANK FROM [facility] AND THEY WILL BRING BACK. PER DIRECTOR DIGITAL OK.
== END 2019-09-16 20:40 | DRG 480 ==
LOC: MED 18:15 → MTU 21:31
PROVIDERS: ADMIT Internal Medicine Pulmonary Disease; ATTEND Internal Medicine Pulmonary Disease
PROC: 0QS606Z Reposition Right Upper Femur with Intramedullary Internal Fixation Device, Open Approach (ICD-10-PCS; principal; 2019-09-15 12:00)
DX: S72.141A Displaced intertrochanteric fracture of right femur, initial encounter for closed fracture (principal); J96.00 Acute respiratory failure, unspecified whether with hypoxia or hypercapnia; R65.10 Systemic inflammatory response syndrome (SIRS) of non-infectious origin without acute organ dysfunction; E44.0 Moderate protein-calorie malnutrition; J44.9 Chronic obstructive pulmonary disease, unspecified; D72.829 Elevated white blood cell count, unspecified; E87.6 Hypokalemia; I48.91 Unspecified atrial fibrillation; Z88.0 Allergy status to penicillin; F32.9 Major depressive disorder, single episode, unspecified; F17.210 Nicotine dependence, cigarettes, uncomplicated; G89.29 Other chronic pain; I11.9 Hypertensive heart disease without heart failure; Z88.1 Allergy status to other antibiotic agents; Z88.8 Allergy status to other drugs, medicaments and biological substances; Z90.49 Acquired absence of other specified parts of digestive tract; W19.XXXA Unspecified fall, initial encounter; Y93.89 Activity, other specified; Y92.89 Other specified places as the place of occurrence of the external cause; Y99.8 Other external cause status
CPT/HCPCS: 36415; 70450; 71045; 72125; 73502; 80048; 80053; 85025; 85610; 85730; 86886; 86900; 86901; 87081; 93005; 94640; 96374; 96375; 97110; 97161-GP; 97530; 99285; C1763; J0690; J1100; J1170; J1644; J1885; J2001; J2270; J2405; J2704; J3010; J3480; J3490; J7030; J7060; J7613; J8597; Q0092